=== PATIENT | male | born 1955 | race Caucasian/White ===

== ENCOUNTER 2020-01-14 16:53 | Emergency (ER) | payer SELFPAY ==
[~2020-01-14] VITALS: Ht 177.8 cm; Wt 106.6 kg
[~2020-01-14 16:53] MED LIST: ASP81TEC PO; LORA0.5T PO; PNT400TCR PO; PNT40TEC PO; PRAS10TA6 PO; SIMV80TA3 PO; ZLP10T PO
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
[2020-01-14] MEDS ORDERED: ASPIRIN 81 MG CHEW (CHILDREN'S ASA) PO ONE (17:30)
[2020-01-14 17:32] LABS: BASOPHILS % (AUTO) 0 % (0-10); EOSINOPHILS % (AUTO) 1 % (0-10); HEMATOCRIT 49 % (40-54); HEMOGLOBIN 17.5 G/DL (13.3-17.7); LYMPHOCYTES % (AUTO) 13 % (12-44); MEAN CORPUSCULAR HEMOGLOBIN 32 PG (25-34); MEAN CORPUSCULAR HGB CONC 36 G/DL (32-36); MEAN CORPUSCULAR VOLUME 89 FL (80-99); MEAN PLATELET VOLUME 9.8 FL (7.4-10.4); MONOCYTES # (AUTO) 0.4 X 10^3 (0.0-1.0); MONOCYTES % (AUTO) 5 % (0-12); NEUTROPHILS # (AUTO) 6.4 X 10^3 (1.8-7.8); NEUTROPHILS % (AUTO) 81 % (42-75); PLATELET COUNT 171 10^3/uL (130-400); RED CELL DISTRIBUTION WIDTH 13.2 % (10.0-14.5); WHITE BLOOD COUNT 7.9 10^3/uL (4.3-11.0)
[2020-01-14 17:35] VITALS: BP_SYST 136; BP_SYST 140; BP_SYST 143; BP_DIAS 79; BP_DIAS 85; BP_DIAS 87
[2020-01-14 17:41] LABS: PROTHROMBIN TIME PATIENT 13.5 SEC (12.2-14.7)
[2020-01-14 17:49] LABS: ALANINE AMINOTRANSFERASE 31 U/L (0-55); ALBUMIN 4.4 GM/DL (3.2-4.5); ALKALINE PHOSPHATASE 55 U/L (40-136); BILIRUBIN,TOTAL 0.9 MG/DL (0.1-1.0); BUN/CREATININE RATIO 14; CALCIUM 10.1 MG/DL (8.5-10.1); CARBON DIOXIDE 19 MMOL/L (21-32); CHLORIDE 102 MMOL/L (98-107); CREATININE SERUM 1.18 MG/DL (0.60-1.30); GFR ESTIMATED > 60; GLUCOSE 189 MG/DL (70-105); MAGNESIUM 1.4 MG/DL (1.6-2.4); POTASSIUM 4.2 MMOL/L (3.6-5.0); SODIUM 135 MMOL/L (135-145); TOTAL PROTEIN 7.5 GM/DL (6.4-8.2)
--- NOTE | 2020-01-14 17:57 | Diagnostic Imaging Report ---
INDICATION: Chest pain. EXAMINATION: Single view of the chest was obtained. FINDINGS: No focal pulmonary consolidation. The heart size and vascularity are upper limits of normal. No effusion or pneumothorax. IMPRESSION: Borderline cardiomegaly and vascular congestion but no focal consolidation, pleural fluid or convincing evidence for pulmonary edema. Dictated by: Dictated on workstation # [id number]
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
--- OUTSIDE RECORDS SUMMARY | 2020-01-14 19:39 | XMS REPORT ---
Author Author [employer]. Organization [employer]. Address [address] [address] Care Team Providers Care Lithographed Plate Inspector Name Role Phone MAREK GONZALESJASBIR Unavailable Unavailable OROZCO, JAC Unavailable Unavailable KIANNA BRYSON Unavailable Unavailable LINDA LADALE Unavailable Unavailable [facility] Unavailable OROZCO, JAC Unavailable OROZCO, JAC Unavailable OROZCO, JAC Unavailable OROZCO, JAC Unavailable Latha JAC Unavailable LUCIANO, FARTUN Unavailable HUERTER, FARTUN Unavailable HUERTER, FARTUN Unavailable HUERTER, FARTUN Unavailable HUERTER, FARTUN Unavailable HUERTER, FARTNU Unavailable HUERTER, FARTUN Unavailable HUERTER, FARTUN Unavailable HUERTER, FARTUN Unavailable Migration, Doctor Unavailable Unavailable Migration, Doctor Unavailable Unavailable Migration, Doctor Unavailable Unavailable Migration, Doctor Unavailable Unavailable Migration, Doctor Unavailable Unavailable Migration, Doctor Unavailable Unavailable Migration, Doctor Unavailable Unavailable Migration, Doctor Unavailable Unavailable Migration, Doctor Unavailable Unavailable Migration, Doctor Unavailable Unavailable Migration, Doctor Unavailable Unavailable Migration, Doctor Unavailable Unavailable Migration, Doctor Unavailable Unavailable Migration, Doctor Unavailable Unavailable Migration, Doctor Unavailable Unavailable Migration, Doctor Unavailable Unavailable Migration, Doctor Unavailable Unavailable Migration, Doctor Unavailable Unavailable DONTA MATSON Unavailable Migration, Doctor Unavailable Unavailable Migration, Doctor Unavailable Unavailable Migration, Doctor Unavailable Unavailable Migration, Doctor Unavailable Unavailable Migration, Doctor Unavailable Unavailable Migration, Doctor Unavailable Unavailable DONTA MATSON Unavailable [facility] PCP Allergies The data below is from unstructured sources Substance Reaction Event Type N.K.D.A. Info Not Available Non Drug Allergy No known allergies. Medications Current Medications Medication Ingredient Drug Dose Dates Status Sig Sig Care Class(es) (Normalized) (Original) Provid er amLODIPine amLODIPine Dihydropyri 2.5 mg Active no Amlodipin e no 2.5 mg oral Translation dine information Besylate 2.5 name tablet (1 s: [ Calcium MG Orally (no source.) Amlodipine Channel Once a day 1 phone) Besylate Chay tablet 24h 2.5 MG] Active Completed/Discontinued Medications Medication Ingredient Drug Dose Dates Status Sig Sig Care Class(es) (Normalized) (Original) Provid er no pantoprazol Proton Pump 03-19-20 Complete no Pantopra zole no information e Inhibitor 16 d information Sodium n jose (1 source.) Discontinued (no 40 ORAL phone) Daily 30 March 19, 2016 no Pentoxifyll Blood 03-19-20 Complete no Pentoxifylli no information ine Viscosity 16 d information ne n jose (1 source.) Fire Extinguisher Inspector Discontinued (no 400 ORAL phone) Twice A Day March 19, 2016 no zolpidem gamma-Amino 03-11-20 Complete no Zolpidem n o information butyric 12 d information Tartrate na me (1 source.) Acid-ergic Discontinued (no Agonist 1 ORAL phone) Bedtime March 11, 2012 Problems Problem Normalized Date of Normalized Normalized Provider Fac ility Classification Problem(s) Problem Problem Problem Sta tus Onset/Resoluti Duration on 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 Active Doctor [facility] atherosclerosi s of [facility] and other artery without of [facility] heart disease angina [place] ([address]054) (19 sources.) pectoris Translations: [ Arterioscleros is of coronary artery] 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 [address] [facility] disorders (20 Translations: of [facility] sources.) [ Peyronie's [place] (10558) disease, Peyronie's disease] Disorders of l findings Episodic Active JAC Communit y teeth and jaw Translations: [facility] (20 sources.) [ - Dental [address] of [facility] examination [place] ([address]78) Z01.20, - Dental caries K02.9, - Dental caries K02.9] Other Obesity, Chronic Active FARTUN WOLF [facility] nutritional; unspecified [address] [facility] endocrine; and Translations: of [facility] metabolic [ - Obesity [place] ([address]65) disorders (20 E66.9, - sources.) Obesity (BMI 30.0-34.9) E66.9, - Obesity E66.9, - Obesity (BMI 30.0-34.9) E66.9] Diabetes Type 2 Chronic Active Doctor [facility] mellitus diabetes Migration [facility] without mellitus of [facility] complication without [place] ([address]132) (20 sources.) complications Translations: [ - Type 2 diabetes mellitus without complication, without long-term current use of insulin E11.9, Type 2 diabetes mellitus without complication, without long-term current use of insulin, Type 2 diabetes mellitus without complication, without long-term current use of insulin] Procedures Procedure Normalized Procedure Procedure Result Performer Facility Date 01-05-2014 Collection capillary no information no name (no juan carlos ne) [facility] blood specimen [facility] ([id number]) 02-08-2018 Collection venous no information no name (no phone) [facility] blood venipuncture [facility] ([id number]) 12-30-2013 Collection venous no information no name (no phone) [facility] blood venipuncture [facility] (22348) 02-08-2018 Comprehensive no information no name (no phone) Co [facility] metabolic panel [facility] (36345) 08-06-2014 Comprehensive no information no name (no phone) Co [facility] metabolic panel [facility] (71563) 12-30-2013 Comprehensive no information no name (no phone) Co [facility] metabolic panel [facility] ([id number]) 12-11-2014 Echo tthrc r-t 2d no information no name (no phone) [facility] w/wom-mode compl [facility] spec&colr d [place] ([id number]) 01-14-2020 Electrocardiographic no information no name (no juan carlos ne) [place] [facility] ([id number]) 02-11-2018 Hemoglobin no information no name (no phone) [facility] glycosylated a1c [facility] ([id number]) 01-05-2014 Hemoglobin no information no name (no phone) [facility] glycosylated a1c [facility] ([id number]) 02-08-2018 Lipid panel no information no name (no phone) [facility] (29703) 08-06-2014 Lipid panel no information no name (no phone) [facility] ([id number]) 12-30-2013 Lipid panel no information no name (no phone) [facility] (30466) 12-11-2014 Myocardial spect no information no name (no phone) [facility] ([id number]) 01-14-2020 Plain chest X-ray no information no name (no phone) [place] [facility] (13018) 2013 Psychotherapy no information no name (no phone) Co [facility] w/patient 45 minutes [facility] ([id number]) Immunizations The data below is from unstructured sourcesNo immunization records. No Known Immunizations No Known Immunizations No Known Immunizations No Known Immunizations No Known Immunizations No Known Immunizations No Known Immunizations No Known Immunizations No Known Immunizations No Known Immunizations No Known Immunizations No Known Immunizations No Known Immunizations No Known Immunizations No Known Immunizations No Known Immunizations No Known Immunizations No Known Immunizations No Known Immunizations No Known Immunizations No Known Immunizations No Known Immunizations No Known Immunizations No Known Immunizations No Known Immunizations No Known Immunizations No Known Immunizations No Known Immunizations No Known Immunizations No Known Immunizations No Known Immunizations No Known Immunizations No Known Immunizations No Known Immunizations No Known Immunizations No Known Immunizations No Known Immunizations No Known Immunizations No Known Immunizations No Known Immunizations No Known Immunizations No Known Immunizations No Known Immunizations No Known Immunizations No Known Immunizations No Known Immunizations No Known Immunizations No Known Immunizations No Known Immunizations No Known Immunizations No Known Immunizations No Known Immunizations No Known Immunizations No Known Immunizations No Known Immunizations No Known Immunizations No Known Immunizations No Known Immunizations No Known Immunizations No Known Immunizations No Known Immunizations No Known Immunizations No Known Immunizations No Known Immunizations No Known Immunizations No Known Immunizations No Known Immunizations No Known Immunizations No Known Immunizations No Known Immunizations No Known Immunizations No Known Immunizations No Known Immunizations No Known Immunizations No Known Immunizations No Known ImmunizationsNo Immunization Information AvailableNo Immunization Information Available Results Test Name Value Interpretation Reference Range Date Time Fa cility (Normalized) (Normalized) (Medline Reference) a1c (in house) on null HbA1c 7.2 % (no code) 0 - 5.7 % [facility] (52631) HbA1c 6.2 % (no code) 0 - 5.7 % [facility] (33532) A1C (IN HOUSE) 0843 (no code) [facility] (65137) A1C (IN HOUSE) 12/19/2019 (no code) [facility] (71333) No panel information on 2018-11-22 Albumin 4.4 g/dL (N) 3.4 - 5.4 g/dL [facility] [Mass/Vol] [facility] (91472) Albumin/Globulin 1.6 {ratio} (N) 1 - 2.5 {ratio} [facility] [Mass ratio] [facility] (20101) ALP [Catalytic 50 U/L (N) 44 - 147 U/L [facility] Health activity/Vol] [facility] (17112) ALT [Catalytic 30 U/L (N) 4 - 40 U/L [facility] ealt activity/Vol] [facility] (01994) AST [Catalytic 28 U/L (N) 10 - 34 U/L [facility] Health activity/Vol] [facility] (91557) Bilirubin 0.9 mg/dL (N) 0.1 - 1.2 mg/dL [facility] [Mass/Vol] [facility] (03259) Calcium 9.0 mg/dL (N) 8.5 - 10.2 mg/dL [facility] [Mass/Vol] [facility] (63036) Chloride 106 mmol/L (N) 95 - 106 mmol/L [facility] [Moles/Vol] [facility] (92912) Cholesterol 213 mg/dL (H) 180 - 200 mg/dL [facility] [Mass/Vol] [facility] (23301) Cholesterol in 35 mg/dL (L) [facility] HDL [Mass/Vol] [facility] (53082) Cholesterol in 145 mg/dL (H) 0 - 100 mg/dL [facility] LDL [Mass/Vol] [facility] (53451) Cholesterol non 178 mg/dL (H) [facility] HDL [Mass/Vol] [facility] (79257) Cholesterol.tota 6.1 {ratio} (H) [facility] l/Cholesterol in [facility] HDL [Mass ratio] [facility] (44251) CO2 [Moles/Vol] 23 mmol/L (N) 23 - 29 mmol/L [facility] (92327) Creatinine 0.88 mg/dL (N) [facility] h [Mass/Vol] [facility] (88477) GFR/1.73 sq M 107 (N) 90 - 120 [facility] predicted among mL/min/{1.73_m2} mL/min/{1.73_m2} Center o f [facility] blacks MDRD [facility] (S/P/Bld) [Vol (45246) rate/Area] GFR/1.73 sq 92 (N) 90 - 120 [facility] M.predicted MDRD mL/min/{1.73_m2} mL/min/{1.73_m2} [facility] (S/P/Bld) [Vol [facility] rate/Area] (50047) Globulin (S) 2.7 g/dL (N) 2 - 3.5 g/dL [facility] ealth [Mass/Vol] [facility] (97806) Glucose 150 mg/dL (H) 60 - 125 mg/dL [facility] [Mass/Vol] [facility] (66102) Potassium 4.2 mmol/L (N) 3.7 - 5.2 mmol/L [facility] [Moles/Vol] [facility] (84886) Protein 7.1 g/dL (N) 6.4 - 8.3 g/dL [facility] [Mass/Vol] [facility] (58681) Sodium 139 mmol/L (N) 135 - 145 mmol/L [facility] [Moles/Vol] [facility] (38322) Triglyceride 191 mg/dL (H) 0 - 150 mg/dL [facility] [Mass/Vol] [facility] (14948) Urea nitrogen 15 mg/dL (N) 7 - 20 mg/dL [facility] [Mass/Vol] [facility] (63038) Urea NOT APPLICABLE (no code) [facility] nitrogen/Creatin [facility] [Mass ratio] [facility] (85868) Vital Signs Vital Sign Value Interpretation Reference Date Time Care Prov ider Facility (Normalized) (Normalized) Range BMI (Body Mass 34.31 kg/m2 (no code) 15 - 25 kg/m2 02-07-2018 Oscar BOSWELL [facility] Index) 16:40-[address] [place] [address] (16865) Body 97.8 [degF] (no code) 97.8 - 99.0 02-07-2018 [facility] Temperature [degF] 16:40-[address] [place] [address] ([id number]) Body 97.6 [degF] (no code) 97.8 - 99.0 12-11-2014 Doctor [facility] Temperature [degF] 10:20-0500 [facility] (39264) Body weight 112.24 kg (no code) kg 12-11-2014 Doctor [facility] 10:20-0500 [facility] (45700) Height 180.34 cm (no code) cm 02-07-2018 [facility] 16:40-[address] [place] [address] (72754) Height 180.34 cm (no code) cm 12-11-2014 Doctor Jose Francisco nitwale 10:20-0500 [facility] (35212) Weight 111.59 kg (no code) kg 02-07-2018 [facility] 16:40-[address] [place] [address] ([id number]) Interventions No Information Plan of Treatment Normalized Care Care Detail Care Activity Date Care Provider F acility Activity Patient Education Angina (DC) no information [facility] [place] [address] [place] [address] ([id number]) Patient referral no information no information [facility] [place] [address] [address] [facility] (46432) Goals Patient Goal Desired Goal no information no information Social History Normalized Code Original Code Date Value Tobacco smoking status Tobacco smoking status no information Smokes tobacco daily NHIS NHIS (finding) no information no information 03-19-2016 Denies Use no information no information 03-19-2016 No no information no information 01-14-2020 Denies no information no information 01-14-2020 Current Everyda y Smoker no information no information 01-14-2020 Pipe no information no information 01-14-2020 Y - BROKEN BACK TWICE, LT LATERAL ANKLE LIGAMENT Sex Assigned At Sex Assigned At no information M zoe Functional Status The data below is from unstructured sources Query Response Date Bijan rded Patient Orientation Person Place Time Situation March 20, 2016 2:22pm Comprehension Ability Understands Co ncepts March 20, 2016 8:10am No Functional Status information available Mental Status The data below is from unstructured sourcesNo Mental Status Information Available Encounters Encounter Normalized Encounter Encounter Diagnosis Care Provi miguelito Organization Date Type 01-16-2019 ([facility]) Chronic Health Type 2 diabetes FARTUN WOLF [facility] - Maintenance mellitus without phone) (no phone ) 01-16-2019 complications - 01-16-2019 07-24-2017 [facility] l findings GAGE NEARING (no [employer] [facility] phone) DENTAL (no phon e) 07-24-2017 - 07-24-2017 03-06-2018 [facility] no information FARTUN WOLF (no [facility] - phone) (no phone) 03-06-2018 - 03-06-2018 02-11-2018 [facility] Other abnormal glucose FARTUN WOLF (no [employer] [facility] - phone) (no phone) 02-11-2018 - 02-11-2018 02-11-2018 [facility] Other abnormal glucose FARTUN WOLF ([facility] - phone) (no phone) 02-11-2018 - 02-11-2018 02-08-2018 [facility] ut angina pectoris FARTUN PEREZ ([facility] - phone) (no phone) 02-08-2018 - 02-08-2018 02-07-2018 [facility] ut angina pectoris FARTUN PEREZ (no [facility] - phone) (no phone) 02-07-2018 - 02-07-2018 01-08-2018 [facility] ut angina pectoris FARTUN PEREZ (no [facility] - phone) (no phone) 01-08-2018 - 01-08-2018 12-31-2017 [facility] no information FARTUN WOLF (no [facility] - phone) (no phone) 12-31-2017 - 12-31-2017 10-09-2017 [facility] no information JAC Yash DERS (no [facility] - phone) (no phone) 10-09-2017 - 10-09-2017 05-21-2017 [facility] no information JAC zsalvadorSAN DERS (no [facility] - phone) (no phone) 05-21-2017 - 05-21-2017 05-10-2017 [facility] no information JAC zsalvadorSAN DERS (no [facility] - phone) (no phone) 05-10-2017 - 05-10-2017 01-23-2017 [facility] no information JAC zsalvadorSAN DERS (no [facility] - phone) (no phone) 01-23-2017 - 01-23-2017 01-15-2017 [facility] ut angina pectoris JAC Mitchell (no [facility] - phone) (no phone) 01-15-2017 - 01-15-2017 01-09-2017 [facility] no information JAC saeidSAN DERS (no [facility] - phone) (no phone) 01-09-2017 - 01-09-2017 01-03-2017 [facility] no information JAC zsalvadorSAN DERS (no [facility] - phone) (no phone) 01-03-2017 - 01-03-2017 01-02-2017 [facility] no information JAC zsalvadorSAN DERS (no [facility] - phone) (no phone) 01-02-2017 - 01-02-2017 12-25-2016 [facility] no information JAC MARQUEZ (no [facility] - phone) (no phone) 12-25-2016 - 12-25-2016 12-15-2016 [facility] no information BRYN GONZALES ( no [facility] - phone) (no phone) 12-15-2016 - 12-15-2016 09-11-2016 [facility] no information BRYN GONZALES ( no [facility] - phone) (no phone) 09-11-2016 - 09-11-2016 07-31-2016 [facility] Unspecified cataract JJ Azul (no [facility] - phone) (no phone) 07-31-2016 - 07-31-2016 07-26-2016 [facility] no information JAC MARQUEZ (no [facility] - phone) (no phone) 07-26-2016 - 07-26-2016 02-25-2016 [facility] Essential (primary) BRYN KEITH (no [facility] - hypertension phone) (no phone) 02-25-2016 - 02-25-2016 11-29-2015 [facility] ut angina pectoris BRYN BOLANOS (no [facility] - phone) (no phone) 11-29-2015 - 11-29-2015 10-18-2015 [facility] no information BRYN GONZALES ( no [facility] - phone) (no phone) 10-18-2015 - 10-18-2015 09-30-2015 [facility] Routine general LADALE Mykel Alvarenga (no [facility] - medical examination at phone) (no juan carlos ne) 09-30-2015 a health care facility - 09-30-2015 09-03-2015 [facility] ut angina pectoris JAC Mitchell (no [facility] - phone) (no phone) 09-03-2015 - 09-03-2015 08-20-2015 [facility] ut angina pectoris BRYN BOLANOS (no [facility] - phone) (no phone) 08-20-2015 - 08-20-2015 08-13-2015 [facility] ut angina pectoris BRYN BOLANOS (no [facility] - phone) (no phone) 08-13-2015 - 08-13-2015 08-13-2015 [facility] no information BRYSON HUTCHISON (no phone) [facility] - (no phone) 08-13-2015 - 08-13-2015 02-02-2015 [facility] no information Doctor Migrati on (no [facility] - phone) (no phone) 02-02-2015 - 02-02-2015 02-01-2015 [facility] no information Doctor Migrati on [facility] (no phone) 02-01-2015 - 02-01-2015 12-11-2014 [facility] no information Doctor Migrati on (no [facility] - phone) (no phone) 12-11-2014 - 12-11-2014 11-24-2014 [facility] no information Doctor Migrati on (no [facility] - phone) (no phone) 11-24-2014 - 11-24-2014 11-16-2014 [facility] no information Doctor Migrati on ([facility] (no phone) 11-16-2014 - 11-16-2014 11-13-2014 [facility] no information Doctor Migrati on ([facility] (no phone) 11-13-2014 - 11-13-2014 11-11-2014 [facility] no information Doctor Migrati on (no [facility] - phone) (no phone) 11-11-2014 - 11-11-2014 10-29-2014 [facility] no information Doctor Migrati on ([facility] (no phone) 10-29-2014 - 10-29-2014 10-27-2014 [facility] no information Doctor Migrati on (no [facility] - phone) (no phone) 10-27-2014 - 10-27-2014 10-13-2014 [facility] no information Doctor Migrati on (no [facility] - phone) (no phone) 10-13-2014 - 10-13-2014 08-31-2014 [facility] no information Doctor Migrati on (no [facility] - phone) (no phone) 08-31-2014 - 08-31-2014 08-13-2014 [facility] no information DONTA MATSON (no [facility] - phone) Doctor (no phone) 08-13-2014 Migration (no phone) - DONTA MATSON (no 08-13-2014 phone) Doctor Migration (no phone) DONTA CHRISTIANSONKHOUT (no phone) Doctor Migration (no phone) 08-10-2014 [facility] no information Doctor Migrati on (no [facility] - phone) (no phone) 08-10-2014 - 08-10-2014 08-06-2014 [facility] no information Doctor Migrati on (no [facility] - phone) (no phone) 08-06-2014 - 08-06-2014 08-04-2014 [facility] no information Doctor Migrati on (no [facility] - phone) (no phone) 08-04-2014 - 08-04-2014 08-03-2014 [facility] no information Doctor Migrati on (no [facility] - phone) (no phone) 08-03-2014 - 08-03-2014 06-26-2014 [facility] no information Doctor Migrati on (no [facility] - phone) (no phone) 06-26-2014 - 06-26-2014 06-05-2014 [facility] no information Doctor Migrati on (no [facility] - phone) (no phone) 06-05-2014 - 06-05-2014 05-29-2014 [facility] no information Doctor Migrati on (no [facility] - phone) (no phone) 05-29-2014 - 05-29-2014 05-19-2014 [facility] no information Doctor Migrati on (no [facility] - phone) (no phone) 05-19-2014 - 05-19-2014 05-18-2014 [facility] no information Doctor Migrati on (no [facility] - phone) (no phone) 05-18-2014 - 05-18-2014 04-27-2014 [facility] no information Doctor Migrati on (no [facility] - phone) (no phone) 04-27-2014 - 04-27-2014 02-06-2014 [facility] no information Doctor Migrati on (no [facility] - phone) (no phone) 02-06-2014 - 02-06-2014 01-08-2014 [facility] no information Doctor Migrati on (no [facility] - phone) (no phone) 01-08-2014 - 01-08-2014 01-05-2014 [facility] no information Doctor Migrati on (no [facility] - phone) (no phone) 01-05-2014 - 01-05-2014 12-30-2013 [facility] no information Doctor Migrati on (no [facility] - phone) (no phone) 12-30-2013 - 12-30-2013 11-07-2013 [facility] no information Doctor Migrati on (no [facility] - phone) (no phone) 11-07-2013 - 11-07-2013 2013 [facility] no information Doctor Migrati on (no [facility] - phone) DONTA MATSON (no phone) 2013 (no phone) DONTA MATSON (no phone) 2013 Doctor Migration (no phone) DONTA MATSON (no phone) Doctor Migration (no phone) 10-06-2013 [facility] no information Doctor Migrati on (no [facility] - phone) (no phone) 10-06-2013 - 10-06-2013 10-02-2013 [facility] no information Doctor Migrati on (no [facility] - phone) (no phone) 10-02-2013 - 10-02-2013 10-01-2013 [facility] no information Doctor Migrati on (no [facility] - phone) (no phone) 10-01-2013 - 10-01-2013 09-23-2013 [facility] no information Doctor Migrati on (no [facility] - phone) DONTA MATSON (no phone) 09-23-2013 (no phone) DONTA - DANO (no phone) 09-23-2013 Doctor Migration (no phone) DONTA MATSON (no phone) Doctor Migration (no phone) 09-02-2013 [facility] no information DONTA BOERAMON (no [facility] - phone) Doctor (no phone) 09-02-2013 [facility] (no phone) - Doctor Migration (no 09-02-2013 phone) DONTA MATSON (no phone) DONTA MATSON (no phone) Doctor Migration (no phone) 08-21-2013 [facility] no information ODNTA BOESUKHWINDEROUT (no [facility] - phone) Doctor (no phone) 08-21-2013 [facility] (no phone) - DONTA MATSON (no 08-21-2013 phone) Doctor Migration (no phone) Doctor Migration (no phone) DONTA BOEKHOUT (no phone) 08-12-2013 [facility] no information DONTA BOESUKHWINDEROUT (no [facility] - phone) Doctor (no phone) 08-12-2013 [facility] (no phone) - Doctor Migration (no 08-12-2013 phone) DONTA BOESUKHWINDEROUT (no phone) Doctor Migration (no phone) DONTA SAWYEROUT (no phone) 08-05-2013 [facility] no information Doctor Migrati on (no [facility] - phone) (no phone) 08-05-2013 - 08-05-2013 07-21-2013 [facility] no information Doctor Migrati on (no [facility] - phone) (no phone) 07-21-2013 - 07-21-2013 07-09-2013 [facility] no information Doctor Migrati on (no [facility] - phone) [facility] (no phone) 07-09-2013 (no phone) Doctor - Migration (no phone) 07-09-2013 DONTA [facility]ERUNM [facility] (no phone) Doctor Migration (no phone) [facility] 07-08-2013 [facility] no information Doctor Migrati on (no [facility] - phone) (no phone) 07-08-2013 - 07-08-2013 06-24-2013 [facility] no information Doctor Migrati on (no [facility] - phone) (no phone) 06-24-2013 - 06-24-2013 05-23-2013 [facility] no information Doctor Migrati on (no [facility] - phone) (no phone) 05-23-2013 - 05-23-2013 05-21-2013 [facility] no information Doctor Migrati on (no [facility] - phone) (no phone) 05-21-2013 - 05-21-2013 05-19-2013 [facility] no information Doctor Migrati on (no [facility] - phone) (no phone) 05-19-2013 - 05-19-2013 04-21-2013 [facility] no information Doctor Migrati on (no [facility] - phone) (no phone) 04-21-2013 - 04-21-2013 03-19-2013 [facility] no information Doctor Migrati on (no [facility] - phone) (no phone) 03-19-2013 - 03-19-2013 01-20-2013 [facility] no information [facility] 01-20-2013 - 01-20-2013 01-03-2013 [facility] no information Doctor Migrati on (no [facility] - phone) (no phone) 01-03-2013 - 01-03-2013 01-02-2013 [facility] no information Doctor Migrati on (no [facility] - phone) (no phone) 01-02-2013 - 01-02-2013 12-20-2012 [facility] no information MARIETTA JOEY ( [facility] (no phone) 12-20-2012 - 12-20-2012 12-19-2012 [facility] no information Doctor Migrati on ([facility] (no phone) 12-19-2012 - 12-19-2012 11-28-2012 [facility] no information Doctor Migrati on ([facility] (no phone) 11-28-2012 - 11-28-2012 11-20-2012 [facility] no information Doctor Migrati on (no [facility] - phone) (no phone) 11-20-2012 - 11-20-2012 11-15-2012 [facility] no information Doctor Migrati on (no [facility] - phone) (no phone) 11-15-2012 - 11-15-2012 11-14-2012 [facility] no information Doctor Migrati on ([facility] (no phone) 11-14-2012 - 11-14-2012 11-07-2012 [facility] no information Doctor Migrati on (no [facility] - phone) (no phone) 11-07-2012 - 11-07-2012 11-06-2012 [facility] no information Doctor Migrati on ([facility] (no phone) 11-06-2012 - 11-06-2012 10-31-2012 [facility] no information Doctor Migrati on (no

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
--- OUTSIDE RECORDS SUMMARY | 2020-01-14 19:40 | XMS REPORT ---
Author Author Jose Francisco Boykin Doctor Organization [facility] Address Unknown Phone Unavailable Care Team Providers Care Baker Pastry Name Role Phone Migration, Doctor Unavailable Unavailable PROBLEMS Type Condition ICD9-CM Code [id number] Code Onset Dates Condition S tatus SNOMED Code Problem Peyronie's disease 607.85 Active 1 340395 Problem CAD (coronary artery disease) I25.10 Active 02693721 Problem Arteriosclerosis of coronary artery I25.10 Active [id number] Problem Type 2 diabetes mellitus wit hout complication, without long-term current use of insulin E11.9 Active 664632411 Problem Hyperlipemia E78.5 Active 0944556 4 Problem Back pain M54.9 Active 764067983 Problem Essential hypertension I10 Active 86046206 Problem Cataracts, both eyes H26.9 Active 02397228 ALLERGIES No Information ENCOUNTERS Encounter Location Date Diagnosis [facility] [address] [facility] [id number] [address] [place] [phone] Dec, Type 2 diabetes mellitus wit hout complication, without long-term current use of insulin E11.9 and Back pain M54.9 [facility] [address] [facility] [id number] [address] [place] [address] Nov, Arteriosclerosis of coronary artery I25.10 [facility] [address] [id number] [address] [place] [address] Oct, Arteriosclerosis of coronary artery I25.10 [facility] [address] [id number] [address] [place] [address] Oct, [facility] [address] [id number] [address] [place] [phone] May, [facility] [address] [facility] [id number] [address] [place] [phone] May, [facility] [address] [facility] [id number] [address] [place] [phone] February, [facility] [address] [id number] [address] [place] [phone] Jan, Elevated glucose level R73.0 9 [facility] [address] [id number] [address] [place] [phone] Jan, Elevated glucose level R73.0 9 [facility] [address] [id number] [address] [place] [address] Jan, CAD (coronary artery disease ) I25.10 [facility] [address] [id number] [address] [place] [phone] Jan, CAD (coronary artery disease ) I25.10 ; Essential hypertension I10 ; Hyperlipemia E78.5 and Back pain M54.9 [facility] [address] [id number] [address] [place] [address] Dec, CAD (coronary artery disease ) I25.10 [facility] [address] [id number] [address] [place] [address] Dec, [facility] [address] [id number] [address] [place] [address] Sep, [facility] [address] [id number] [address] [place] [id number] Jul, Dental examination Z01.20 an d Dental caries K02.9 [facility] [address] [id number] [address] [place] [phone] Apr, [facility] [address] [id number] [address] [place] [phone] Apr, [facility] [address] [id number] [address] [place] [phone] Jan, [facility] [address] [id number] [address] [place] [address] Dec, CAD (coronary artery disease ) I25.10 ; Essential hypertension I10 ; Hyperlipemia E78.5 ; Back pain M54.9 and Coronary artery disease involving citizen [place] coronary artery, angina presence unspecified, unspecified whether citizen [place] or transplanted heart I25.10 [facility] [address] [id number] [address] [place] [phone] Dec, [facility] [address] [id number] [address] [place] [phone] Dec, [facility] [address] [id number] [address] [place] [phone] Dec, [facility] [address] [id number] [address] [place] [address] Dec, [facility] [address] [id number] [address] [place] [phone] Dec, [facility] [address] [id number] [address] [place] [phone] Nov, [facility] [address] [id number] [address] [place] [address] Aug, [facility] [address] [id number] [address] [place] [phone] Jul, Cataracts, both eyes H26.9 ; Essential hypertension I10 ; Back pain M54.9 ; Coronary artery disease involving citizen [place] coronary artery, angina presence unspecified, unspecified whether citizen [place] or transplanted heart I25.10 and Pure hypercholesterolemia E78.00 [facility] [address] [id number] [address] [place] [phone] Jul, [facility] [address] [id number] [address] [place] [phone] February, Hypertension I10 ; Hyperlipe skip E78.5 ; Coronary artery disease involving citizen [place] coronary artery of citizen [place] heart, angina presence unspecified I25.10 and Obesity (BMI 30.0-34.9) E66.9 [facility] [address] [id number] [address] [place] [address] 08 Nov, 2015 CAD (coronary artery disease ) I25.10 [facility] [address] [facility] [id number] [address] [place] [phone] Sep, [facility] [address] [facility] [id number] [place] [address] Sep, Routine general medical exam ination at [facility] V70.0 ; Other nonspecific findings on examination of blood, elevated C-reactive protein (CRP) 790.95 ; Lumbago 724.2 ; Peyronie's disease 607.85 ; Coronary atherosclerosis of unspecified type of vessel, citizen [place] or graft 414.00 and Other and unspecified hyperlipidemia 272.4 [place] [address] [facility] [id number] [place] [address] Aug, CAD (coronary artery disease ) I25.10 ; Hypertension I10 ; Hyperlipemia E78.5 and Back pain M54.9 [place] [address] [address] Jul, CAD (coronary artery disease ) I25.10 [place] [address] [address] Jul, [facility] [address] [place] [id number] [place] [address] Jul, CAD (coronary artery disease ) I25.10 ; Hypertension I10 ; Hyperlipemia E78.5 and Obesity E66.9 [facility] [address] [place] [id number] [address] [place] [phone] Jan, [facility] [address] [facility] [id number] [address] [place] [phone] Jan, [facility] [address] [place] [id number] [place] [address] Nov, [facility] [address] [place] [id number] [address] [place] [phone] Nov, [facility] [address] [address] Nov, [facility] [address] [id number] [address] [place] [address], [place] [address] Nov, [facility] [address] [id number] [address] [place] [address], [place] [address] Oct, [facility] [address] [id number] [address] [place] [address], [place] [address] Oct, [facility] [address] [id number] [address] [place] [address], [place] [address] Oct, [facility] [address] [id number] [address] [place] [address], [place] [address] Oct, [facility] [address] [id number] [address] [place] [address], [place] [address] Oct, [facility] [address] [id number] [address] [place] [address], [place] [address] Oct, [facility] [address] [id number] [address] [place] [address], [place] [address] Oct, [facility] [address] [id number] [address] [place] [address], [place] [address] Oct, [facility] [address] [id number] [address] [place] [address], [place] [address] Oct, [facility] [address] [id number] [address] [place] [address], [place] [address] Oct, [facility] [address] [id number] [address] [place] [address], [place] [address] Oct, [facility] [address] [id number] [address] [place] [address], [place] [address] Oct, [facility] [address] [id number] [address] [place] [address], [place] [address] Sep, [facility] [address] [id number] [address] [place] [address], [place] [address] Sep, [facility] [address] [id number] [address] [place] [address], [place] [address] 10 Aug, 2014 [facility] [address] [id number] [address] [place] [address], [place] [address] Aug, [facility] [address] [id number] [address] [place] [address], [place] [address] 23 Jul, 2014 [facility] [address] [id number] [address] [place] [address], [place] [address] 23 Jul, 2014 [facility] [address] [id number] [address] [place] [address], [place] [address] 20 Jul, 2014 [facility] [address] [id number] [address] [place] [address], [place] [address] 20 Jul, 2014 [facility] [address] [id number] [address] [place] [address], [place] [address] 16 Jul, 2014 [facility] [address] [id number] [address] [place] [address], [place] [address] 16 Jul, 2014 [facility] [address] [id number] [address] [place] [address], [place] [address] 14 Jul, 2014 [facility] [address] [id number] [address] [place] [address], [place] [address] 14 Jul, 2014 [facility] [address] [id number] [address] [place] [address], [place] [address] 13 Jul, 2014 [facility] [address] [id number] [address] [place] [address], [place] [address] 13 Jul, 2014 [facility] [address] [id number] [address] [place] [address], [place] [address] 05 Jun, 2014 [facility] [address] [id number] [address] [place] [address], [place] [address] 05 Jun, 2014 [facility] [address] [id number] [address] [place] [address], [place] [address] 15 May, 2014 [facility] [address] [id number] [address] [place] [address], [place] [address] 15 May, 2014 [facility] [address] [id number] [facility] [place] [address] May, [facility] [address] [id number] [address] [place] [address], [place] [address] May, [facility] [address] [id number] [address] [place] [address], [place] [address] Apr, [facility] [address] [id number] [address] [place] [address], [place] [address] Apr, [facility] [address] [id number] [address] [place] [address], [place] [address] Apr, [facility] [address] [id number] [address] [place] [address], [place] [address] Apr, [facility] [address] [id number] [address] [place] [address], [place] [address] Apr, [facility] [address] [id number] [address] [place] [address], [place] [address] Apr, [facility] [address] [id number] [address] [place] [address], [place] [address] Apr, [facility] [address] [id number] [address] [place] [address], [place] [address] Apr, [facility] [address] [id number] [address] [place] [address], [place] [address] Jan, [facility] [address] [id number] [address] [place] [address], [place] [address] Jan, [facility] [address] [id number] [address] [place] [address], [place] [address] Dec, [facility] [address] [id number] [address] [place] [address], [place] [address] Dec, [facility] [address] [id number] [address] [place] [address], [place] [address] 17 Dec, 2013 [facility] [address] [id number] [address] [place] [address], [place] [address] 17 Dec, 2013 [facility] [address] [id number] [address] [place] [address], [place] [address] 17 Dec, 2013 [facility] [address] [id number] [address] [place] [address], [place] [address] 17 Dec, 2013 [facility] [address] [id number] [address] [place] [address], [place] [address] 11 Dec, 2013 [facility] [address] [id number] [address] [place] [address], [place] [address] Dec, [facility] [address] [id number] [address] [place] [address], [place] [address] Oct, [facility] [address] [id number] [address] [place] [address], [place] [address] Oct, [facility] [address] [id number] [address] [place] [address], [place] [address] 30 Sep, 2013 [facility] [address] [id number] [address] [place] [address], [place] [address] 30 Sep, 2013 [facility] [address] [id number] [address] [place] [address], [place] [address] Sep, [facility] [address] [id number] [address] [place] [address], [place] [address] Sep, [facility] [address] [id number] [address] [place] [address], [place] [address] Sep, [facility] [address] [id number] [address] [place] [address], [place] [address] Sep, [facility] [address] [id number] [address] [place] [address], [place] [address] Sep, [facility] [address] [id number] [address] [place] [address], [place] [address] Sep, [facility] [address] [id number] [address] [place] [address], [place] [address] Sep, [facility] [address] [id number] [address] [place] [address], [place] [address] Aug, [facility] [address] [id number] [address] [place] [address], [place] [address] Aug, [facility] [address] [id number] [address] [place] [address], [place] [address] Jul, [facility] [address] [id number] [address] [place] [address], [place] [address] Jul, [facility] [address] [id number] [address] [place] [address], [place] [address] Jul, [facility] [address] [id number] [address] [place] [address], [place] [address] Jul, [facility] [address] [id number] [address] [place] [address], [place] [address] 15 Jul, 2013 [facility] [address] [id number] [address] [place] [address], [place] [address] 15 Jul, 2013 [facility] [address] [id number] [address] [place] [address], [place] [address] 30 Jun, 2013 [facility] [address] [id number] [address] [place] [address], [place] [address] 18 Jun, 2013 [facility] [address] [id number] [address] [place] [address], [place] [address] 18 Jun, 2013 [facility] [address] [id number] [address] [place] [address], [place] [address] 17 Jun, 2013 [facility] [address] [id number] [address] [place] [address], [place] [address] 03 Jun, 2013 [facility] [address] [id number] [address] [place] [address], [place] [address] May, [facility] [address] [id number] [address] [place] [address], [place] [address] Apr, [facility] [address] [id number] [address] [place] [address], [place] [address] Apr, [facility] [address] [id number] [address] [place] [address], [place] [address] Apr, [facility] [address] [id number] [address] [place] [address], [place] [address] February, [facility] [address] [id number] [address] [place] [address], [place] [address] Jan, [facility] [address] [id number] [address] [place] [address], [place] [address] Dec, [facility] [address] [id number] [address] [place] [address], [place] [address] Dec, [facility] [address] [id number] [address] [place] [address], [place] [address] Dec, [facility] [address] [id number] [address] [place] [address], [place] [address] Nov, [facility] [address] [id number] [address] [place] [address], [place] [address] Nov, [facility] [address] [id number] [address] [place] [address], [place] [address] Oct, [facility] [address] [id number] [address] [place] [address], [place] [address] Oct, [facility] [address] [id number] [address] [place] [address], [place] [address] Oct, [facility] [address] [id number] [address] [place] [address], [place] [address] Oct, [facility] [address] [id number] [address] [place] [address], [place] [address] Oct, [facility] [address] [id number] [address] [place] [address], [place] [address] Oct, [facility] [address] [id number] [address] [place] [address], [place] [address] 16 Oct, 2012 [facility] [address] [id number] [address] [place] [address] Oct, [facility] [address] [id number] [address] [place] [address], [place] [address] Oct, [facility] [address] [id number] [address] [place] [address], [place] [address] Oct, [facility] [address] [id number] [address] [place] [address], [place] [address] Oct, [facility] [address] [id number] [address] [place] [address], [place] [address] Oct, [facility] [address] [id number] [address] [place] [address], [place] [address] Sep, [facility] [address] [id number] [address] [place] [address], [place] [address] Sep, [facility] [address] [id number] [address] [place] [address], [place] [address] Sep, [facility] [address] [id number] [address] [place] [address], [place] [address] Sep, [facility] [address] [id number] [address] [place] [address], [place] [address] Sep, [facility] [address] [id number] [address] [place] [address], [place] [address] Sep, [facility] [address] [id number] [address] [place] [address], [place] [phone] Sep, [facility] [address] [id number] [address] [place] [address], [place] [address] Sep, [facility] [address] [id number] [address] [place] [address], [place] [phone] Jul, [facility] [address] [id number] [address] [place] [address], [place] [address] Jun, [facility] [address] [id number] [address] [place] [address], [place] [address] Jun, [facility] [address] [id number] [address] [place] [phone] Jun, [facility] [address] [id number] [address] [place] [phone] May, [facility] [address] [id number] [address] [place] [id number] May, [facility] [address] [id number] [address] [place] [phone] May, [facility] [address] [id number] [address] [place] [phone] Apr, [facility] [address] [id number] [address] [place] [phone] Apr, [facility] [address] [id number] [address] [place] [phone] Mar, [facility] [address] [id number] [address] [place] [phone] Mar, [facility] [address] [id number] [address] [place] [phone] Mar, [facility] [address] [id number] [address] [place] [phone] Mar, [facility] [address] [id number] [address] [place] [phone] Nov, [facility] [address] [id number] [address] [place] [phone] Nov, IMMUNIZATIONS No Known Immunizations SOCIAL HISTORY Never Assessed REASON FOR VISIT PLAN OF CARE VITAL SIGNS MEDICATIONS Unknown Medications RESULTS No Results PROCEDURES No Known procedures INSTRUCTIONS MEDICATIONS ADMINISTERED No Known Medications MEDICAL (GENERAL) HISTORY Type Description Date Medical History HTN Medical History CAD Medical History Coronary atherosclerosis of unspecified type of vessel, citizen [place] or graft Medical History heart attack Surgical [...]
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
--- OUTSIDE RECORDS SUMMARY | 2020-01-14 19:40 | XMS REPORT ---
Author Author Jose Francisco Boykin Doctor Organization [facility] Address Unknown Phone Unavailable Care Team Providers Care Knobber Name Role Phone Migration, Doctor Unavailable Unavailable PROBLEMS Type Condition ICD9-CM Code [id number] Code Onset Dates Condition S tatus SNOMED Code Problem Peyronie's disease 607.85 Active 1 392019 Problem CAD (coronary artery disease) I25.10 Active 51941753 Problem Arteriosclerosis of coronary artery I25.10 Active 097163833005482 Problem Type 2 diabetes mellitus wit hout complication, without long-term current use of insulin E11.9 Active 611014001 Problem Hyperlipemia E78.5 Active 5933492 4 Problem Back pain M54.9 Active 316499696 Problem Essential hypertension I10 Active 67263919 Problem Cataracts, both eyes H26.9 Active [id number] ALLERGIES No Information ENCOUNTERS Encounter Location Date Diagnosis [place] [address] [address] Dec, Type 2 diabetes mellitus without complic ation, without long-term current use of insulin E11.9 and Back pain M54.9 [place] [address] [address] Nov, Arteriosclerosis of coronary artery I25. 10 [place] [address] [address] Oct, Arteriosclerosis of coronary artery I25. 10 [place] [address] [address] Oct, [place] [address] [address] May, [place] [address] [address] May, [facility] [address] [address] February, [facility] [id number] [place] [address] Jan, Elevated glucose level R73.09 [facility] [address] [address] Jan, Elevated glucose level R73.09 [facility] [address] [address] Jan, CAD (coronary artery disease) I25.10 [facility] [address] [address] Jan, CAD (coronary artery disease) I25.10 ; E ssential hypertension I10 ; Hyperlipemia E78.5 and Back pain M54.9 [facility] [address] [address] Dec, CAD (coronary artery disease) I25.10 [place] [address] [address] Dec, [facility] [address] [address] Sep, [facility] [id number] [place] [id number] Jul, Dental examination Z01.20 and Dental car ies K02.9 [facility] [id number] [place] [address] Apr, [facility] [address] [address] Apr, [facility] [address] [address] Jan, [facility] [address] [address] Dec, CAD (coronary artery disease) I25.10 ; E ssential hypertension I10 ; Hyperlipemia E78.5 ; Back pain M54.9 and Coronary artery disease involving [place] coronary artery, angina presence unspecified, unspecified whether [place] or transplanted heart I25.10 [facility] [address] [address] Dec, [facility] [address] [address] Dec, [facility] [address] [address] Dec, [facility] [address] [address] Dec, [facility] [address] [address] Dec, [facility] [address] [address] Nov, [facility] [address] [address] Aug, [place] [address] [address] Jul, Cataracts, both eyes H26.9 ; Essential h ypertension I10 ; Back pain M54.9 ; Coronary artery disease involving [place] coronary artery, angina presence unspecified, unspecified whether [place] or transplanted heart I25.10 and Pure hypercholesterolemia E78.00 [place] [address] [address] Jul, [facility] [address] [address] February, Hypertension I10 ; Hyperlipemia E78.5 ; Coronary artery disease involving [place] coronary artery of [place] heart, angina presence unspecified I25.10 and Obesity (BMI 30.0-34.9) E66.9 [place] [address] [address] Nov, CAD (coronary artery disease) I25.10 [facility] [address] [address] Sep, [facility] [address] [address] Sep, Routine general medical examination at [facility] V70.0 ; Other nonspecific findings on examination of blood, elevated C-reactive protein (CRP) 790.95 ; Lumbago 724.2 ; Peyronie's disease 607.85 ; Coronary atherosclerosis of unspecified type of vessel, [place] or graft 414.00 and Other and unspecified hyperlipidemia 272.4 [place] [address] [address] Aug, CAD (coronary artery disease) I25.10 ; H ypertension I10 ; Hyperlipemia E78.5 and Back pain M54.9 [place] [address] [address] Jul, CAD (coronary artery disease) I25.10 [place] [address] [address] Jul, [facility] [address] [address] Jul, CAD (coronary artery disease) I25.10 ; H ypertension I10 ; Hyperlipemia E78.5 and Obesity E66.9 [facility] [address] [address] Jan, [facility] [address] [address] Jan, [facility] [address] [address] Nov, [facility] [address] [address] Nov, [facility] [address] [address] Nov, [facility] [address] [address] Nov, [facility] [address] [address] Oct, [facility] [place] [facility] [address] [id number] [place] [address] Oct, [facility] [place] [facility] [address] [id number] [place] [address] Oct, [facility] [place] [facility] [address] [id number] [place] [address] Oct, [facility] [place] [facility] [address] [id number] [place] [address] Oct, [facility] [place] [facility] [address] [id number] [place] [address] Oct, [facility] [place] [facility] [address] [id number] [place] [address] Oct, [facility] [place] [facility] [address] [id number] [place] [address] Oct, [facility] [place] [facility] [address] [id number] [place] [address] Oct, [facility] [place] [facility] [address] [id number] [place] [address] Oct, [facility] [place] [facility] [address] [id number] [place] [address] Oct, [facility] [place] [facility] [address] [id number] [place] [address] Oct, [facility] [place] [facility] [address] [id number] [place] [address] Sep, [facility] [place] [facility] [address] [id number] [place] [address] Sep, [facility] [place] [facility] [address] [id number] [place] [address] Aug, [facility] [place] [facility] [address] [id number] [place] [address] Aug, [facility] [place] [facility] [address] [id number] [place] [address] Jul, [facility] [place] [facility] [address] [id number] [place] [address] Jul, [facility] [place] [facility] [address] [facility] [id number] [place] [address] Jul, [facility] [place] [facility] [address] [facility] [id number] [place] [address] Jul, [facility] [place] [facility] [address] [facility] [id number] [place] [address] 16 Jul, 2014 [facility] [place] [facility] [address] [facility] [id number] [place] [address] 16 Jul, 2014 [facility] [place] [facility] [address] [facility] [id number] [place] [address] Jul, [facility] [place] [facility] [address] [facility] [id number] [place] [address] 14 Jul, 2014 [facility] [place] [facility] [address] [id number] [place] [address] Jul, [facility] [place] [facility] [address] [id number] [place] [address] Jul, [facility] [place] [facility] [address] [facility] [id number] [place] [address] Jun, [facility] [place] [facility] [address] [id number] [place] [address] Jun, [facility] [place] [facility] [address] [id number] [place] [address] May, [facility] [place] [facility] [address] [id number] [place] [address] May, [facility] [place] [facility] [address] [facility] [id number] [place] [address] May, [facility] [place] [facility] [address] [facility] [id number] [place] [address] May, [facility] [place] [facility] [address] [facility] [id number] [place] [address] Apr, [facility] [place] [facility] [address] [id number] [place] [address] Apr, [facility] [place] [facility] [address] [facility] [id number] [place] [address] Apr, 2013 [facility] [place] [facility] [address] [id number] [facility] [place] [address] Apr, [facility] [place] [facility] [address] [facility] [id number] [place] [address] Apr, [facility] [place] [facility] [address] [id number] [place] [address] Apr, [facility] [place] [facility] [address] [facility] [id number] [place] [address] Apr, [facility] [place] [facility] [address] [facility] [id number] [place] [address] Apr, [facility] [place] [facility] [address] [id number] [place] [address] Jan, [facility] [place] [facility] [address] [id number] [place] [address] Jan, [facility] [place] [facility] [address] [id number] [place] [address] Dec, [facility] [place] [facility] [address] [id number] [place] [address] Dec, [facility] [place] [facility] [address] [id number] [place] [address] Dec, [facility] [place] [facility] [address] [id number] [place] [address] Dec, [facility] [place] [facility] [address] [id number] [place] [address] Dec, [facility] [place] [facility] [address] [facility] [id number] [place] [address] Dec, [facility] [place] [facility] [address] [id number] [place] [address] Dec, [facility] [place] [facility] [address] [id number] [place] [address] Dec, [facility] [place] [facility] [address] [id number] [place] [address] Oct, [facility] [place] [facility] [address] [id number] [place] [address] Oct, [facility] [place] [facility] [address] [id number] [place] [address] Sep, [facility] [place] [facility] [address] [id number] [place] [address] 30 Sep, 2013 [facility] [place] [facility] [address] [id number] [place] [address] Sep, [facility] [place] [facility] [address] [id number] [place] [address] Sep, [facility] [place] [facility] [address] [id number] [place] [address] Sep, [facility] [place] [facility] [address] [id number] [place] [address] Sep, [facility] [place] [facility] [address] [id number] [place] [address] Sep, [facility] [place] [facility] [address] [id number] [place] [address] Sep, [facility] [place] [facility] [address] [id number] [place] [address] Sep, [facility] [place] [facility] [address] [id number] [place] [address] Aug, [facility] [place] [facility] [address] [id number] [place] [address] Aug, [facility] [place] [facility] [address] [id number] [place] [address] 31 Jul, 2013 [facility] [place] [facility] [address] [id number] [place] [address] 31 Jul, 2013 [facility] [place] [facility] [id number] [place] [address] 22 Jul, 2013 [facility] [place] [facility] [address] [id number] [place] [address] 22 Jul, 2013 [facility] [place] [facility] [address] [id number] [place] [address] 15 Jul, 2013 [facility] [place] [facility] [address] [facility] [id number] [place] [address] 15 Jul, 2013 [facility] [place] [facility] [address] [id number] [place] [address] 30 Jun, 2013 [facility] [place] [facility] [address] [id number] [place] [address] 18 Jun, 2013 [facility] [place] [facility] [address] [id number] [place] [address] 18 Jun, 2013 [facility] [place] [facility] [address] [facility] [id number] [place] [address] 17 Jun, 2013 [facility] [place] [facility] [address] [id number] [place] [address] Jun, [facility] [place] [facility] [address] [id number] [place] [address] May, [facility] [place] [facility] [address] [id number] [place] [address] Apr, [facility] [place] [facility] [address] [id number] [place] [address] Apr, [facility] [place] [facility] [address] [id number] [place] [address] Apr, [facility] [place] [facility] [address] [id number] [place] [address] February, [facility] [place] [facility] [address] [id number] [place] [address] Jan, [facility] [place] [facility] [address] [id number] [place] [address] Dec, [facility] [place] [facility] [address] [id number] [place] [address] Dec, [facility] [place] [facility] [address] [id number] [place] [address] Dec, [facility] [place] [facility] [address] [id number] [place] [address] Nov, [facility] [place] [facility] [address] [id number] [place] [address] 07 Nov, 2012 [facility] [place] [facility] [address] [id number] [place] [address] Oct, [facility] [place] [facility] [address] [id number] [place] [address] Oct, [facility] [place] [facility] [address] [id number] [place] [address] Oct, [facility] [place] [facility] [address] [id number] [place] [address] Oct, [facility] [place] [facility] [address] [id number] [place] [address] Oct, [facility] [place] [facility] [address] [id number] [place] [address] Oct, [facility] [place] [facility] [address] [id number] [place] [address] Oct, [facility] [place] [facility] [address] [id number] [place] [address] Oct, [facility] [place] [facility] [address] [id number] [place] [address] Oct, [facility] [place] [facility] [address] [id number] [place] [address] Oct, [facility] [place] [facility] [address] [id number] [place] [address] Oct, [facility] [place] [facility] [address] [id number] [place] [address] Oct, [facility] [place] [facility] [address] [id number] [place] [address] Sep, [facility] [place] [facility] [address] [id number] [place] [address] Sep, [facility] [place] [facility] [address] [id number] [place] [address] Sep, [facility] [place] [facility] [address] [id number] [place] [address] Sep, [facility] [place] [facility] [address] [id number] [place] [address] Sep, [facility] [place] [facility] [address] [id number] [place] [address] Sep, [facility] [place] [facility] [address] [id number] [place] [address] Sep, [facility] [place] [facility] [address] [id number] [place] [address] Sep, [facility] [place] [facility] [address] [id number] [place] [address] Jul, [facility] [place] [facility] [address] [id number] [place] [address] Jun, [facility] [place] [facility] [address] [id number] [place] [address] Jun, [facility] [place] [facility] [address] [id number] [place] [address] Jun, [facility] [place] [facility] [address] [id number] [place] [address] May, [facility] [place] [facility] [address] [id number] [place] [address] May, [facility] [place] [facility] [address] [id number] [place] [address] May, [facility] [place] [facility] [address] [id number] [place] [address] Apr, [facility] [place] [facility] [address] [id number] [place] [address] Apr, [facility] [place] [facility] [address] [id number] [place] [address] Mar, [facility] [place] [facility] [address] [id number] [place] [address] Mar, [facility] [place] [facility] [address] [id number] [place] [address] Mar, [facility] [place] [facility] [address] [id number] [place] [address] Mar, [facility] [address] [facility] [id number] [place] [address] Nov, [facility] [address] [facility] [id number] [place] [address] Nov, IMMUNIZATIONS No Known Immunizations SOCIAL HISTORY Never Assessed REASON FOR VISIT PLAN OF CARE VITAL SIGNS MEDICATIONS Unknown Medications RESULTS No Results PROCEDURES No Known procedures INSTRUCTIONS MEDICATIONS ADMINISTERED No Known Medications MEDICAL (GENERAL) HISTORY Type Description Date Medical History HTN Medical History CAD Medical History Coronary atherosclerosis of unspecified type of vessel, [place] or graft Medical History heart attack Surgical [...]
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
--- OUTSIDE RECORDS SUMMARY | 2020-01-14 19:42 | XMS REPORT ---
Author Author Jose Francisco Boykin Doctor Organization 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 Name Role Phone Migration, Doctor Unavailable Unavailable PROBLEMS Type Condition ICD9-CM Code [id number] Code Onset Dates Condition S tatus SNOMED Code Problem Peyronie's disease 607.85 Active 1 520382 Problem CAD (coronary artery disease) I25.10 Active 85176773 Problem Arteriosclerosis of coronary artery I25.10 Active 996825420218979 Problem Type 2 diabetes mellitus wit hout complication, without long-term current use of insulin E11.9 Active 041415737 Problem Hyperlipemia E78.5 Active 6661854 4 Problem Back pain M54.9 Active 112746198 Problem Essential hypertension I10 Active 27995775 Problem Cataracts, both eyes H26.9 Active 97594189 ALLERGIES No Information ENCOUNTERS Encounter Location Date Diagnosis [facility] [address] [facility] [id number] [address] [place] [address] Dec, Type 2 diabetes mellitus wit hout complication, without long-term current use of insulin E11.9 and Back pain M54.9 [facility] [address] [facility] [id number] [address] [place] [address] Nov, Arteriosclerosis of coronary artery I25.10 [facility] [address] [id number] [address] [place] [address] Oct, Arteriosclerosis of coronary artery I25.10 [facility] [address] [id number] [address] [place] [address] Oct, [facility] [address] [id number] [address] [place] [address] May, [facility] [address] [facility] [id number] [address] [place] [address] May, [facility] [address] [facility] [id number] [address] [place] [address] February, [facility] [address] [id number] [address] [place] [address] Jan, Elevated glucose level R73.0 9 [facility] [address] [id number] [address] [place] [address] Jan, Elevated glucose level R73.0 9 [facility] [address] [id number] [address] [place] [address] Jan, CAD (coronary artery disease ) I25.10 [facility] [address] [id number] [address] [place] [address] Jan, CAD (coronary artery disease ) I25.10 ; Essential hypertension I10 ; Hyperlipemia E78.5 and Back pain M54.9 [facility] [address] [id number] [address] [place] [address] Dec, CAD (coronary artery disease ) I25.10 [facility] [address] [id number] [address] [place] [address] Dec, [facility] [address] [id number] [address] [place] [address] Sep, [facility] [address] [id number] [address] [place] [id number] Jul, Dental examination Z01.20 an d Dental caries K02.9 [facility] [address] [id number] [address] [place] [address] Apr, [facility] [address] [id number] [address] [place] [address] Apr, [facility] [address] [id number] [address] [place] [address] Jan, [facility] [address] [id number] [address] [place] [address] Dec, CAD (coronary artery disease ) I25.10 ; Essential hypertension I10 ; Hyperlipemia E78.5 ; Back pain M54.9 and Coronary artery disease involving [place] coronary artery, angina presence unspecified, unspecified whether [place] or transplanted heart I25.10 [facility] [address] [id number] [address] [place] [address] Dec, [facility] [address] [id number] [address] [place] [address] Dec, [facility] [address] [id number] [address] [place] [address] Dec, [facility] [address] [id number] [address] [place] [address] Dec, [facility] [address] [id number] [address] [place] [address] Dec, [facility] [address] [id number] [address] [place] [address] Nov, [facility] [address] [id number] [address] [place] [address] Aug, [facility] [address] [id number] [address] [place] [address] Jul, Cataracts, both eyes H26.9 ; Essential hypertension I10 ; Back pain M54.9 ; Coronary artery disease involving [place] coronary artery, angina presence unspecified, unspecified whether [place] or transplanted heart I25.10 and Pure hypercholesterolemia E78.00 [facility] [address] [id number] [address] [place] [address] Jul, [facility] [address] [id number] [address] [place] [address] February, Hypertension I10 ; Hyperlipe skip E78.5 ; Coronary artery disease involving [place] coronary artery of [place] heart, angina presence unspecified I25.10 and Obesity (BMI 30.0-34.9) E66.9 [facility] [address] [id number] [address] [place] [address] 08 Nov, 2015 CAD (coronary artery disease ) I25.10 [facility] [address] [facility] [id number] [address] [place] [address] Sep, [facility] [address] [facility] [id number] [place] [address] Sep, Routine general medical exam ination at [facility] V70.0 ; Other nonspecific findings on examination of blood, elevated C-reactive protein (CRP) 790.95 ; Lumbago 724.2 ; Peyronie's disease 607.85 ; Coronary atherosclerosis of unspecified type of vessel, [place] or graft 414.00 and Other and unspecified hyperlipidemia 272.4 [place] [address] [facility] [id number] [place] [address] Aug, CAD (coronary artery disease ) I25.10 ; Hypertension I10 ; Hyperlipemia E78.5 and Back pain M54.9 [place] [address] [address] Jul, CAD (coronary artery disease ) I25.10 [place] [address] [address] Jul, [facility] [address] [place] [id number] [place] [address] Jul, CAD (coronary artery disease ) I25.10 ; Hypertension I10 ; Hyperlipemia E78.5 and Obesity E66.9 [facility] [address] [place] [id number] [address] [place] [address] Jan, [facility] [address] [facility] [id number] [address] [place] [address] Jan, [facility] [address] [place] [id number] [place] [address] Nov, [facility] [address] [place] [id number] [address] [place] [address] Nov, [facility] [address] [address] Nov, [facility] [address] [id number] [address] [place] [address], [place] [address] Nov, [facility] [address] [id number] [address] [place] [address], [place] [address] Oct, [facility] [address] [id number] [address] [place] [address], [place] [address] Oct, [facility] [address] [id number] [address] [place] [address], [place] [address] Oct, [facility] [address] [id number] [address] [place] [address], [place] [address] Oct, [facility] [address] [id number] [address] [place] [address], [place] [address] Oct, [facility] [address] [id number] [address] [place] [address], [place] [address] Oct, [facility] [address] [id number] [address] [place] [address], [place] [address] Oct, [facility] [address] [id number] [address] [place] [address], [place] [address] Oct, [facility] [address] [id number] [address] [place] [address], [place] [address] Oct, [facility] [address] [id number] [address] [place] [address], [place] [address] Oct, [facility] [address] [id number] [address] [place] [address], [place] [address] Oct, [facility] [address] [id number] [address] [place] [address], [place] [address] Oct, [facility] [address] [id number] [address] [place] [address], [place] [address] Sep, [facility] [address] [id number] [address] [place] [address], [place] [address] Sep, [facility] [address] [id number] [address] [place] [address], [place] [address] 10 Aug, 2014 [facility] [address] [id number] [address] [place] [address], [place] [address] Aug, [facility] [address] [id number] [address] [place] [address], [place] [address] 23 Jul, 2014 [facility] [address] [id number] [address] [place] [address], [place] [address] 23 Jul, 2014 [facility] [address] [id number] [address] [place] [address], [place] [address] 20 Jul, 2014 [facility] [address] [id number] [address] [place] [address], [place] [address] 20 Jul, 2014 [facility] [address] [id number] [address] [place] [address], [place] [address] 16 Jul, 2014 [facility] [address] [id number] [address] [place] [address], [place] [address] 16 Jul, 2014 [facility] [address] [id number] [address] [place] [address], [place] [address] 14 Jul, 2014 [facility] [address] [id number] [address] [place] [address], [place] [address] 14 Jul, 2014 [facility] [address] [id number] [address] [place] [address], [place] [address] 13 Jul, 2014 [facility] [address] [id number] [address] [place] [address], [place] [address] 13 Jul, 2014 [facility] [address] [id number] [address] [place] [address], [place] [address] 05 Jun, 2014 [facility] [address] [id number] [address] [place] [address], [place] [address] 05 Jun, 2014 [facility] [address] [id number] [address] [place] [address], [place] [address] 15 May, 2014 [facility] [address] [id number] [address] [place] [address], [place] [address] 15 May, 2014 [facility] [address] [id number] [facility] [place] [address] May, [facility] [address] [id number] [address] [place] [address], [place] [address] May, [facility] [address] [id number] [address] [place] [address], [place] [address] Apr, [facility] [address] [id number] [address] [place] [address], [place] [address] Apr, [facility] [address] [id number] [address] [place] [address], [place] [address] Apr, [facility] [address] [id number] [address] [place] [address], [place] [address] Apr, [facility] [address] [id number] [address] [place] [address], [place] [address] Apr, [facility] [address] [id number] [address] [place] [address], [place] [address] Apr, [facility] [address] [id number] [address] [place] [address], [place] [address] Apr, [facility] [address] [id number] [address] [place] [address], [place] [address] Apr, [facility] [address] [id number] [address] [place] [address], [place] [address] Jan, [facility] [address] [id number] [address] [place] [address], [place] [address] Jan, [facility] [address] [id number] [address] [place] [address], [place] [address] Dec, [facility] [address] [id number] [address] [place] [address], [place] [address] Dec, [facility] [address] [id number] [address] [place] [address], [place] [address] 17 Dec, 2013 [facility] [address] [id number] [address] [place] [address], [place] [address] 17 Dec, 2013 [facility] [address] [id number] [address] [place] [address], [place] [address] 17 Dec, 2013 [facility] [address] [id number] [address] [place] [address], [place] [address] 17 Dec, 2013 [facility] [address] [id number] [address] [place] [address], [place] [address] 11 Dec, 2013 [facility] [address] [id number] [address] [place] [address], [place] [address] Dec, [facility] [address] [id number] [address] [place] [address], [place] [address] Oct, [facility] [address] [id number] [address] [place] [address], [place] [address] Oct, [facility] [address] [id number] [address] [place] [address], [place] [address] 30 Sep, 2013 [facility] [address] [id number] [address] [place] [address], [place] [address] 30 Sep, 2013 [facility] [address] [id number] [address] [place] [address], [place] [address] Sep, [facility] [address] [id number] [address] [place] [address], [place] [address] Sep, [facility] [address] [id number] [address] [place] [address], [place] [address] Sep, [facility] [address] [id number] [address] [place] [address], [place] [address] Sep, [facility] [address] [id number] [address] [place] [address], [place] [address] Sep, [facility] [address] [id number] [address] [place] [address], [place] [address] Sep, [facility] [address] [id number] [address] [place] [address], [place] [address] Sep, [facility] [address] [id number] [address] [place] [address], [place] [address] Aug, [facility] [address] [id number] [address] [place] [address], [place] [address] Aug, [facility] [address] [id number] [address] [place] [address], [place] [address] Jul, [facility] [address] [id number] [address] [place] [address], [place] [address] Jul, [facility] [address] [id number] [address] [place] [address], [place] [address] Jul, [facility] [address] [id number] [address] [place] [address], [place] [address] Jul, [facility] [address] [id number] [address] [place] [address], [place] [address] 15 Jul, 2013 [facility] [address] [id number] [address] [place] [address], [place] [address] 15 Jul, 2013 [facility] [address] [id number] [address] [place] [address], [place] [address] 30 Jun, 2013 [facility] [address] [id number] [address] [place] [address], [place] [address] 18 Jun, 2013 [facility] [address] [id number] [address] [place] [address], [place] [address] 18 Jun, 2013 [facility] [address] [id number] [address] [place] [address], [place] [address] 17 Jun, 2013 [facility] [address] [id number] [address] [place] [address], [place] [address] 03 Jun, 2013 [facility] [address] [id number] [address] [place] [address], [place] [address] May, [facility] [address] [id number] [address] [place] [address], [place] [address] Apr, [facility] [address] [id number] [address] [place] [address], [place] [address] Apr, [facility] [address] [id number] [address] [place] [address], [place] [address] Apr, [facility] [address] [id number] [address] [place] [address], [place] [address] February, [facility] [address] [id number] [address] [place] [address], [place] [address] Jan, [facility] [address] [id number] [address] [place] [address], [place] [address] Dec, [facility] [address] [id number] [address] [place] [address], [place] [address] Dec, [facility] [address] [id number] [address] [place] [address], [place] [address] Dec, [facility] [address] [id number] [address] [place] [address], [place] [address] Nov, [facility] [address] [id number] [address] [place] [address], [place] [address] Nov, [facility] [address] [id number] [address] [place] [address], [place] [address] Oct, [facility] [address] [id number] [address] [place] [address], [place] [address] Oct, [facility] [address] [id number] [address] [place] [address], [place] [address] Oct, [facility] [address] [id number] [address] [place] [address], [place] [address] Oct, [facility] [address] [id number] [address] [place] [address], [place] [address] Oct, [facility] [address] [id number] [address] [place] [address], [place] [address] Oct, [facility] [address] [id number] [address] [place] [address], [place] [address] 16 Oct, 2012 [facility] [address] [id number] [address] [place] [address] Oct, [facility] [address] [id number] [address] [place] [address], [place] [address] Oct, [facility] [address] [id number] [address] [place] [address], [place] [address] Oct, [facility] [address] [id number] [address] [place] [address], [place] [address] Oct, [facility] [address] [id number] [address] [place] [address], [place] [address] Oct, [facility] [address] [id number] [address] [place] [address], [place] [address] Sep, [facility] [address] [id number] [address] [place] [address], [place] [address] Sep, [facility] [address] [id number] [address] [place] [address], [place] [address] Sep, [facility] [address] [id number] [address] [place] [address], [place] [address] Sep, [facility] [address] [id number] [address] [place] [address], [place] [address] Sep, [facility] [address] [id number] [address] [place] [address], [place] [address] Sep, [facility] [address] [id number] [address] [place] [address], [place] [address] Sep, [facility] [address] [id number] [address] [place] [address], [place] [address] Sep, [facility] [address] [id number] [address] [place] [address], [place] [address] Jul, [facility] [address] [id number] [address] [place] [address], [place] [address] Jun, [facility] [address] [id number] [address] [place] [address], [place] [address] Jun, [facility] [address] [id number] [address] [place] [address] Jun, [facility] [address] [id number] [address] [place] [id number] May, [facility] [address] [id number] [address] [place] [id number] May, [facility] [address] [id number] [address] [place] [id number] May, [facility] [address] [id number] [address] [place] [id number] Apr, [facility] [address] [id number] [address] [place] [id number] Apr, [facility] [address] [id number] [address] [place] [id number] Mar, [facility] [address] [id number] [address] [place] [id number] Mar, [facility] [address] [id number] [address] [place] [id number] Mar, [facility] [address] [id number] [address] [place] [id number] Mar, [facility] [address] [id number] [address] [place] [id number] Nov, [facility] [address] [id number] [address] [place] [id number] Nov, IMMUNIZATIONS No Known Immunizations SOCIAL HISTORY Never Assessed REASON FOR VISIT PLAN OF CARE VITAL SIGNS MEDICATIONS Unknown Medications RESULTS No Results PROCEDURES No Known procedures INSTRUCTIONS MEDICATIONS ADMINISTERED No Known Medications MEDICAL (GENERAL) HISTORY Type Description Date Medical History HTN Medical History CAD Medical History Coronary atherosclerosis of unspecified type of vessel, [place] or graft Medical History heart attack Surgical [...]
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
--- OUTSIDE RECORDS SUMMARY | 2020-01-14 19:43 | XMS REPORT ---
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 Name Role Phone Migration, Doctor Unavailable Unavailable PROBLEMS Type Condition ICD9-CM Code OTS21-VN Code Onset Dates Condition S tatus SNOMED Code Problem Peyronie's disease 607.85 Active 1 773377 Problem CAD (coronary artery disease) I25.10 Active 14480841 Problem Arteriosclerosis of coronary artery I25.10 Active 337831423427485 Problem Type 2 diabetes mellitus wit hout complication, without long-term current use of insulin E11.9 Active 060937474 Problem Hyperlipemia E78.5 Active 6891563 4 Problem Back pain M54.9 Active 212355525 Problem Essential hypertension I10 Active 91983732 Problem Cataracts, both eyes H26.9 Active [id number] ALLERGIES No Information ENCOUNTERS Encounter Location Date Diagnosis [facility] [address] [facility] [id number] [address] [place] [address] Dec, Type 2 diabetes mellitus wit hout complication, without long-term current use of insulin E11.9 and Back pain M54.9 [facility] [address] [facility] [id number] [address] [place] [address] Nov, Arteriosclerosis of coronary artery I25.10 [facility] [address] [id number] [address] [place] [address] Oct, Arteriosclerosis of coronary artery I25.10 [facility] [address] [id number] [address] [place] [address] Oct, [facility] [address] [id number] [address] [place] [address] May, [facility] [address] [facility] [id number] [address] [place] [address] May, [facility] [address] [facility] [id number] [address] [place] [address] February, [facility] [address] [id number] [address] [place] [address] Jan, Elevated glucose level R73.0 9 [facility] [address] [id number] [address] [place] [address] Jan, Elevated glucose level R73.0 9 [facility] [address] [id number] [address] [place] [address] Jan, CAD (coronary artery disease ) I25.10 [facility] [address] [id number] [address] [place] [address] Jan, CAD (coronary artery disease ) I25.10 ; Essential hypertension I10 ; Hyperlipemia E78.5 and Back pain M54.9 [facility] [address] [id number] [address] [place] [address] Dec, CAD (coronary artery disease ) I25.10 [facility] [address] [id number] [address] [place] [address] Dec, [facility] [address] [id number] [address] [place] [address] Sep, [facility] [address] [id number] [address] [place] [id number] Jul, Dental examination Z01.20 an d Dental caries K02.9 [facility] [address] [id number] [address] [place] [address] Apr, [facility] [address] [id number] [address] [place] [address] Apr, [facility] [address] [id number] [address] [place] [address] Jan, [facility] [address] [id number] [address] [place] [address] Dec, CAD (coronary artery disease ) I25.10 ; Essential hypertension I10 ; Hyperlipemia E78.5 ; Back pain M54.9 and 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, angina presence unspecified, unspecified whether cowlitz or transplanted heart I25.10 [facility] [address] [id number] [address] [place] [address] Dec, [facility] [address] [id number] [address] [place] [address] Dec, [facility] [address] [id number] [address] [place] [address] Dec, [facility] [address] [id number] [address] [place] [address] Dec, [facility] [address] [id number] [address] [place] [address] Dec, [facility] [address] [id number] [address] [place] [address] Nov, [facility] [address] [id number] [address] [place] [address] Aug, [facility] [address] [id number] [address] [place] [address] Jul, Cataracts, both eyes H26.9 ; Essential hypertension I10 ; Back pain M54.9 ; 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, angina presence unspecified, unspecified whether cowlitz or transplanted heart I25.10 and Pure hypercholesterolemia E78.00 [facility] [address] [id number] [address] [place] [address] Jul, [facility] [address] [id number] [address] [place] [address] February, Hypertension I10 ; Hyperlipe skip E78.5 ; 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, angina presence unspecified I25.10 and Obesity (BMI 30.0-34.9) E66.9 [facility] [address] [id number] [address] [place] [address] 08 Nov, 2015 CAD (coronary artery disease ) I25.10 [facility] [address] [id number] [address] [place] [address] Sep, [facility] [address] [facility] [id number] [place] [address] Sep, Routine general medical exam ination at [facility] facility V70.0 ; Other nonspecific findings on examination of blood, elevated C-reactive protein (CRP) 790.95 ; Lumbago 724.2 ; Peyronie's disease 607.85 ; Coronary atherosclerosis of unspecified type of vessel, cowlitz or graft 414.00 and Other and unspecified hyperlipidemia 272.4 [place] [address] [id number] [place] [address] Aug, CAD (coronary artery disease ) I25.10 ; Hypertension I10 ; Hyperlipemia E78.5 and Back pain M54.9 [place] [address] [address] Jul, CAD (coronary artery disease ) I25.10 [place] [address] [address] Jul, [facility] [address] [place] [id number] [place] [address] Jul, CAD (coronary artery disease ) I25.10 ; Hypertension I10 ; Hyperlipemia E78.5 and Obesity E66.9 [facility] [address] [place] [id number] [address] [place] [address] Jan, [facility] [address] [facility] [id number] [address] [place] [address] Jan, [facility] [address] [place] [id number] [place] [address] Nov, [facility] [address] [place] [id number] [address] [place] [address] Nov, [facility] [address] [address] Nov, [facility] [address] [id number] [address] [place] [address], [place] [address] Nov, [facility] [address] [id number] [address] [place] [address], [place] [address] Oct, [facility] [address] [id number] [address] [place] [address], [place] [address] Oct, [facility] [address] [id number] [address] [place] [address], [place] [address] Oct, [facility] [address] [id number] [address] [place] [address], [place] [address] Oct, [facility] [address] [id number] [address] [place] [address], [place] [address] Oct, [facility] [address] [id number] [address] [place] [address], [place] [address] Oct, [facility] [address] [id number] [address] [place] [address], [place] [address] Oct, [facility] [address] [id number] [address] [place] [address], [place] [address] Oct, [facility] [address] [id number] [address] [place] [address], [place] [address] Oct, [facility] [address] [id number] [address] [place] [address], [place] [address] Oct, [facility] [address] [id number] [address] [place] [address], [place] [address] Oct, [facility] [address] [id number] [address] [place] [address], [place] [address] Oct, [facility] [address] [id number] [address] [place] [address], [place] [address] Sep, [facility] [address] [id number] [address] [place] [address], [place] [address] Sep, [facility] [address] [id number] [address] [place] [address], [place] [address] 10 Aug, 2014 [facility] [address] [id number] [address] [place] [address], [place] [address] Aug, [facility] [address] [id number] [address] [place] [address], [place] [address] 23 Jul, 2014 [facility] [address] [id number] [address] [place] [address], [place] [address] 23 Jul, 2014 [facility] [address] [id number] [address] [place] [address], [place] [address] 20 Jul, 2014 [facility] [address] [id number] [address] [place] [address], [place] [address] 20 Jul, 2014 [facility] [address] [id number] [address] [place] [address], [place] [address] 16 Jul, 2014 [facility] [address] [id number] [address] [place] [address], [place] [address] 16 Jul, 2014 [facility] [address] [id number] [address] [place] [address], [place] [address] 14 Jul, 2014 [facility] [address] [id number] [address] [place] [address], [place] [address] 14 Jul, 2014 [facility] [address] [id number] [address] [place] [address], [place] [address] 13 Jul, 2014 [facility] [address] [id number] [address] [place] [address], [place] [address] 13 Jul, 2014 [facility] [address] [id number] [address] [place] [address], [place] [address] 05 Jun, 2014 [facility] [address] [id number] [address] [place] [address], [place] [address] 05 Jun, 2014 [facility] [address] [id number] [address] [place] [address], [place] [address] 15 May, 2014 [facility] [address] [id number] [address] [place] [address], [place] [address] 15 May, 2014 [facility] [address] [id number] [facility] [address] May, [facility] [address] [id number] [address] [place] [address], [place] [address] May, [facility] [address] [id number] [address] [place] [address], [place] [address] Apr, [facility] [address] [id number] [address] [place] [address], [place] [address] Apr, [facility] [address] [id number] [address] [place] [address], [place] [address] Apr, [facility] [address] [id number] [address] [place] [address], [place] [address] Apr, [facility] [address] [id number] [address] [place] [address], [place] [address] Apr, [facility] [address] [id number] [address] [place] [address], [place] [address] Apr, [facility] [address] [id number] [address] [place] [address], [place] [address] Apr, [facility] [address] [id number] [address] [place] [address], [place] [address] Apr, [facility] [address] [id number] [address] [place] [address], [place] [address] Jan, [facility] [address] [id number] [address] [place] [address], [place] [address] Jan, [facility] [address] [id number] [address] [place] [address], [place] [address] Dec, [facility] [address] [id number] [address] [place] [address], [place] [address] Dec, [facility] [address] [id number] [address] [place] [address], [place] [address] 17 Dec, 2013 [facility] [address] [id number] [address] [place] [address], [place] [address] 17 Dec, 2013 [facility] [address] [id number] [address] [place] [address], [place] [address] 17 Dec, 2013 [facility] [address] [id number] [address] [place] [address], [place] [address] 17 Dec, 2013 [facility] [address] [id number] [address] [place] [address], [place] [address] 11 Dec, 2013 [facility] [address] [id number] [address] [place] [address], [place] [address] Dec, [facility] [address] [id number] [address] [place] [address], [place] [address] Oct, [facility] [address] [id number] [address] [place] [address], [place] [address] Oct, [facility] [address] [id number] [address] [place] [address], [place] [address] 30 Sep, 2013 [facility] [address] [id number] [address] [place] [address], [place] [address] 30 Sep, 2013 [facility] [address] [id number] [address] [place] [address], [place] [address] Sep, [facility] [address] [id number] [address] [place] [address], [place] [address] Sep, [facility] [address] [id number] [address] [place] [address], [place] [address] Sep, [facility] [address] [id number] [address] [place] [address], [place] [address] Sep, [facility] [address] [id number] [address] [place] [address], [place] [address] Sep, [facility] [address] [id number] [address] [place] [address], [place] [address] Sep, [facility] [address] [id number] [address] [place] [address], [place] [address] Sep, [facility] [address] [id number] [address] [place] [address], [place] [address] Aug, [facility] [address] [id number] [address] [place] [address], [place] [address] Aug, [facility] [address] [id number] [address] [place] [address], [place] [address] Jul, [facility] [address] [id number] [address] [place] [address], [place] [address] Jul, [facility] [address] [id number] [address] [place] [address], [place] [address] Jul, [facility] [address] [id number] [address] [place] [address], [place] [address] Jul, [facility] [address] [id number] [address] [place] [address], [place] [address] 15 Jul, 2013 [facility] [address] [id number] [address] [place] [address], [place] [address] 15 Jul, 2013 [facility] [address] [id number] [address] [place] [address], [place] [address] 30 Jun, 2013 [facility] [address] [id number] [address] [place] [address], [place] [address] 18 Jun, 2013 [facility] [address] [id number] [address] [place] [address], [place] [address] 18 Jun, 2013 [facility] [address] [id number] [address] [place] [address], [place] [address] 17 Jun, 2013 [facility] [address] [id number] [address] [place] [address], [place] [address] 03 Jun, 2013 [facility] [address] [id number] [address] [place] [address], [place] [address] May, [facility] [address] [id number] [address] [place] [address], [place] [address] Apr, [facility] [address] [id number] [address] [place] [address], [place] [address] Apr, [facility] [address] [id number] [address] [place] [address], [place] [address] Apr, [facility] [address] [id number] [address] [place] [address], [place] [address] February, [facility] [address] [id number] [address] [place] [address], [place] [address] Jan, [facility] [address] [id number] [address] [place] [address], [place] [address] Dec, [facility] [address] [id number] [address] [place] [address], [place] [address] Dec, [facility] [address] [id number] [address] [place] [address], [place] [address] Dec, [facility] [address] [id number] [address] [place] [address], [place] [address] Nov, [facility] [address] [id number] [address] [place] [address], [place] [address] Nov, [facility] [address] [id number] [address] [place] [address], [place] [address] Oct, [facility] [address] [id number] [address] [place] [address], [place] [address] Oct, [facility] [address] [id number] [address] [place] [address], [place] [address] Oct, [facility] [address] [id number] [address] [place] [address], [place] [address] Oct, [facility] [address] [id number] [address] [place] [address], [place] [address] Oct, [facility] [address] [id number] [address] [place] [address], [place] [address] Oct, [facility] [address] [id number] [address] [place] [address], [place] [address] 16 Oct, 2012 [facility] [address] [id number] [address] [place] [address] Oct, [facility] [address] [id number] [address] [place] [address], [place] [address] Oct, [facility] [address] [id number] [address] [place] [address], [place] [address] Oct, [facility] [address] [id number] [address] [place] [address], [place] [address] Oct, [facility] [address] [id number] [address] [place] [address], [place] [address] Oct, [facility] [address] [id number] [address] [place] [address], [place] [address] Sep, [facility] [address] [id number] [address] [place] [address], [place] [address] Sep, [facility] [address] [id number] [address] [place] [address], [place] [address] Sep, [facility] [address] [id number] [address] [place] [address], [place] [address] Sep, [facility] [address] [id number] [address] [place] [address], [place] [address] Sep, [facility] [address] [id number] [address] [place] [address], [place] [address] Sep, [facility] [address] [id number] [address] [place] [address], [place] [address] Sep, [facility] [address] [id number] [address] [place] [address], [place] [address] Sep, [facility] [address] [id number] [address] [place] [address], [place] [address] Jul, [facility] [address] [id number] [address] [place] [address], [place] [address] Jun, [facility] [address] [id number] [address] [place] [address], [place] [address] Jun, [facility] [address] [id number] [address] [place] [address] Jun, [facility] [address] [id number] [address] [place] [address] May, [facility] [address] [id number] [address] [place] [id number] May, [facility] [address] [id number] [address] [place] [phone] May, [facility] [address] [id number] [address] [place] [phone] Apr, [facility] [address] [id number] [address] [place] [phone] Apr, [facility] [address] [id number] [address] [place] [phone] Mar, [facility] [address] [id number] [address] [place] [id number] Mar, [facility] [address] [id number] [address] [place] [phone] Mar, [facility] [address] [id number] [address] [place] [phone] Mar, [facility] [address] [id number] [address] [place] [phone] Nov, [facility] [address] [id number] [address] [place] [phone] Nov, IMMUNIZATIONS No Known Immunizations SOCIAL HISTORY Never Assessed REASON FOR VISIT [facility] [place] PLAN OF CARE VITAL SIGNS MEDICATIONS Unknown Medications RESULTS No Results PROCEDURES No Known procedures INSTRUCTIONS MEDICATIONS ADMINISTERED No Known Medications MEDICAL (GENERAL) HISTORY Type Description Date Medical History HTN Medical History CAD Medical History Coronary atherosclerosis of unspecified type of vessel, cowlitz or graft Medical History heart attack Surgical [...]
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
--- OUTSIDE RECORDS SUMMARY | 2020-01-14 19:44 | XMS REPORT ---
Author Author Jose Francisco WOLF Organization [facility] Address [address] [place] [address] Care Team Providers Care Marketing Recruiter Name Role Phone FARTUN WOLF Unavailable PROBLEMS Type Condition ICD9-CM Code MDU03-ES Code Onset Dates Condition S tatus SNOMED Code Problem Essential hypertension I10 Active 32822940 Problem Cataracts, both eyes H26.9 Active 02392096 Problem CAD (coronary artery disease) I25.10 Active 68596077 Problem Peyronie's disease 607.85 Active 1 957149 Problem Back pain M54.9 Active 694631930 Problem Hyperlipemia E78.5 Active 2146896 4 ALLERGIES No Information ENCOUNTERS Encounter Location Date Diagnosis [facility] [address] [facility] [id number] [address] [place] [address] May, [facility] [address] [facility] [id number] [address] [place] [address] May, [facility] [address] [facility] [id number] [address] [place] [address] February, [facility] [address] [facility] [id number] [address] [place] [address] Jan, Elevated glucose level R73.0 9 [facility] [address] [facility] [id number] [address] [place] [address] Jan, Elevated glucose level R73.0 9 [facility] [address] [facility] [id number] [address] [place] [address] Jan, CAD (coronary artery disease ) I25.10 [facility] [address] [facility] [id number] [address] [place] [address] Jan, CAD (coronary artery disease ) I25.10 ; Essential hypertension I10 ; Hyperlipemia E78.5 and Back pain M54.9 [facility] [address] [id number] [address] [place] [address] Dec, CAD (coronary artery disease ) I25.10 [facility] [address] [id number] [address] [place] [address] Dec, [facility] [address] [id number] [address] [place] [address] Sep, [facility] [address] [id number] [address] [place] [id number] Jul, Dental examination Z01.20 an d Dental caries K02.9 [facility] [address] [id number] [address] [place] [address] Apr, [facility] [address] [id number] [address] [place] [address] Apr, [facility] [address] [id number] [address] [place] [address] Jan, [facility] [address] [id number] [address] [place] [address] Dec, CAD (coronary artery disease ) I25.10 ; Essential hypertension I10 ; Hyperlipemia E78.5 ; Back pain M54.9 and Coronary artery disease involving chick[place]om[place] ind[place] tribe coronary artery, angina presence unspecified, unspecified whether chick[place]om[place] ind[place] tribe or transplanted heart I25.10 [facility] [address] [id number] [address] [place] [address] Dec, [facility] [address] [id number] [address] [place] [address] Dec, [facility] [address] [id number] [address] [place] [address] Dec, [facility] [address] [id number] [address] [place] [address] Dec, [facility] [address] [id number] [address] [place] [address] Dec, [place] [address] [address] Nov, [place] [address] [address] Aug, [place] [address] [address] Jul, Cataracts, both eyes H26.9 ; Essential hypertension I10 ; Back pain M54.9 ; Coronary artery disease involving [place]om[place] ind[place] tribe coronary artery, angina presence unspecified, unspecified whether [place] tribe or transplanted heart I25.10 and Pure hypercholesterolemia E78.[address] [address] Jul, [place] [address] [address] February, Hypertension I10 ; Hyperlipe skip E78.5 ; Coronary artery disease involving [place]om[place] ind[place] tribe coronary artery of chickahom[place] indian tribe heart, angina presence unspecified I25.10 and Obesity (BMI 30.0-34.9) E66.[address] [address] Nov, CAD (coronary artery disease ) I25.10 [place] [address] [address] Sep, [address] [address] Sep, Routine general medical exam ination at health care facility V70.0 ; Other nonspecific findings on examination of blood, elevated C-reactive protein (CRP) 790.95 ; Lumbago 724.2 ; Peyronie's disease 607.85 ; Coronary atherosclerosis of unspecified type of vessel, chick[place] ind[place] tribe or graft 414.00 and Other and unspecified hyperlipidemia 272.[address] [address] Aug, CAD (coronary artery disease ) I25.10 ; Hypertension I10 ; Hyperlipemia E78.5 and Back pain M54.9 [facility] [address] [id number] [address] [place] [address] Jul, CAD (coronary artery disease ) I25.10 [facility] [address] [id number] [address] [place] [address] Jul, [facility] [address] [id number] [address] [place] [address] Jul, CAD (coronary artery disease ) I25.10 ; Hypertension I10 ; Hyperlipemia E78.5 and Obesity E66.9 [facility] [address] [id number] [address] [place] [address] Jan, [facility] [address] [id number] [address] [place] [address] Jan, [facility] [address] [id number] [address] [place] [address] Nov, [facility] [address] [id number] [address] [place] [address] Nov, [facility] [address] [id number] [address] [place] [address] Nov, [facility] [address] [id number] [address] [place] [address] Nov, [facility] [address] [id number] [address] [place] [address] Oct, [facility] [address] [id number] [address] [place] [address] Oct, [facility] [address] [id number] [address] [place] [address] Oct, [facility] [address] [id number] [address] [place] [address] Oct, [facility] [address] [id number] [address] [place] [address] Oct, [facility] [address] [id number] [address] [place] [address], [place] [address] Oct, [facility] [address] [id number] [address] [place] [address], [place] [address] Oct, [facility] [address] [id number] [address] [place] [address], [place] [address] Oct, [facility] [address] [id number] [address] [place] [address], [place] [address] Oct, [facility] [address] [id number] [address] [place] [address], [place] [address] Oct, [facility] [address] [id number] [address] [place] [address], [place] [address] Oct, [facility] [address] [id number] [address] [place] [address], [place] [address] Oct, [facility] [address] [id number] [address] [place] [address], [place] [address] Sep, [facility] [address] [id number] [address] [place] [address], [place] [address] Sep, [facility] [address] [id number] [address] [place] [address], [place] [address] Aug, [facility] [address] [id number] [address] [place] [address], [place] [address] Aug, [facility] [address] [id number] [address] [place] [address] Jul, [facility] [address] [id number] [address] [place] [address], [place] [address] Jul, [facility] [address] [id number] [address] [place] [address], [place] [address] Jul, [facility] [address] [id number] [address] [place] [address], [place] [address] Jul, [facility] [address] [id number] [address] [place] [address], [place] [address] 16 Jul, 2014 [facility] [address] [id number] [address] [place] [address], [place] [address] 16 Jul, 2014 [facility] [address] [id number] [address] [place] [address], [place] [address] 14 Jul, 2014 [facility] [address] [id number] [address] [place] [address], [place] [address] 14 Jul, 2014 [facility] [address] [id number] [address] [place] [address], [place] [address] Jul, [facility] [address] [id number] [address] [place] [address], [place] [address] Jul, [facility] [address] [id number] [address] [place] [address], [place] [address] Jun, [facility] [address] [id number] [address] [place] [address], [place] [address] Jun, [facility] [address] [id number] [address] [place] [address], [place] [address] May, [facility] [address] [id number] [address] [place] [address], [place] [address] May, [facility] [address] [id number] [address] [place] [address], [place] [address] May, [facility] [address] [id number] [address] [place] [address], [place] [address] May, [facility] [address] [id number] [address] [place] [address], [place] [address] Apr, [facility] [address] [id number] [address] [place] [address], [place] [address] Apr, [facility] [address] [id number] [address] [place] [address], [place] [address] Apr, [facility] [address] [id number] [address] [place] [address], [place] [address] Apr, [facility] [address] [id number] [facility] [place] [address] Apr, [facility] [address] [id number] [address] [place] [address], [place] [address] Apr, [facility] [address] [id number] [address] [place] [address], [place] [address] Apr, [facility] [address] [id number] [address] [place] [address], [place] [address] Apr, [facility] [address] [id number] [address] [place] [address], [place] [address] Jan, [facility] [address] [id number] [address] [place] [address], [place] [address] Jan, [facility] [address] [id number] [address] [place] [address], [place] [address] Dec, [facility] [address] [id number] [address] [place] [address], [place] [address] Dec, [facility] [address] [id number] [address] [place] [address], [place] [address] Dec, [facility] [address] [id number] [address] [place] [address], [place] [address] Dec, [facility] [address] [id number] [address] [place] [address], [place] [address] 17 Dec, 2013 [facility] [address] [id number] [address] [place] [address], [place] [address] Dec, [facility] [address] [id number] [address] [place] [address], [place] [address] Dec, [facility] [address] [id number] [address] [place] [address], [place] [address] Dec, [facility] [address] [id number] [address] [place] [address], [place] [address] Oct, [facility] [address] [id number] [address] [place] [address], [place] [address] Oct, [facility] [address] [id number] [address] [place] [address], [place] [address] Sep, [facility] [address] [id number] [address] [place] [address], [place] [address] Sep, [facility] [address] [id number] [address] [place] [address], [place] [address] Sep, [facility] [address] [id number] [address] [place] [address], [place] [address] Sep, [facility] [address] [id number] [address] [place] [address], [place] [address] Sep, [facility] [address] [id number] [address] [place] [address], [place] [address] Sep, [facility] [address] [id number] [address] [place] [address], [place] [address] Sep, [facility] [address] [id number] [address] [place] [address], [place] [address] Sep, [facility] [address] [id number] [address] [place] [address], [place] [address] Sep, [facility] [address] [id number] [address] [place] [address], [place] [address] Aug, [facility] [address] [id number] [address] [place] [address], [place] [address] Aug, [facility] [address] [id number] [address] [place] [address], [place] [address] Jul, [facility] [address] [id number] [address] [place] [address], [place] [address] Jul, [facility] [address] [id number] [address] [place] [address], [place] [address] Jul, [facility] [address] [id number] [address] [place] [address], [place] [address] Jul, [facility] [address] [id number] [address] [place] [address], [place] [address] 15 Jul, 2013 [facility] [address] [id number] [address] [place] [address], [place] [address] 15 Jul, 2013 [facility] [address] [id number] [address] [place] [address], [place] [address] 30 Jun, 2013 [facility] [address] [id number] [address] [place] [address], [place] [address] 18 Jun, 2013 [facility] [address] [id number] [address] [place] [address], [place] [address] 18 Jun, 2013 [facility] [address] [id number] [address] [place] [address], [place] [address] 17 Jun, 2013 [facility] [address] [id number] [address] [place] [address], [place] [address] 03 Jun, 2013 [facility] [address] [id number] [address] [place] [address], [place] [address] May, [facility] [address] [id number] [address] [place] [address], [place] [address] Apr, [facility] [address] [id number] [address] [place] [address], [place] [address] Apr, [facility] [address] [id number] [address] [place] [address], [place] [address] Apr, [facility] [address] [id number] [address] [place] [address], [place] [address] February, [facility] [address] [id number] [address] [place] [address], [place] [address] Jan, [facility] [address] [id number] [address] [place] [address], [place] [address] Dec, [facility] [address] [id number] [address] [place] [address], [place] [address] 14 Dec, 2012 [facility] [address] [id number] [address] [place] [address], [place] [address] Dec, [facility] [address] [id number] [address] [place] [address], [place] [address] Nov, [facility] [address] [id number] [address] [place] [address], [place] [address] Nov, [facility] [address] [id number] [address] [place] [address], [place] [address] Oct, [facility] [address] [id number] [address] [place] [address], [place] [address] Oct, [facility] [address] [id number] [address] [place] [address], [place] [address] Oct, [facility] [address] [id number] [address] [place] [address], [place] [address] Oct, [facility] [address] [id number] [address] [place] [address], [place] [address] Oct, [facility] [address] [id number] [address] [place] [address], [place] [address] Oct, [facility] [address] [id number] [address] [place] [address], [place] [address] Oct, [facility] [address] [id number] [address] [place] [address], [place] [address] Oct, [facility] [address] [id number] [address] [place] [address], [place] [address] Oct, [facility] [address] [id number] [address] [place] [address], [place] [address] Oct, [facility] [address] [id number] [address] [place] [address], [place] [address] Oct, [facility] [address] [id number] [address] [place] [address], [place] [address] Oct, [facility] [address] [id number] [address] [place] [address], [place] [address] Sep, [facility] [address] [id number] [address] [place] [address], [place] [address] Sep, [facility] [address] [id number] [address] [place] [address], [place] [address] Sep, [facility] [address] [id number] [address] [place] [address], [place] [address] Sep, [facility] [address] [id number] [address] [place] [address], [place] [address] Sep, [facility] [address] [id number] [address] [place] [address], [place] [address] Sep, [facility] [address] [id number] [address] [place] [address], [place] [address] Sep, [facility] [address] [id number] [address] [place] [address], [place] [address] Sep, [facility] [address] [id number] [address] [place] [address], [place] [address] Jul, [facility] [address] [id number] [address] [place] [address], [place] [address] Jun, [facility] [address] [id number] [address] [place] [address], [place] [address] Jun, [facility] [address] [id number] [address] [place] [address], [place] [address] Jun, [facility] [address] [id number] [address] [place] [address], [place] [address] May, [facility] [address] [id number] [address] [place] [address], [place] [address] May, [facility] [address] [id number] [address] [place] [address], [place] [address] May, [facility] [address] [id number] [address] [place] [address], [place] [address] Apr, [facility] [address] [id number] [address] [place] [address], [place] [address] Apr, [facility] [address] [facility] [id number] [address] [place] [address] Mar, [facility] [address] [facility] [id number] [address] [place] [id number] Mar, [facility] [address] [facility] [id number] [address] [place] [phone] Mar, [facility] [address] [facility] [id number] [address] [place] [id number] Mar, [facility] [address] [facility] [id number] [address] [place] [id number] Nov, [facility] [address] [facility] [id number] [address] [place] [id number] Nov, IMMUNIZATIONS No Known Immunizations SOCIAL HISTORY Never Assessed REASON FOR VISIT effient PLAN OF CARE VITAL SIGNS MEDICATIONS Unknown Medications RESULTS No Results PROCEDURES No Known procedures INSTRUCTIONS MEDICATIONS ADMINISTERED No Known Medications MEDICAL (GENERAL) HISTORY Type Description Date Medical History HTN Medical History CAD Medical History Coronary atherosclerosis of unspecified type of vessel, [place] or graft Medical History heart attack Surgical [...]
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
--- OUTSIDE RECORDS SUMMARY | 2020-01-14 19:45 | XMS REPORT ---
Author Author Jose Francisco GONZALES Organization [employer] Address Unknown Phone Unavailable Care Team Providers Care Bulldozer/Loader/Compactor/Scraper Name Role Phone CHRISTIAN BRYN CP Unavailable Allergies No Known Allergies Problems Problem Type Condition Code Onset Dates Condition Statu s Problem Major depressive disorder, recurrent episode, moderate 296.32 Active Assessment CAD (coronary artery disease) I25.10 Active Problem Anxiety state, unspecified 300.00 A ctive Problem Other nonspecific findings o n examination of blood, elevated C-reactive protein (CRP) 790.95 Active Problem Encounter for long-term (current) use of other medicat ions V58.69 Active Problem Insomnia, unspecified 780.52 Active Problem Coronary atherosclerosis of unspecified type of vessel, [place] or graft 414.00 Active Problem CAD (coronary artery disease) I25.10 Active Problem Hypertension I10 Active Problem Elevated blood pressure reading without diagnosi s of hypertension 796.2 Active Problem Other specified examination V72.85 Active Problem Back pain M54.9 Active Problem Other abnormal glucose 790.29 Activ e Problem Chest pain, unspecified 786.50 Acti ve Problem Routine general medical examination at [facility] V70.0 Active Problem Hyperlipemia E78.5 Active Problem Peyronie's disease 607.85 Active Problem Disturbance of salivary secretion 527.7 Active Problem Open wound of knee, leg (exc ept thigh), and ankle, without mention of complication 891.0 Active Problem Other malaise and fatigue 780.79 Ac tive Problem Essential hypertension, benign 401.1 Active Problem Unspecified essential hypertension 401.9 Active Problem Other and unspecified hyperlipidemia 272.4 Active Problem Lumbago 724.2 Active Problem Sciatica 724.3 Active Medications Medication Code System Code Instructions Start Date End Date Status Dosage Effient [facility] [address]-35 10 MG by Oral route once daily Oct 18 201 5 1 tablet Results No Known Results Summary Purpose [employer] Submission
--- OUTSIDE RECORDS SUMMARY | 2020-01-14 19:45 | XMS REPORT ---
Author Author Jose Francisco GONZALES Organization [employer] Address Unknown Phone Unavailable Care Team Providers Care Bowling Floor Desk Clerk Name Role Phone BRYN GONZALES CP Unavailable Allergies No Known Allergies Problems Problem Type Condition Code Onset Dates Condition Statu s Problem Encounter for long-term (current) use of other medicat ions V58.69 Active Problem Insomnia, unspecified 780.52 Active Problem Coronary atherosclerosis of unspecified type of vessel, [place] or graft 414.00 Active Problem CAD (coronary artery disease) I25.10 Active Problem Elevated blood pressure reading without diagnosi s of hypertension 796.2 Active Problem Hypertension I10 Active Problem Other specified examination V72.85 Active Problem Other abnormal glucose 790.29 Activ e Problem Back pain M54.9 Active Problem Chest pain, unspecified 786.50 Acti ve Problem Routine general medical examination at [facility] V70.0 Active Problem Hyperlipemia E78.5 Active [...] 272.4 Active Problem Lumbago 724.2 Active Problem Major depressive disorder, recurrent episode, moderate 296.32 Active Problem Other nonspecific findings o n examination of blood, elevated C-reactive protein (CRP) 790.95 Active Problem Sciatica 724.3 Active Problem Anxiety state, unspecified 300.00 A ctive Medications Medication Code System Code Instructions Start Date End Date Status Dosage Effient [facility] [address]-78 10 MG by Oral route once daily Oct 18 201 5 1 tablet Results No Known Results Summary Purpose [employer] Submission
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
--- OUTSIDE RECORDS SUMMARY | 2020-01-14 19:45 | XMS REPORT ---
Author Author Jose Francisco WOLF Organization [facility] Address [address] [place] [address] Care Team Providers Care Metal Checker Name Role Phone FARTUN WOLF Unavailable PROBLEMS Type Condition ICD9-CM Code VUT63-VS Code Onset Dates Condition S tatus SNOMED Code Problem Essential hypertension I10 Active 19364992 Problem Cataracts, both eyes H26.9 Active 38507526 Problem CAD (coronary artery disease) I25.10 Active 98984431 Problem Peyronie's disease 607.85 Active 1 667889 Problem Back pain M54.9 Active 979637816 Problem Hyperlipemia E78.5 Active 8297651 4 ALLERGIES No Information ENCOUNTERS Encounter Location Date Diagnosis [place] [address] [address] [facility] [id number] [address] [place] [address] February, [place] [address] [facility] [id number] [address] [place] [address] Jan, Elevated glucose level R73.0 9 [place] [address] [facility] [id number] [address] [place] [address] Jan, Elevated glucose level R73.0 9 [place] [address] [address] [facility] [id number] [address] [place] [address] Jan, CAD (coronary artery disease ) I25.10 [place] [address] [facility] [id number] [address] [place] [address] Jan, CAD (coronary artery disease ) I25.10 ; Essential hypertension I10 ; Hyperlipemia E78.5 and Back pain M54.9 [place] [facility] [id number] [address] [place] [address] Dec, CAD (coronary artery disease ) I25.10 [place] [address] [address] [facility] [id number] [address] [place] [address] Dec, [facility] [address] [id number] [address] [place] [address] Sep, [facility] [address] [id number] [address] [place] [id number] Jul, Dental examination Z01.20 an d Dental caries K02.9 [facility] [address] [id number] [address] [place] [address] Apr, [facility] [address] [id number] [address] [place] [address] Apr, [facility] [address] [id number] [address] [place] [address] Jan, [facility] [address] [id number] [address] [place] [address] Dec, CAD (coronary artery disease ) I25.10 ; Essential hypertension I10 ; Hyperlipemia E78.5 ; Back pain M54.9 and Coronary artery disease involving [place] coronary artery, angina presence unspecified, unspecified whether [place] or transplanted heart I25.10 [facility] [address] [id number] [address] [place] [address] Dec, [facility] [address] [id number] [address] [place] [address] Dec, [facility] [address] [id number] [address] [place] [address] Dec, [facility] [address] [id number] [address] [place] [address] Dec, [facility] [address] [id number] [address] [place] [address] Dec, [facility] [address] [id number] [address] [place] [address] Nov, [facility] [address] [id number] [address] [place] [address] Aug, [place] [address] [address] Jul, Cataracts, both eyes H26.9 ; Essential hypertension I10 ; Back pain M54.9 ; Coronary artery disease involving [place] coronary artery, angina presence unspecified, unspecified whether [place] or transplanted heart I25.10 and Pure hypercholesterolemia E78.[address] [address] Jul, [address] [address] February, Hypertension I10 ; Hyperlipe skip E78.5 ; Coronary artery disease involving [place] coronary artery of [place] heart, angina presence unspecified I25.10 and Obesity (BMI 30.0-34.9) E66.[address] [address] Nov, CAD (coronary artery disease ) I25.[address] [address] Sep, [address] [address] Sep, Routine general medical exam ination at health care facility V70.0 ; Other nonspecific findings on examination of blood, elevated C-reactive protein (CRP) 790.95 ; Lumbago 724.2 ; Peyronie's disease 607.85 ; Coronary atherosclerosis of unspecified type of vessel, [place] or graft 414.00 and Other and unspecified hyperlipidemia 272.[address] [address] Aug, CAD (coronary artery disease ) I25.10 ; Hypertension I10 ; Hyperlipemia E78.5 and Back pain M54.[address] [address] Jul, CAD (coronary artery disease ) I25.10 [facility] [address] [id number] [address] [place] [address] Jul, [facility] [address] [id number] [address] [place] [address] Jul, CAD (coronary artery disease ) I25.10 ; Hypertension I10 ; Hyperlipemia E78.5 and Obesity E66.9 [facility] [address] [id number] [address] [place] [address] Jan, [facility] [address] [id number] [address] [place] [address] Jan, [facility] [address] [id number] [address] [place] [address] Nov, [facility] [address] [id number] [address] [place] [address] Nov, [facility] [address] [id number] [address] [place] [address] Nov, [facility] [address] [id number] [address] [place] [address] Nov, [facility] [address] [id number] [address] [place] [address] Oct, [facility] [address] [id number] [address] [place] [address] Oct, [facility] [address] [id number] [address] [place] [address] Oct, [facility] [address] [id number] [address] [place] [address] Oct, [facility] [address] [id number] [address] [place] [address] Oct, [facility] [address] [id number] [address] [place] [address] Oct, [facility] [address] [id number] [address] [place] [address] Oct, [facility] [address] [id number] [address] [place] [address], [place] [address] Oct, [facility] [address] [id number] [address] [place] [address], [place] [address] Oct, [facility] [address] [id number] [address] [place] [address], [place] [address] Oct, [facility] [address] [id number] [address] [place] [address], [place] [address] Oct, [facility] [address] [id number] [address] [place] [address], [place] [address] Oct, [facility] [address] [id number] [address] [place] [address], [place] [address] Sep, [facility] [address] [id number] [address] [place] [address], [place] [address] Sep, [facility] [address] [id number] [address] [place] [address], [place] [address] Aug, [facility] [address] [id number] [address] [place] [address], [place] [address] Aug, [facility] [address] [id number] [address] [place] [address], [place] [address] Jul, [facility] [address] [id number] [address] [place] [address] Jul, [facility] [address] [id number] [address] [place] [address] Jul, [facility] [address] [id number] [address] [place] [address], [place] [address] Jul, [facility] [address] [id number] [address] [place] [address], [place] [address] Jul, [facility] [address] [id number] [address] [place] [address] Jul, [facility] [address] [id number] [address] [place] [address], [place] [address] 14 Jul, 2014 [facility] [address] [id number] [address] [place] [address], [place] [address] 14 Jul, 2014 [facility] [address] [id number] [address] [place] [address], [place] [address] Jul, [facility] [address] [id number] [address] [place] [address], [place] [address] Jul, [facility] [address] [id number] [address] [place] [address], [place] [address] 05 Jun, 2014 [facility] [address] [id number] [address] [place] [address], [place] [address] Jun, [facility] [address] [id number] [address] [place] [address], [place] [address] May, [facility] [address] [id number] [address] [place] [address], [place] [address] May, [facility] [address] [id number] [address] [place] [address], [place] [address] May, [facility] [address] [id number] [address] [place] [address], [place] [address] May, [facility] [address] [id number] [address] [place] [address], [place] [address] Apr, [facility] [address] [id number] [address] [place] [address], [place] [address] Apr, [facility] [address] [id number] [address] [place] [address], [place] [address] Apr, [facility] [address] [id number] [address] [place] [address], [place] [address] Apr, [facility] [address] [id number] [address] [place] [address], [place] [address] Apr, [facility] [address] [id number] [address] [place] [address], [place] [address] Apr, [facility] [address] [id number] [address] [place] [address], [place] [address] Apr, [facility] [address] [id number] [address] [place] [address], [place] [address] Apr, [facility] [address] [id number] [address] [place] [address], [place] [address] 18 Jan, 2014 [facility] [address] [id number] [address] [place] [address], [place] [address] Jan, [facility] [address] [id number] [address] [place] [address], [place] [address] Dec, [facility] [address] [id number] [address] [place] [address], [place] [address] Dec, [facility] [address] [id number] [address] [place] [address], [place] [address] 17 Dec, 2013 [facility] [address] [id number] [address] [place] [address], [place] [address] Dec, [facility] [address] [id number] [address] [place] [address], [place] [address] Dec, [facility] [address] [id number] [address] [place] [address], [place] [address] 17 Dec, 2013 [facility] [address] [id number] [address] [place] [address], [place] [address] Dec, [facility] [address] [id number] [address] [place] [address], [place] [address] Dec, [facility] [address] [id number] [address] [place] [address], [place] [address] Oct, [facility] [address] [id number] [address] [place] [address], [place] [address] Oct, [facility] [address] [id number] [address] [place] [address], [place] [address] 30 Sep, 2013 [facility] [address] [id number] [address] [place] [address], [place] [address] 30 Sep, 2013 [facility] [address] [id number] [address] [place] [address], [place] [address] Sep, [facility] [address] [id number] [address] [place] [address], [place] [address] Sep, [facility] [address] [id number] [address] [place] [address], [place] [address] Sep, [facility] [address] [id number] [address] [place] [address] Sep, [facility] [address] [id number] [address] [place] [address], [place] [address] Sep, [facility] [address] [id number] [address] [place] [address], [place] [address] Sep, [facility] [address] [id number] [address] [place] [address], [place] [address] Sep, [facility] [address] [id number] [address] [place] [address], [place] [address] Aug, [facility] [address] [id number] [address] [place] [address], [place] [address] Aug, [facility] [address] [id number] [address] [place] [address], [place] [address] 31 Jul, 2013 [facility] [address] [id number] [address] [place] [address] 31 Jul, 2013 [facility] [address] [id number] [address] [place] [address] 22 Jul, 2013 [facility] [address] [id number] [address] [place] [address], [place] [address] 22 Jul, 2013 [facility] [address] [id number] [address] [place] [address] 15 Jul, 2013 [facility] [address] [id number] [address] [place] [address], [place] [address] 15 Jul, 2013 [facility] [address] [id number] [address] [place] [address], [place] [address] 30 Jun, 2013 [facility] [address] [id number] [address] [place] [address], [place] [address] 18 Jun, 2013 [facility] [address] [id number] [address] [place] [address], [place] [address] 18 Jun, 2013 [facility] [address] [id number] [address] [place] [address], [place] [address] 17 Jun, 2013 [facility] [address] [id number] [address] [place] [address], [place] [address] 03 Jun, 2013 [facility] [address] [id number] [address] [place] [address], [place] [address] May, [facility] [address] [id number] [address] [place] [address], [place] [address] Apr, [facility] [address] [id number] [address] [place] [address], [place] [address] Apr, [facility] [address] [id number] [address] [place] [address], [place] [address] Apr, [facility] [address] [id number] [address] [place] [address], [place] [address] February, [facility] [address] [id number] [address] [place] [address], [place] [address] Jan, [facility] [address] [id number] [address] [place] [address], [place] [address] 15 Dec, 2012 [facility] [address] [id number] [address] [place] [address], [place] [address] 14 Dec, 2012 [facility] [address] [id number] [address] [place] [address], [place] [address] Dec, [facility] [address] [id number] [address] [place] [address], [place] [address] 28 Nov, 2012 [facility] [address] [id number] [address] [place] [address], [place] [address] Nov, [facility] [address] [id number] [address] [place] [address], [place] [address] Oct, [facility] [address] [id number] [address] [place] [address], [place] [address] Oct, [facility] [address] [id number] [address] [place] [address], [place] [address] Oct, [facility] [address] [id number] [address] [place] [address], [place] [address] Oct, [facility] [address] [id number] [address] [place] [address], [place] [address] Oct, [facility] [address] [id number] [address] [place] [address], [place] [address] Oct, [facility] [address] [id number] [address] [place] [address], [place] [address] Oct, [facility] [address] [id number] [address] [place] [address], [place] [address] Oct, [facility] [address] [id number] [address] [place] [address], [place] [address] Oct, [facility] [address] [id number] [address] [place] [address], [place] [address] Oct, [facility] [address] [id number] [address] [place] [address], [place] [address] Oct, [facility] [address] [id number] [address] [place] [address], [place] [address] Oct, [facility] [address] [id number] [address] [place] [address], [place] [address] Sep, [facility] [address] [id number] [address] [place] [address], [place] [address] Sep, [facility] [address] [id number] [address] [place] [address], [place] [address] Sep, [facility] [address] [id number] [address] [place] [address], [place] [address] Sep, [facility] [address] [id number] [address] [place] [address], [place] [address] Sep, [facility] [address] [id number] [address] [place] [address], [place] [address] Sep, [facility] [address] [id number] [address] [place] [address], [place] [address] Sep, [facility] [address] [id number] [address] [place] [address], [place] [address] Sep, [facility] [address] [id number] [address] [place] [address], [place] [address] Jul, [facility] [address] [id number] [address] [place] [address], [place] [address] Jun, [facility] [address] [id number] [address] [place] [address], [place] [address] Jun, [facility] [address] [id number] [address] [place] [address], [place] [address] Jun, [facility] [address] [id number] [address] [place] [address], [place] [address] May, [facility] [address] [id number] [address] [place] [address], [place] [address] May, [facility] [address] [id number] [address] [place] [address], [place] [address] May, [facility] [address] [id number] [address] [place] [address], [place] [address] Apr, [facility] [address] [id number] [address] [place] [address], [place] [address] Apr, [facility] [address] [id number] [address] [place] [address], [place] [address] Mar, [facility] [address] [id number] [address] [place] [address], [place] [address] Mar, [facility] [address] [facility] [id number] [address] [place] [address] Mar, [facility] [address] [facility] [id number] [address] [place] [address] Mar, [facility] [address] [facility] [id number] [address] [place] [address] Nov, [facility] [address] [facility] [id number] [address] [place] [address] Nov, IMMUNIZATIONS No Known Immunizations SOCIAL HISTORY Never Assessed REASON FOR VISIT PALS PLAN OF CARE VITAL SIGNS MEDICATIONS Medication Instructions Dosage Frequency Start Date End Date Duration S tatus Effient 10 mg Orally Once a day 1 tablet 24h Oct, Active RESULTS No Results PROCEDURES No Known procedures INSTRUCTIONS MEDICATIONS ADMINISTERED No Known Medications MEDICAL (GENERAL) HISTORY Type Description Date Medical History HTN Medical History CAD Medical History Coronary atherosclerosis of unspecified type of vessel, [place] or graft Medical History heart attack Surgical [...]
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
--- OUTSIDE RECORDS SUMMARY | 2020-01-14 19:45 | XMS REPORT ---
Author Author Jose Francisco OROZCO [facility] eClinical[employer] Address Unknown Phone Unavailable Care Team Providers Care Sports Medicine Trainer Name Role Phone JAC OROZCO Unavailable Allergies No Known Allergies Problems Problem Type Condition Code Onset Dates Condition Statu s Problem Cataracts, both eyes H26.9 Active Problem Coronary artery disease invo lving [place] coronary artery, angina presence unspecified, unspecified whether [place] or transplanted heart I25.10 Active Problem Essential hypertension I10 Activ e Problem Hyperlipemia E78.5 Active Problem Peyronie's disease 607.85 Active Problem Back pain M54.9 Active Problem CAD (coronary artery disease) I25.10 Active Medications Medication Code System Code Instructions Start Date End Date Status Dosage Gentamicin Sulfate [facility] [address]-95 0.3 % Ophthalmic qid Jul 26 16 1 application to affected eye PrednisoLONE Acetate [facility] [address]-48 1 % Ophthalmic Four times a day Jul 26, 2016 drops into affected eye Results No Known Results Summary Purpose eClinicalWorks Submission
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
--- OUTSIDE RECORDS SUMMARY | 2020-01-14 19:45 | XMS REPORT ---
Author Author Jose Francisco GONZALES Organization [employer] Address Unknown Phone Unavailable Care Team Providers Care Nurse Case Management Name Role Phone BRYN GONZALES CP Unavailable Allergies No Known Allergies Problems Problem Type Condition Code Onset Dates Condition Statu s Problem Cataracts, both eyes H26.9 Active Problem Coronary artery disease invo lving [place] coronary artery, angina presence unspecified, unspecified whether [place] or transplanted heart I25.10 Active Problem Essential hypertension I10 Activ e Problem Hyperlipemia E78.5 Active Problem Peyronie's disease 607.85 Active Problem Back pain M54.9 Active Problem CAD (coronary artery disease) I25.10 Active Medications No Known Medications Results No Known Results Summary Purpose [employer] Submission
--- OUTSIDE RECORDS SUMMARY | 2020-01-14 19:45 | XMS REPORT ---
Author Author Jose Francisco GONZALES Organization [employer] Address Unknown Phone Unavailable Care Team Providers Care Product Distribution Specialist Name Role Phone BRYN GONZALES CP Unavailable Allergies No Known Allergies Problems Problem Type Condition Code Onset Dates Condition Statu s Problem Anxiety state, unspecified 300.00 A ctive Problem Coronary atherosclerosis of unspecified type of vessel, [place] or graft 414.00 Active Problem Encounter for long-term (current) use of other medicat ions V58.69 Active Problem Hypertension I10 Active Problem Other specified examination V72.85 Active Problem Hyperlipemia E78.5 Active Problem Other abnormal glucose 790.29 Activ e Problem Other nonspecific findings o n examination of blood, elevated C-reactive protein (CRP) 790.95 Active Problem CAD (coronary artery disease) I25.10 Active Problem Routine general medical examination at [facility] V70.0 Active Problem Insomnia, unspecified 780.52 Active Problem Peyronie's disease 607.85 Active Problem Chest pain, unspecified 786.50 Acti ve Problem Essential hypertension, benign 401.1 Active Problem Disturbance of salivary secretion 527.7 Active Problem Elevated blood pressure reading without diagnosi s of hypertension 796.2 Active Problem Other malaise and fatigue 780.79 Ac tive Problem Sciatica 724.3 Active Problem Unspecified essential hypertension 401.9 Active Problem Open wound of knee, leg (exc ept thigh), and ankle, without mention of complication 891.0 Active Problem Other and unspecified hyperlipidemia 272.4 Active Assessment CAD (coronary artery disease) I25.10 Active Problem Lumbago 724.2 Active Problem Major depressive disorder, recurrent episode, moderate 296.32 Active Medications No Known Medications Procedures Procedure Coding System Code Date COMPLETE CBC W/AUTO DIFF WBC CPT-4 56510 Aug 20, 2015 C-REACTIVE PROTEIN CPT-4 28943 Aug 20, 2015 ASSAY THYROID STIM HORMONE CPT-4 42894 Jul 242014 VENIPUNCT, ROUTINE* CPT-4 00250 Aug 20, 2015 LIPID PANEL CPT-4 14751 Aug 20, 2015 ASSAY OF PSA, TOTAL CPT-4 20091 Aug 20, 2015 C-REACTIVE PROTEIN, HS CPT-4 38300 Aug 20, 015 COMPREHEN METABOLIC PANEL CPT-4 19859 Jul Results Name Result Date Reference Range Unit Abnormali ty Flag ROUTINE VENIPUNCTURE Summary Purpose [employer] Submission
--- OUTSIDE RECORDS SUMMARY | 2020-01-14 19:45 | XMS REPORT ---
Author Author Jose Francisco OROZCO Organization [facility] Address [address] [place] [address] Care Team Providers Care Fast Food Services Manager Name Role Phone JAC OROZCO Unavailable PROBLEMS Type Condition ICD9-CM Code [id number] Code Onset Dates Condition S tatus SNOMED Code Problem Peyronie's disease 607.85 Active 1 719496 Problem Essential hypertension I10 Active 89931185 Problem Coronary artery disease invo lving [place] coronary artery, angina presence unspecified, unspecified whether [place] or transplanted heart I25.10 Active 130951442239604 Problem Hyperlipemia E78.5 Active 1448425 4 Problem CAD (coronary artery disease) I25.10 Active 58654210 Problem Cataracts, both eyes H26.9 Active 85259685 Problem Back pain M54.9 Active 785595691 ALLERGIES No Information SOCIAL HISTORY Never Assessed PLAN OF CARE VITAL SIGNS MEDICATIONS No Known Medications RESULTS No Results PROCEDURES No Known procedures IMMUNIZATIONS No Known Immunizations MEDICAL (GENERAL) HISTORY Type Description Date Medical History HTN Medical History CAD Medical History Coronary atherosclerosis of unspecified type of vessel, [place] or graft Medical History heart attack Surgical [...]
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
--- OUTSIDE RECORDS SUMMARY | 2020-01-14 19:46 | XMS REPORT ---
Author Author Jose Francisco HUTCHISON Organization [employer] Address Unknown Phone Unavailable Care Team Providers Care Plate Stacker Name Role Phone BRYSON HUTCHISON CP Unavailable Allergies No Known Allergies Problems Problem Type Condition Code Onset Dates Condition Statu s Problem Anxiety state, unspecified 300.00 A ctive Problem Coronary atherosclerosis of unspecified type of vessel, [place] or graft 414.00 Active Problem Encounter for [...] Active Problem Routine general medical examination at [facility] V70.0 Active Problem Insomnia, unspecified 780.52 Active [...] moderate 296.32 Active Medications No Known Medications Results No Known Results Summary Purpose [employer] Submission
--- OUTSIDE RECORDS SUMMARY | 2020-01-14 19:46 | XMS REPORT ---
Author Author Jose Francisco OROZCO [facility] [employer] Address Unknown Phone Unavailable Care Team Providers Care Drafter [employer]otive Design Layout Name Role Phone JAC OROZCO CP Unavailable Allergies, Adverse Reactions, Alerts Substance Reaction Event Type N.K.D.A. Info Not Available Non Drug Allergy Problems Problem Type Condition Code Onset Dates Condition Statu s Assessment Back pain M54.9 Active Assessment Hyperlipemia E78.5 Active Assessment Hypertension I10 Active Problem Major depressive disorder, recurrent episode, [...] Coronary atherosclerosis of unspecified type of vessel, [place] or graft 414.00 Active Problem CAD (coronary artery disease) I25.10 Active Problem Hypertension I10 Active Problem Elevated blood pressure reading without diagnosi s of hypertension 796.2 Active Problem Other specified examination V72.85 Active Problem Back pain M54.9 Active Problem Other abnormal glucose 790.29 Activ e Problem Chest pain, unspecified 786.50 Acti ve Problem Routine general medical examination at [facility] V70.0 Active Problem Hyperlipemia E78.5 Active Problem [...] Start Date End Date Status Dosage Effient [facility] [address]-12 10 MG Nov 13, 2014 take 1 tablet (10 mg) by oral route once daily Hydrocodone-Acetaminophen [facility] [address]-14 5-325 MG 3 ti mes a day prn Aug 04, 2014 take 1 tablet by ora l route every 4-6 hours as needed for pain PRN Nitrostat [facility] [address]-41 0.4 MG Jun 26, 2014 1 tablet by Sublingual route 3 times per day PRN chest pain; may repeat q 5 min x 2 Procedures Procedure Coding System Code Date Office Visit, Est Pt., Level 4 CPT-4 33841 N 2014 Vital Signs Date/Time: Sep 03, 2015 Temperature 98.6 F Weight 245 lbs Height 71 in BMI 34.17 Index Blood Pressure Diastolic 88 mmHg Blood Pressure Systolic 168 mmHg Cardiac Monitoring Heart Rate 70 bpm Results No Known Results Summary Purpose [employer] Submission
--- OUTSIDE RECORDS SUMMARY | 2020-01-14 19:46 | XMS REPORT ---
Author Author Jose Francisco Azul Organization [facility] Address [address] [place] [address] Care Team Providers Care Yardmaster Name Role Phone JAC Azul Unavailable PROBLEMS Type Condition ICD9-CM Code PGU51-VY Code Onset Dates Condition S tatus SNOMED Code Problem Peyronie's disease 607.85 Active 1 282790 Problem Essential hypertension I10 Active 91098946 Problem Coronary artery disease invo lving caddo coronary artery, angina presence unspecified, unspecified whether caddo or transplanted heart I25.10 Active 954588466047852 Problem Hyperlipemia E78.5 Active 5928470 4 Problem CAD (coronary artery disease) I25.10 Active 65788958 Problem Cataracts, both eyes H26.9 Active 24545780 Problem Back pain M54.9 Active [id number] ALLERGIES No Information ENCOUNTERS Encounter Location Date Diagnosis [facility] [id number] [place] [address] Jan, [facility] [address] [place] [id number] [address] [place] [address] Dec, CAD (coronary artery disease ) I25.10 [facility] [address] [facility] [id number] [address] [place] [address] Dec, [facility] [address] [facility] [id number] [address] [place] [address] Sep, [facility] [address] [id number] [address] [place] [id number] Jul, Dental examination Z01.20 an d Dental caries K02.9 [facility] [address] [place] [id number] [address] [place] [address] Apr, [facility] [address] [place] [place] [id number] [address] [place] [address] Apr, [facility] [address] [id number] [address] [place] [address] Jan, [facility] [address] [id number] [address] [place] [address] Dec, CAD (coronary artery disease ) I25.10 ; Essential hypertension I10 ; Hyperlipemia E78.5 ; Back pain M54.9 and Coronary artery disease involving caddo coronary artery, angina presence unspecified, unspecified whether caddo or transplanted heart I25.10 [facility] [address] [id number] [address] [place] [address] Dec, [facility] [address] [id number] [address] [place] [address] Dec, [facility] [address] [id number] [address] [place] [phone] Dec, [facility] [address] [id number] [address] [place] [address] Dec, [facility] [address] [id number] [address] [place] [phone] Dec, [facility] [address] [id number] [address] [place] [address] Nov, [facility] [address] [facility] [id number] [address] [place] [phone] Aug, [facility] [address] [id number] [address] [place] [address] Jul, Cataracts, both eyes H26.9 ; Essential hypertension I10 ; Back pain M54.9 ; Coronary artery disease involving caddo coronary artery, angina presence unspecified, unspecified whether caddo or transplanted heart I25.10 and Pure hypercholesterolemia E78.00 [facility] [address] [id number] [address] [place] [address] Jul, [facility] [address] [address] February, Hypertension I10 ; Hyperlipe skip E78.5 ; Coronary artery disease involving caddo coronary artery of caddo heart, angina presence unspecified I25.10 and Obesity (BMI 30.0-34.9) E66.9 [place] [id number] [place] [phone] Nov, CAD (coronary artery disease ) I25.[address] [id number] Sep, [address] [address] Sep, Lumbago 724.2 ; Other nonspe cific findings on examination of blood, elevated C-reactive protein (CRP) 790.95 ; Routine general medical examination at health care facility V70.0 ; Peyronie's disease 607.85 ; Coronary atherosclerosis of unspecified type of vessel, caddo or graft 414.00 and Other and unspecified hyperlipidemia 272.[address] [address] Aug, CAD (coronary artery disease ) I25.10 ; Hypertension I10 ; Hyperlipemia E78.5 and Back pain M54.[address] [address] Jul, CAD (coronary artery disease ) I25.[address] [address] Jul, [address] [address] Jul, CAD (coronary artery disease ) I25.10 ; Hypertension I10 ; Hyperlipemia E78.5 and Obesity E66.[address] [address] Jan, [address] [address] Jan, [facility] [address] [id number] [address] [place] [address], [place] [address] Nov, [facility] [address] [id number] [address] [place] [address], [place] [address] Nov, [facility] [address] [id number] [address] [place] [address], [place] [address] Nov, [facility] [address] [id number] [address] [place] [address], [place] [address] Nov, [facility] [address] [id number] [address] [place] [address], [place] [address] Oct, [facility] [address] [id number] [address] [place] [address], [place] [address] Oct, [facility] [address] [id number] [address] [place] [address], [place] [address] Oct, [facility] [address] [id number] [address] [place] [address], [place] [address] Oct, [facility] [address] [id number] [address] [place] [address], [place] [address] Oct, [facility] [address] [id number] [address] [place] [address], [place] [address] Oct, [facility] [address] [id number] [address] [place] [address], [place] [address] Oct, [facility] [address] [id number] [address] [place] [address] Oct, [facility] [address] [id number] [address] [place] [address] Oct, [facility] [address] [id number] [address] [place] [phone] Oct, [facility] [address] [id number] [address] [place] [id number] Oct, [facility] [address] [id number] [address] [place] [address], [place] [address] Oct, [facility] [address] [id number] [address] [place] [address], [place] [address] Sep, [facility] [address] [id number] [address] [place] [address], [place] [address] Sep, [facility] [address] [id number] [address] [place] [address], [place] [address] Aug, [facility] [address] [id number] [address] [place] [address], [place] [address] Aug, [facility] [address] [id number] [address] [place] [address], [place] [address] Jul, [facility] [address] [id number] [address] [place] [address], [place] [address] 23 Jul, 2014 [facility] [address] [id number] [address] [place] [address], [place] [address] 20 Jul, 2014 [facility] [address] [id number] [address] [place] [address], [place] [address] 20 Jul, 2014 [facility] [address] [id number] [address] [place] [address], [place] [address] 16 Jul, 2014 [facility] [address] [id number] [address] [place] [address], [place] [address] 16 Jul, 2014 [facility] [address] [id number] [address] [place] [address], [place] [address] 14 Jul, 2014 [facility] [address] [id number] [address] [place] [address], [place] [address] 14 Jul, 2014 [facility] [address] [id number] [address] [place] [address], [place] [address] 13 Jul, 2014 [facility] [address] [id number] [address] [place] [address], [place] [address] 13 Jul, 2014 [facility] [address] [id number] [address] [place] [address], [place] [address] Jun, [facility] [address] [id number] [facility] [place] [address] Jun, [facility] [address] [id number] [address] [place] [address], [place] [address] May, [facility] [address] [id number] [address] [place] [address], [place] [address] May, [facility] [address] [id number] [address] [place] [address], [place] [address] May, [facility] [address] [id number] [address] [place] [address], [place] [address] May, [facility] [address] [id number] [address] [place] [address], [place] [address] Apr, [facility] [address] [id number] [address] [place] [address], [place] [address] Apr, [facility] [address] [id number] [address] [place] [address], [place] [address] Apr, [facility] [address] [id number] [address] [place] [address], [place] [address] Apr, [facility] [address] [id number] [address] [place] [address], [place] [address] Apr, [facility] [address] [id number] [address] [place] [address], [place] [address] Apr, [facility] [address] [id number] [address] [place] [address], [place] [address] Apr, [facility] [address] [id number] [address] [place] [address], [place] [address] Apr, [facility] [address] [id number] [address] [place] [address], [place] [address] Jan, [facility] [address] [id number] [address] [place] [address], [place] [address] Jan, [facility] [address] [id number] [address] [place] [address], [place] [address] 20 Dec, 2013 [facility] [address] [id number] [address] [place] [address], [place] [address] 20 Dec, 2013 [facility] [address] [id number] [address] [place] [address], [place] [address] 17 Dec, 2013 [facility] [address] [id number] [address] [place] [address], [place] [address] 17 Dec, 2013 [facility] [address] [id number] [address] [place] [address], [place] [address] 17 Dec, 2013 [facility] [address] [id number] [address] [place] [address], [place] [address] 17 Dec, 2013 [facility] [address] [id number] [address] [place] [address], [place] [address] 11 Dec, 2013 [facility] [address] [id number] [address] [place] [address], [place] [address] 11 Dec, 2013 [facility] [address] [id number] [address] [place] [address], [place] [address] Oct, [facility] [address] [id number] [address] [place] [address], [place] [address] Oct, [facility] [address] [id number] [address] [place] [address], [place] [address] 30 Sep, 2013 [facility] [address] [id number] [address] [place] [address], [place] [address] 30 Sep, 2013 [facility] [address] [id number] [address] [place] [address], [place] [address] 16 Sep, 2013 [facility] [address] [id number] [address] [place] [address], [place] [address] 16 Sep, 2013 [facility] [address] [id number] [address] [place] [address], [place] [address] 12 Sep, 2013 [facility] [address] [id number] [address] [place] [address], [place] [address] Sep, [facility] [address] [id number] [address] [place] [address], [place] [address] Sep, [facility] [address] [id number] [address] [place] [address], [place] [address] Sep, [facility] [address] [id number] [address] [place] [address], [place] [address] Sep, [facility] [address] [id number] [address] [place] [address], [place] [address] Aug, [facility] [address] [id number] [address] [place] [address], [place] [address] Aug, [facility] [address] [id number] [address] [place] [address], [place] [address] Jul, [facility] [address] [id number] [address] [place] [address], [place] [address] Jul, [facility] [address] [id number] [address] [place] [address], [place] [address] Jul, [facility] [address] [id number] [address] [place] [address], [place] [address] Jul, [facility] [address] [id number] [address] [place] [address], [place] [address] 15 Jul, 2013 [facility] [address] [id number] [address] [place] [address], [place] [address] 15 Jul, 2013 [facility] [address] [id number] [address] [place] [address] 30 Jun, 2013 [facility] [address] [id number] [address] [place] [address], [place] [address] 18 Jun, 2013 [facility] [address] [id number] [address] [place] [address], [place] [address] 18 Jun, 2013 [facility] [address] [id number] [address] [place] [address], [place] [address] 17 Sep2012 [facility] [address] [id number] [address] [place] [address], [place] [address] Jun, [facility] [address] [id number] [address] [place] [address], [place] [address] May, [facility] [address] [id number] [address] [place] [address], [place] [address] Apr, [facility] [address] [id number] [address] [place] [address], [place] [address] Apr, [facility] [address] [id number] [address] [place] [address], [place] [address] Apr, [facility] [address] [id number] [address] [place] [address], [place] [address] February, [facility] [address] [id number] [address] [place] [address], [place] [address] Jan, [facility] [address] [id number] [address] [place] [address], [place] [address] Dec, [facility] [address] [id number] [address] [place] [address], [place] [address] Dec, [facility] [address] [id number] [address] [place] [address], [place] [address] Dec, [facility] [address] [id number] [address] [place] [address], [place] [address] Nov, [facility] [address] [id number] [address] [place] [address], [place] [address] Nov, [facility] [address] [id number] [address] [place] [address], [place] [address] Oct, [facility] [address] [id number] [address] [place] [address], [place] [address] Oct, [facility] [address] [id number] [address] [place] [address], [place] [address] Oct, [facility] [address] [id number] [address] [place] [address], [place] [address] Oct, [facility] [address] [id number] [address] [place] [address], [place] [address] 17 Oct, 2012 [facility] [address] [id number] [address] [place] [address], [place] [address] Oct, [facility] [address] [id number] [address] [place] [address], [place] [address] 16 Oct, 2012 [facility] [address] [id number] [address] [place] [address], [place] [address] Oct, [facility] [address] [id number] [address] [place] [address], [place] [address] Oct, [facility] [address] [id number] [address] [place] [address], [place] [address] Oct, [facility] [address] [id number] [address] [place] [address], [place] [address] Oct, [facility] [address] [id number] [address] [place] [address], [place] [address] Oct, [facility] [address] [id number] [address] [place] [address], [place] [address] Sep, [facility] [address] [id number] [address] [place] [address], [place] [address] Sep, [facility] [address] [id number] [address] [place] [address], [place] [address] Sep, [facility] [address] [id number] [address] [place] [address], [place] [address] Sep, [facility] [address] [id number] [address] [place] [address], [place] [address] Sep, [facility] [address] [id number] [address] [place] [address], [place] [address] Sep, [facility] [address] [id number] [address] [place] [address], [place] [id number] Sep, [facility] [address] [id number] [address] [place] [address], [place] [phone] Sep, [facility] [address] [id number] [address] [place] [address], [place] [phone] Jul, [facility] [address] [id number] [address] [place] [id number] Jun, [facility] [address] [id number] [address] [place] [phone] Jun, [facility] [address] [id number] [address] [place] [phone] Jun, [facility] [address] [id number] [address] [place] [address], [place] [phone] May, [facility] [address] [id number] [address] [place] [phone] May, [facility] [address] [id number] [address] [place] [id number] May, [facility] [address] [id number] [address] [place] [id number] Apr, [facility] [address] [id number] [address] [place] [phone] Apr, [facility] [address] [id number] [address] [place] [phone] Mar, [facility] [place] [address] [id number] [address] [place] [id number] Mar, [facility] [address] [id number] [address] [place] [phone] Mar, [facility] [address] [id number] [address] [place] [phone] Mar, [facility] [place] [address] [id number] [address] [place] [phone] Nov, [facility] [place] [address] [id number] [address] [place] [phone] Nov, IMMUNIZATIONS No Known Immunizations SOCIAL HISTORY Never Assessed REASON FOR VISIT PALS IN-Effient PLAN OF CARE VITAL SIGNS MEDICATIONS Unknown Medications RESULTS No Results PROCEDURES No Known procedures INSTRUCTIONS MEDICATIONS ADMINISTERED No Known Medications MEDICAL (GENERAL) HISTORY Type Description Date Medical History HTN Medical History CAD Medical History Coronary atherosclerosis of unspecified type of vessel, [place] or graft Medical History heart attack Surgical [...]
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
--- OUTSIDE RECORDS SUMMARY | 2020-01-14 19:46 | XMS REPORT ---
Author Author Jose Francisco GONZALES Organization [facility] Address [address] [place] [address] Care Team Providers Care Instructor Bridge Name Role Phone BRYN GONZALES Unavailable PROBLEMS Type Condition ICD9-CM Code [id number] Code Onset Dates Condition S tatus SNOMED Code Problem Peyronie's disease 607.85 Active 1 353266 Problem Essential hypertension I10 Active 29485008 Problem Coronary artery disease invo lving [place] coronary artery, angina presence unspecified, unspecified whether [place] or transplanted heart I25.10 Active 906149900316746 Problem Hyperlipemia E78.5 Active 3706407 4 Problem CAD (coronary artery disease) I25.10 Active 69477937 Problem Cataracts, both eyes H26.9 Active 25458112 Problem Back pain M54.9 Active [id number] ALLERGIES No Information SOCIAL HISTORY Never Assessed PLAN OF CARE VITAL SIGNS MEDICATIONS Medication Instructions Dosage Frequency Start Date End Date Duration S tatus Effient 10 MG Orally once daily as directed 24h Nov, 90 days Active RESULTS No Results PROCEDURES No Known procedures IMMUNIZATIONS No Known Immunizations MEDICAL (GENERAL) HISTORY Type Description Date Medical History HTN Medical History CAD Medical History Coronary atherosclerosis of unspecified type of vessel, [place] or graft Surgical History Prior surgery left [...]
--- OUTSIDE RECORDS SUMMARY | 2020-01-14 19:46 | XMS REPORT ---
Author Jose Francisco Carmen [facility] eClinicalWorks Address Unknown Phone Unavailable Care Team Providers Care Dethistler Operator Name Role Phone JAC OROZCO CP Unavailable Allergies, Adverse Reactions, Alerts Substance Reaction Event Type N.K.D.A. Info Not Available Non Drug Allergy Problems Problem Type Condition Code Onset Dates Condition Statu s Assessment Back pain M54.9 Active Assessment Cataracts, both eyes H26.9 Active Assessment Essential hypertension I10 Activ e Assessment Pure hypercholesterolemia E78.00 Ac tive Assessment Coronary artery disease invo lving [place] coronary artery, angina presence unspecified, unspecified whether [place] or transplanted heart I25.10 Active Problem Cataracts, both eyes H26.9 Active Problem Coronary artery disease invo lving [place] coronary artery, angina presence unspecified, unspecified whether [place] or transplanted heart I25.10 Active Problem Essential hypertension I10 Activ e Problem Hyperlipemia E78.5 Active Problem Peyronie's disease 607.85 Active Problem Back pain M54.9 Active Problem CAD (coronary artery disease) I25.10 Active Medications Medication Code System Code Instructions Start Date End Date Status Dosage Aspirin Adult Low Dose [facility] [address]-15 81 MG Orally Once a day 1 tablet Effient [facility] [address]-91 10 MG Nov 13, 2014 take 1 tablet (10 mg) by oral route once daily Hydrocodone-Acetaminophen [facility] [address]-47 5-325 MG Orall y 3 times a day prn Aug 04, 2014 take 1 tablet by ora l route every 4-6 hours as needed for pain PRN Nitrostat [facility] [address]-68 0.4 MG Sublingual Jun 26, 2014 1 tablet by Sublingual route 3 times per day PRN chest pain; may repeat q 5 min x 2 Procedures Procedure Coding System Code Date COMPREHEN METABOLIC PANEL CPT-4 93700 Jul LIPID PANEL CPT-4 78954 Jul 31, 2016 COMPLETE CBC W/AUTO DIFF WBC CPT-4 02119 Jul 31, 2016 C-REACTIVE PROTEIN, HS CPT-4 39159 Jul 31, 2 016 Office Visit, Est Pt., Level 4 CPT-[address] 2015 VENIPUNCT, ROUTINE* CPT-4 02817 Jul 31, 2016 ELECTROCARDIOGRAM, TRACING CPT-4 25281 Jul 222015 Vital Signs Date/Time: Jul 31, 2016 Cardiac Monitoring Heart Rate 66 bpm Weight 242.5 lbs Height 71 in BMI 33.82 Index Blood Pressure Diastolic 86 mmHg Blood Pressure Systolic 148 mmHg Results Name Result Date Reference Range Unit Abnormali ty Flag ROUTINE VENIPUNCTURE Summary Purpose eClinicalWorks Submission
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
--- OUTSIDE RECORDS SUMMARY | 2020-01-14 19:46 | XMS REPORT ---
Author Jose Francisco Bean Organization [employer] Address Unknown Phone Unavailable Care Team Providers Care Art Manager Name Role Phone PRISCILA MCKEON CP Unavailable Allergies, Adverse Reactions, Alerts Substance Reaction Event Type N.K.D.A. Info Not Available Non Drug Allergy Problems Problem Type Condition Code Onset Dates Condition Statu s Assessment Other and unspecified hyperlipidemia 272.4 Active Assessment Coronary atherosclerosis of unspecified type of vessel, [place] or graft 414.00 Active Assessment Peyronie's disease 607.85 Active Assessment Lumbago 724.2 Active Assessment Other nonspecific findings o n examination of blood, elevated C- reactive protein (CRP) 790.95 Active Problem Major depressive disorder, recurrent episode, moderate 296.32 Active Assessment Routine general medical examination at [facility] V70.0 Active Problem Anxiety state, unspecified 300.00 A ctive Problem Other nonspecific findings o n examination of blood, elevated C-reactive protein (CRP) 790.95 Active Problem Encounter for long-term (current) use of other medicat ions V58.69 Active Problem Insomnia, unspecified 780.52 Active Problem Coronary atherosclerosis of unspecified type of vessel, [place] or graft 414.00 Active Problem CAD (coronary artery disease) I25.10 Active Problem Hypertension I10 Active Problem Elevated blood pressure reading without diagnosi s of hypertension 796.2 Active Problem Other specified examination V72.85 Active Problem Back pain M54.9 Active Problem Other abnormal glucose 790.29 Activ e Problem Chest pain, unspecified 786.50 Acti ve Problem Routine general medical examination at [facility] V70.0 Active Problem Hyperlipemia E78.5 Active Problem [...] Start Date End Date Status Dosage Effient [facility] [address]-74 10 MG Nov 13, 2014 take 1 tablet (10 mg) by oral route once daily Aspirin Adult Low Dose [facility] [address]-36 81 MG Orally Once a day 1 tablet Procedures Procedure Coding System Code Date TB INTRADERMAL TEST CPT-4 65002 Sep 30, 2015 Office Visit, Est Pt., Level 3 CPT-4 38242 D 2014 Vital Signs Date/Time: Sep 30, 2015 Temperature 97.8 F Weight 247 lbs Height 71 in BMI 34.45 Index Blood Pressure Diastolic 82 mmHg Blood Pressure Systolic 140 mmHg Cardiac Monitoring Heart Rate 68 bpm Results No Known Results Summary Purpose [employer] Submission
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
--- OUTSIDE RECORDS SUMMARY | 2020-01-14 19:47 | XMS REPORT ---
Author Author Jose Francisco GONZALES Organization [employer] Address Unknown Phone Unavailable Care Team Providers Care Lead Cashier Name Role Phone BRYN GONZALES CP Unavailable Allergies, Adverse Reactions, Alerts Substance Reaction Event Type N.K.D.A. Info Not Available Non Drug Allergy Problems Problem Type Condition Code Onset Dates Condition Statu s Assessment Obesity E66.9 Active Assessment Hyperlipemia E78.5 Active Problem Other and unspecified hyperlipidemia 272.4 Active Assessment Hypertension I10 Active Problem Major depressive disorder, recurrent episode, moderate 296.32 Active Assessment CAD (coronary artery disease) I25.10 Active Problem Anxiety state, unspecified 300.00 A ctive Problem Coronary atherosclerosis of unspecified type of vessel, [place] or graft 414.00 Active Problem Encounter for long-term (current) use of other medicat ions V58.69 Active Problem Hypertension I10 Active Problem Hyperlipemia E78.5 Active Problem Other specified examination V72.85 Active Problem Other abnormal glucose 790.29 Activ e Problem CAD (coronary artery disease) I25.10 Active Problem Other nonspecific findings o n examination of blood, elevated C-reactive protein (CRP) 790.95 Active Problem Routine general medical examination at [...] without mention of complication 891.0 Active Problem Lumbago 724.2 Active Medications Medication Code System Code Instructions Start Date End Date Status Dosage Nitrostat [facility] [address]-08 0.4 MG Jun 26, 2014 1 tablet by Sublingual route 3 times per day PRN chest pain; may repeat q 5 min x 2 Hydrocodone-Acetaminophen [facility] [address]-88 5-325 mg Aug 04, 2014 take 1 tablet by oral route every 4-6 hours as needed for pain PRN Effient [facility] [address]-90 10 MG Nov 13, 2014 take 1 tablet (10 mg) by oral route once daily Lisinopril-Hydrochlorothiazide [facility] [address]-09 20-12.5 mg Oct take 1 tablet by Oral route 1 time per day Procedures Procedure Coding System Code Date Office Visit, Est Pt., Level 4 CPT-4 47771 O 2014 Vital Signs Date/Time: Aug 13, 2015 Temperature 97.7 F Weight 243.8 lbs Height 71 in BMI 34.00 Index Blood Pressure Diastolic 82 mmHg Blood Pressure Systolic 146 mmHg Cardiac Monitoring Heart Rate 72 bpm Results No Known Results Summary Purpose [employer] Submission
--- OUTSIDE RECORDS SUMMARY | 2020-01-14 19:47 | XMS REPORT | Continuity of Care Document ---
Author Organization Unknown Address Unknown Phone Unavailable Allergies Active Description Code Type Severity Reaction Onset Reported/Identified Relationship to Patient Clinical Status Yes No Known Drug Allergies [id number] Drug Allergy Unknown N/A 06/27/2010 Medications There is no data. Problems Date Dx Coded Attending Type Code Diagnosis Diagnosed By 11/26/2009 V70.0 ROUT INE GENERAL MEDICAL EXAMINATION AT A HEALTH CARE FACILITY 11/26/2009 HUTCHISON BRYSON RANDLE K V70.0 ROUTINE GENERAL MEDICAL EXAMINATION AT A HEALTH CARE FACILITY 11/26/2009 HUTCHISON BRYSON RANDLE K V70.0 ROUTINE GENERAL MEDICAL EXAMINATION AT A HEALTH CARE FACILITY 11/26/2009 HUTCHISON BRYSON RANDLE K V70.0 ROUTINE GENERAL MEDICAL EXAMINATION AT A HEALTH CARE FACILITY 11/26/2009 BRYSON HUTCHISON DO K V70.0 ROUTINE GENERAL MEDICAL EXAMINATION AT A HEALTH CARE FACILITY 11/26/2009 V70.0 ROUT INE GENERAL MEDICAL EXAMINATION AT A HEALTH CARE FACILITY 11/26/2009 V70.0 ROUT INE GENERAL MEDICAL EXAMINATION AT A HEALTH CARE FACILITY 11/26/2009 V70.0 ROUT INE GENERAL MEDICAL EXAMINATION AT A HEALTH CARE FACILITY 11/26/2009 KRYSTINA HUTCHISON DOA K V70.0 ROUTINE GENERAL MEDICAL EXAMINATION AT A HEALTH CARE FACILITY 11/26/2009 V70.0 ROUT INE GENERAL MEDICAL EXAMINATION AT A HEALTH CARE FACILITY 11/26/2009 V70.0 ROUT INE GENERAL MEDICAL EXAMINATION AT A HEALTH CARE FACILITY 11/26/2009 DANO BARLOW, DONTA Rider V70.0 ROUTINE GENERAL MEDICAL EXAMINATION AT A [facility] 11/26/2009 DANO PHD, DONTA Rider V70.0 ROUTINE GENERAL MEDICAL EXAMINATION AT A [facility] C[facility] 11/26/2009 DANO BARLOW, DONTA Rider V70.0 ROUTINE GENERAL MEDICAL EXAMINATION AT A [facility] 11/26/2009 DANO BARLOW, DONTA Rider V70.0 ROUTINE GENERAL MEDICAL EXAMINATION AT A [facility] 11/26/2009 DANO BARLOW, DONTA Rider V70.0 ROUTINE GENERAL MEDICAL EXAMINATION AT A [facility] 11/26/2009 BRYSON HUTCHISON DO V70.0 ROUTINE GENERAL MEDICAL EXAMINATION AT A HEALTH CARE FACILITY 11/26/2009 BRYSON HUTCHISON DO V70.0 ROUTINE GENERAL MEDICAL EXAMINATION AT A HEALTH CARE FACILITY 11/26/2009 BRYSON HUTCHISON DO K V70.0 ROUTINE GENERAL MEDICAL EXAMINATION AT A HEALTH CARE FACILITY 11/26/2009 BRYSON HUTCHISON DO V70.0 ROUTINE GENERAL MEDICAL EXAMINATION AT A HEALTH CARE FACILITY 11/26/2009 BRYSON HUTCHISON DO V70.0 ROUTINE GENERAL MEDICAL EXAMINATION AT A HEALTH CARE FACILITY 11/26/2009 BRYSON HUTCHISON DO K V70.0 ROUTINE GENERAL MEDICAL EXAMINATION AT A HEALTH CARE FACILITY 11/26/2009 KIANNA RANDLE, BRYSON K V70.0 ROUTINE GENERAL MEDICAL EXAMINATION AT A HEALTH CARE FACILITY 11/26/2009 BRYSON HUTCHISON DO K V70.0 ROUTINE GENERAL MEDICAL EXAMINATION AT A HEALTH CARE FACILITY 11/26/2009 BRYSON HUTCHISON DO V70.0 ROUTINE GENERAL MEDICAL EXAMINATION AT A HEALTH CARE FACILITY 11/26/2009 BRYN GONZALES MD V70.0 ROUTINE GENERAL MEDICAL EXAMINATION AT A HEALTH CARE FACILITY 11/26/2009 BRYN GONZALES MD V70.0 ROUTINE GENERAL MEDICAL EXAMINATION AT A HEALTH CARE FACILITY 06/27/2010 Ot 305.1 06/27/2010 Ot 410.11 06/27/2010 Ot 786.59 07/29/2011 Ot 300.00 ANX IETY STATE NOS 07/29/[address] PAIN NOS 07/29/[address] PAIN NEC 11/28/2011 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 11/28/2011 BRYSON HUTCHISON DO 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 11/28/2011 BRYSON HUTCHISON DO 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 11/28/2011 BRYSON HUTCHISON DO 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 11/28/2011 BRYSON HUTCHISON DO 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 11/28/2011 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 11/28/2011 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 11/28/2011 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 11/28/2011 BRYSON HUTCHISON DO 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 11/28/2011 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 11/28/2011 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 11/28/2011 DANO PHD, DONTA A 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 11/28/2011 DANO PHD, DONTA A 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 11/28/2011 DANO PHD, DONTA Rider 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 11/28/2011 DANO PHD, DONTA A 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 11/28/2011 DANO PHD, DONTA A 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 11/28/2011 HUTCHISON DO, BRYSON K 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 11/28/2011 HUTCHISON DO, BRYSON K 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 11/28/2011 HUTCHISON DO, BRYSON K 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 11/28/2011 HUTCHISON DO, BRYSON K 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 11/28/2011 HUTCHISON DO, BRYSON K 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 11/28/2011 HUTCHISON DO, BRYSON K 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 11/28/2011 HUTCHISON DO, BRYSON K 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 11/28/2011 HUTCHISON DO, BRYSON K 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 11/28/2011 HUTCHISON DO, BRYSON K 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 11/28/2011 CHRISTIAN GRAJEDA, BRYN 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 11/28/2011 CHRISTIAN GRAJEDA, BRYN 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 03/13/2012 Ot 272.4 HYPE RLIPIDEMIA NEC/NOS 03/13/2012 Ot 300.00 ANX IETY STATE NOS 03/13/2012 Ot 412 OLD MY OCARDIAL INFARCT 03/13/2012 Ot 414.01 COR ONARY ATHEROSCLEROSIS OF TRIBE CORON 03/13/2012 Ot 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 03/13/[address] PAIN NOS 03/13/2012 Ot V15.82 HIS TORY OF TOBACCO USE 03/13/2012 Ot V45.82 PER CUTANEOUS TRANSLUM CORON ANGIOPLASTY 03/13/2012 Ot V58.66 EDUAR G-TERM (CURRENT) USE OF ASPIRIN 03/13/2012 Ot V58.69 OTH MED,LT,CURRENT USE 04/08/2012 300.00 ANX IETY STATE UNSPECIFIED 04/08/2012 414.00 COR ONARY ATHEROSCLEROSIS OF UNSPECIFIED TYPE OF VESSEL TRIBE OR GRAFT 04/08/2012 780.52 INS OMNIA UNSPECIFIED 04/08/2012 V58.69 EDUAR G-TERM (CURRENT) USE OF OTHER MEDICATIONS 04/08/2012 V70.0 ROUT INE GENERAL MEDICAL EXAMINATION AT A HEALTH CARE FACILITY 04/08/2012 KIANNA DO BRYSON K 300.00 ANXIETY STATE UNSPECIFIED 04/08/2012 KIANNA RANDLE BRYSON K 414.00 CORONARY ATHEROSCLEROSIS OF UNSPECIFIED TYPE OF VESSEL TRIBE OR GRAFT 04/08/2012 KIANNA RANDLE BRYSON K 780.52 INSOMNIA UNSPECIFIED 04/08/2012 KIANNA RANDLE BRYSON K V58.69 LONG-TERM (CURRENT) USE OF OTHER MEDICATIONS 04/08/2012 KIANNA RANDLE BRYSON K V70.0 ROUTINE GENERAL MEDICAL EXAMINATION AT A HEALTH CARE FACILITY 04/08/2012 KIANNA DO BRYSON K 300.00 ANXIETY STATE UNSPECIFIED 04/08/2012 HUTCHISON DO BRYSON K 414.00 CORONARY ATHEROSCLEROSIS OF UNSPECIFIED TYPE OF VESSEL TRIBE OR GRAFT 04/08/2012 KIANNA DO BRYSON K 780.52 INSOMNIA UNSPECIFIED 04/08/2012 KIANNA DO BRYSON K V58.69 LONG-TERM (CURRENT) USE OF OTHER MEDICATIONS 04/08/2012 KIANNA RANDLE BRYSON K V70.0 ROUTINE GENERAL MEDICAL EXAMINATION AT A HEALTH CARE FACILITY 04/08/2012 KIANNA RANDLE BRYSON K 300.00 ANXIETY STATE UNSPECIFIED 04/08/2012 HUTCHISON DO BRYSON K 414.00 CORONARY ATHEROSCLEROSIS OF UNSPECIFIED TYPE OF VESSEL TRIBE OR GRAFT 04/08/2012 KIANNA RANDLE BRYSON K 780.52 INSOMNIA UNSPECIFIED 04/08/2012 HUTCHISON DO BRYSON K V58.69 LONG-TERM (CURRENT) USE OF OTHER MEDICATIONS 04/08/2012 HUTCHISON DO BRYSON K V70.0 ROUTINE GENERAL MEDICAL EXAMINATION AT A HEALTH CARE FACILITY 04/08/2012 HUTCHISON DO BRYSON K 300.00 ANXIETY STATE UNSPECIFIED 04/08/2012 BRYSON HUTCHISON DO 414.00 CORONARY ATHEROSCLEROSIS OF UNSPECIFIED TYPE OF VESSEL TRIBE OR GRAFT 04/08/2012 BRYSON HUTCHISON DO 780.52 INSOMNIA UNSPECIFIED 04/08/2012 BRYSON HUTCHISON DO V58.69 LONG-TERM (CURRENT) USE OF OTHER MEDICATIONS 04/08/2012 BRYSON HUTCHISON DO V70.0 ROUTINE GENERAL MEDICAL EXAMINATION AT A HEALTH CARE FACILITY 04/08/2012 300.00 ANX IETY STATE UNSPECIFIED 04/08/2012 414.00 COR ONARY ATHEROSCLEROSIS OF UNSPECIFIED TYPE OF VESSEL TRIBE OR GRAFT 04/08/2012 780.52 INS OMNIA UNSPECIFIED 04/08/2012 V58.69 EDUAR G-TERM (CURRENT) USE OF OTHER MEDICATIONS 04/08/2012 V70.0 ROUT INE GENERAL MEDICAL EXAMINATION AT A HEALTH CARE FACILITY 04/08/2012 300.00 ANX IETY STATE UNSPECIFIED 04/08/2012 414.00 COR ONARY ATHEROSCLEROSIS OF UNSPECIFIED TYPE OF VESSEL TRIBE OR GRAFT 04/08/2012 780.52 INS OMNIA UNSPECIFIED 04/08/2012 V58.69 EDUAR G-TERM (CURRENT) USE OF OTHER MEDICATIONS 04/08/2012 V70.0 ROUT INE GENERAL MEDICAL EXAMINATION AT A HEALTH CARE FACILITY 04/08/2012 300.00 ANX IETY STATE UNSPECIFIED 04/08/2012 414.00 COR ONARY ATHEROSCLEROSIS OF UNSPECIFIED TYPE OF VESSEL TRIBE OR GRAFT 04/08/2012 780.52 INS OMNIA UNSPECIFIED 04/08/2012 V58.69 EDUAR G-TERM (CURRENT) USE OF OTHER MEDICATIONS 04/08/2012 V70.0 ROUT INE GENERAL MEDICAL EXAMINATION AT A HEALTH CARE FACILITY 04/08/2012 BRYSON HUTCHISON DO 300.00 ANXIETY STATE UNSPECIFIED 04/08/2012 BRYSON HUTCHISON DO 414.00 CORONARY ATHEROSCLEROSIS OF UNSPECIFIED TYPE OF VESSEL TRIBE OR GRAFT 04/08/2012 BRYSON HUTCHISON DO 780.52 insomnia 04/08/2012 BRYSON HUTCHISON DO V58.69 LONG-TERM (CURRENT) USE OF OTHER MEDICATIONS 04/08/2012 BRYSON HUTCHISON DO V70.0 ROUTINE GENERAL MEDICAL EXAMINATION AT A HEALTH CARE FACILITY 04/08/2012 300.00 ANX IETY STATE UNSPECIFIED 04/08/2012 414.00 COR ONARY ATHEROSCLEROSIS OF UNSPECIFIED TYPE OF VESSEL TRIBE OR GRAFT 04/08/2012 780.52 ins omnia 04/08/2012 V58.69 EDUAR G-TERM (CURRENT) USE OF OTHER MEDICATIONS 04/08/2012 V70.0 ROUT INE GENERAL MEDICAL EXAMINATION AT A HEALTH CARE FACILITY 04/08/2012 300.00 ANX IETY STATE UNSPECIFIED 04/08/2012 414.00 COR ONARY ATHEROSCLEROSIS OF UNSPECIFIED TYPE OF VESSEL TRIBE OR GRAFT 04/08/2012 780.52 ins omnia 04/08/2012 V58.69 EDUAR G-TERM (CURRENT) USE OF OTHER MEDICATIONS 04/08/2012 V70.0 ROUT INE GENERAL MEDICAL EXAMINATION AT A [facility] CARE FACILITY 04/08/2012 DONTA MATSON PHD 300.00 ANXIETY STATE UNSPECIFIED 04/08/2012 DONTA MATSON PHD 414.00 CORONARY ATHEROSCLEROSIS OF UNSPECIFIED TYPE OF VESSEL TRIBE OR GRAFT 04/08/2012 DONTA MATSNO PHD 780.52 insomnia 04/08/2012 DONTA MATSON PHD V58.69 LONG-TERM (CURRENT) USE OF OTHER MEDICATIONS 04/08/2012 DONTA MATSON PHD V70.0 ROUTINE GENERAL MEDICAL EXAMINATION AT [facility] 04/08/2012 DONTA MATSON PHD 300.00 ANXIETY STATE UNSPECIFIED 04/08/2012 DONTA MATSON PHD 414.00 CORONARY ATHEROSCLEROSIS OF UNSPECIFIED TYPE OF VESSEL TRIBE OR GRAFT 04/08/2012 DONTA MATSON PHD 780.52 insomnia 04/08/2012 DONTA MATSON PHD V58.69 LONG-TERM (CURRENT) USE OF OTHER MEDICATIONS 04/08/2012 DONTA MATSON PHD V70.0 ROUTINE GENERAL MEDICAL EXAMINATION AT [facility] 04/08/2012 DONTA MATSON PHD 300.00 ANXIETY STATE UNSPECIFIED 04/08/2012 DONTA MATSON PHD 414.00 CORONARY ATHEROSCLEROSIS OF UNSPECIFIED TYPE OF VESSEL TRIBE OR GRAFT 04/08/2012 DONTA MATSON PHD 780.52 insomnia 04/08/2012 DONTA MATSON PHD V58.69 LONG-TERM (CURRENT) USE OF OTHER MEDICATIONS 04/08/2012 DONTA MATSON PHD V70.0 ROUTINE GENERAL MEDICAL EXAMINATION AT [facility] 04/08/2012 DONTA MATSON PHD 300.00 ANXIETY STATE UNSPECIFIED 04/08/2012 DONTA MATSON PHD 414.00 CORONARY ATHEROSCLEROSIS OF UNSPECIFIED TYPE OF VESSEL TRIBE OR GRAFT 04/08/2012 DONTA MATSON PHD 780.52 insomnia 04/08/2012 DONTA MATSON PHD V58.69 LONG-TERM (CURRENT) USE OF OTHER MEDICATIONS 04/08/2012 DONTA MATSON PHD V70.0 ROUTINE GENERAL MEDICAL EXAMINATION AT [facility] 04/08/2012 DONTA MATSON PHD 300.00 ANXIETY STATE UNSPECIFIED 04/08/2012 DONTA MATSON PHD 414.00 CORONARY ATHEROSCLEROSIS OF UNSPECIFIED TYPE OF VESSEL TRIBE OR GRAFT 04/08/2012 DONTA MATSON PHD 780.52 insomnia 04/08/2012 DONTA MATSON PHD V58.69 LONG-TERM (CURRENT) USE OF OTHER MEDICATIONS 04/08/2012 DONTA MATSON PHD V70.0 ROUTINE GENERAL MEDICAL EXAMINATION AT [facility] 04/08/2012 HUTCHISON DO BRYSON K 300.00 ANXIETY STATE UNSPECIFIED 04/08/2012 HUTCHISON DO, BRYSON K 414.00 CORONARY ATHEROSCLEROSIS OF UNSPECIFIED TYPE OF VESSEL TRIBE OR GRAFT 04/08/2012 HUTCHISON DO BRYSON K 780.52 insomnia 04/08/2012 HUTCHISON DO BRYSON K V58.69 LONG-TERM (CURRENT) USE OF OTHER MEDICATIONS 04/08/2012 HUTCHISON DO BRYSON K V70.0 ROUTINE GENERAL MEDICAL EXAMINATION AT A [facility] CARE [facility] 04/08/2012 HUTCHISON DO BRYSON K 300.00 ANXIETY STATE UNSPECIFIED 04/08/2012 HUTCHISON DO BRYSON K 414.00 CORONARY ATHEROSCLEROSIS OF UNSPECIFIED TYPE OF VESSEL TRIBE OR GRAFT 04/08/2012 HUTCHISON DO, BRYSON K 780.52 insomnia 04/08/2012 HUTCHISON DO, BRYSON K V58.69 LONG-TERM (CURRENT) USE OF OTHER MEDICATIONS 04/08/2012 HUTCHISON DO, BRYSON K V70.0 ROUTINE GENERAL MEDICAL EXAMINATION AT A HEALTH [facility]ARE [facility] 04/08/2012 HUTCHISON DO, BRYSON K 300.00 ANXIETY STATE UNSPECIFIED 04/08/2012 HUTCHISON DO, BRYSON K 414.00 CORONARY ATHEROSCLEROSIS OF UNSPECIFIED TYPE OF VESSEL TRIBE OR GRAFT 04/08/2012 HUTCHISON DO BRYSON K 780.52 insomnia 04/08/2012 HUTCHISON DO, BRYSON K V58.69 LONG-TERM (CURRENT) USE OF OTHER MEDICATIONS 04/08/2012 HUTCHISON DO, BRYSON K V70.0 ROUTINE GENERAL MEDICAL EXAMINATION AT A HEALTH CARE FACILITY 04/08/2012 HUTCHISON DO, BRYSON K 300.00 ANXIETY STATE UNSPECIFIED 04/08/2012 HUTCHISON DO, BRYSON K 414.00 CORONARY ATHEROSCLEROSIS OF UNSPECIFIED TYPE OF VESSEL TRIBE OR GRAFT 04/08/2012 HUTCHISON DO, BRYSON K 780.52 insomnia 04/08/2012 HUTCHISON DO, BRYSON K V58.69 LONG-TERM (CURRENT) USE OF OTHER MEDICATIONS 04/08/2012 HUTCHISON DO, BRYSON K V70.0 ROUTINE GENERAL MEDICAL EXAMINATION AT A HEALTH CARE FACILITY 04/08/2012 HUTCHISON DO, BRYSON K 300.00 ANXIETY STATE UNSPECIFIED 04/08/2012 HUTCHISON DO, BRYSON K 414.00 CORONARY ATHEROSCLEROSIS OF UNSPECIFIED TYPE OF VESSEL TRIBE OR GRAFT 04/08/2012 HUTCHISON DO, BRYSON K 780.52 insomnia 04/08/2012 HUTCHISON DO, BRYSON K V58.69 LONG-TERM (CURRENT) USE OF OTHER MEDICATIONS 04/08/2012 HUTCHISON DO, BRYSON K V70.0 ROUTINE GENERAL MEDICAL EXAMINATION AT A HEALTH CARE FACILITY 04/08/2012 HUTCHISON DO, BRYSON K 300.00 ANXIETY STATE UNSPECIFIED 04/08/2012 HUTHCISON DO, BRYSON K 414.00 CORONARY ATHEROSCLEROSIS OF UNSPECIFIED TYPE OF VESSEL TRIBE OR GRAFT 04/08/2012 HUTCHISON DO, BRYSON K 780.52 insomnia 04/08/2012 HUTCHISON DO, BRYSON K V58.69 LONG-TERM (CURRENT) USE OF OTHER MEDICATIONS 04/08/2012 HUTCHISON DO, BRYSON K V70.0 ROUTINE GENERAL MEDICAL EXAMINATION AT A HEALTH CARE FACILITY 04/08/2012 HUTCHISON DO, BRYSON K 300.00 ANXIETY STATE UNSPECIFIED 04/08/2012 HUTCHISON DO, BRYSON K 414.00 CORONARY ATHEROSCLEROSIS OF UNSPECIFIED TYPE OF VESSEL TRIBE OR GRAFT 04/08/2012 HUTCHISON DO, BRYSON K 780.52 insomnia 04/08/2012 HUTCHISON DO, BRYSON K V58.69 LONG-TERM (CURRENT) USE OF OTHER MEDICATIONS 04/08/2012 HUTCHISON DO, BRYSON K V70.0 ROUTINE GENERAL MEDICAL EXAMINATION AT A HEALTH CARE FACILITY 04/08/2012 HUTCHISON DO, BRYSON K 300.00 ANXIETY STATE UNSPECIFIED 04/08/2012 HUTCHISON DO, BRYSON K 414.00 CORONARY ATHEROSCLEROSIS OF UNSPECIFIED TYPE OF VESSEL TRIBE OR GRAFT 04/08/2012 KIANNA RANDLE BRYSON K 780.52 insomnia 04/08/2012 HUTCHISON DO BRYSON K V58.69 LONG-TERM (CURRENT) USE OF OTHER MEDICATIONS 04/08/2012 KIANNA RANDLE BRYSON K V70.0 ROUTINE GENERAL MEDICAL EXAMINATION AT A HEALTH CARE FACILITY 04/08/2012 HUTCHISON DO BRYSON K 300.00 ANXIETY STATE UNSPECIFIED 04/08/2012 HUTCHISON DO BRYSON K 414.00 CORONARY ATHEROSCLEROSIS OF UNSPECIFIED TYPE OF VESSEL TRIBE OR GRAFT 04/08/2012 KIANNA RANDLE BRYSON K 780.52 insomnia 04/08/2012 HUTCHISON DO BRYSON K V58.69 LONG-TERM (CURRENT) USE OF OTHER MEDICATIONS 04/08/2012 KIANNA RANDLE BRYSON K V70.0 ROUTINE GENERAL MEDICAL EXAMINATION AT A HEALTH CARE FACILITY 04/08/2012 BRYN GONZALES MD 300.00 ANXIETY STATE UNSPECIFIED 04/08/2012 BRYN GONZALES MD 414.00 CORONARY ATHEROSCLEROSIS OF UNSPECIFIED TYPE OF VESSEL TRIBE OR GRAFT 04/08/2012 BRYN GONZALES MD 780.52 insomnia 04/08/2012 BRYN GONZALES MD V58.69 LONG-TERM (CURRENT) USE OF OTHER MEDICATIONS 04/08/2012 BRYN GONZALES MD V70.0 ROUTINE GENERAL MEDICAL EXAMINATION AT A HEALTH CARE FACILITY 04/08/2012 BRYN GONZALES MD 300.00 ANXIETY STATE UNSPECIFIED 04/08/2012 BRYN GONZALES MD 414.00 CORONARY ATHEROSCLEROSIS OF UNSPECIFIED TYPE OF VESSEL TRIBE OR GRAFT 04/08/2012 BRYN GONZALES MD 780.52 insomnia 04/08/2012 BRYN GONZALES MD V58.69 LONG-TERM (CURRENT) USE OF OTHER MEDICATIONS 04/08/2012 BRYN GONZALES MD V70.0 ROUTINE GENERAL MEDICAL EXAMINATION AT A HEALTH CARE FACILITY 05/10/2012 724.2 LUMBAGO 05/10/2012 724.3 SCIATICA 05/10/2012 891.0 OPEN WOUND OF KNEE LEG (EXCEPT THIGH) AND ANKLE WITHOUT COMPLICATION 05/10/2012 BRYSON HUTCHISON DO K 724.2 LUMBAGO 05/10/2012 KRYSTINA HUTCHISON DOA K 724.3 SCIATICA 05/10/2012 KRYSTINA HUTCHISON DOA K 891.0 Open Wound Of Knee Leg (except Thigh) And Ankle Without Complication 05/10/2012 HUTCHISON DO, BRYSON K 724.2 LUMBAGO 05/10/2012 HUTCHISON DO, BRYSON K 724.3 SCIATICA 05/10/2012 HUTCHISON DO, BRYSON K 891.0 Open Wound Of Knee Leg (except Thigh) And Ankle Without Complication 05/10/2012 HUTCHISON DO, BRYSON K 724.2 LUMBAGO 05/10/2012 HUTCHISON DO, BRYSON K 724.3 SCIATICA 05/10/2012 HUTCHISON DO, BRYSON K 891.0 Open Wound Of Knee Leg (except Thigh) And Ankle Without Complication 05/10/2012 HUTCHISON DO, BRYSON K 724.2 LUMBAGO 05/10/2012 HUTCHISON DO, BRYSON K 724.3 SCIATICA 05/10/2012 HUTCHISON DO, BRYSON K 891.0 Open Wound Of Knee Leg (except Thigh) And Ankle Without Complication 05/10/2012 724.2 LUMBAGO 05/10/2012 724.3 SCIATICA 05/10/2012 891.0 Open Wound Of Knee Leg (except Thigh) And Ankle Without Complication 05/10/2012 724.2 LUMBAGO 05/10/2012 724.3 SCIATICA 05/10/2012 891.0 Open Wound Of Knee Leg (except Thigh) And Ankle Without Complication 05/10/2012 724.2 LUMBAGO 05/10/2012 724.3 SCIATICA 05/10/2012 891.0 Open Wound Of Knee Leg (except Thigh) And Ankle Without Complication 05/10/2012 HUTCHISON DO, BRYSON K 724.2 LUMBAGO 05/10/2012 HUTCHISON DO, BRYSON K 724.3 SCIATICA 05/10/2012 HUTCHISON DO, BRYSON K 891.0 Open Wound Of Knee Leg (except Thigh) And Ankle Without Complication 05/10/2012 724.2 LUMBAGO 05/10/2012 724.3 SCIATICA 05/10/2012 891.0 Open Wound Of Knee Leg (except Thigh) And Ankle Without Complication 05/10/2012 724.2 LUMBAGO 05/10/2012 724.3 SCIATICA 05/10/2012 891.0 Open Wound Of Knee Leg (except Thigh) And Ankle Without Complication 05/10/2012 DONTA MATSON PHD 724.2 LUMBAGO 05/10/2012 DANO PHD, DONTA A 724.3 SCIATICA 05/10/2012 [facility] PHD, DONTA A 891.0 Open Wound Of Knee Leg (except Thigh) And Ankle Withou t Complication 05/10/2012 [facility], DONTA A 724.2 LUMBAGO 05/10/2012[facility] PHD, DONTA A 724.3 SCIATICA 05/10/2012 [facility] PHD, DONTA A 891.0 Open Wound Of Knee Leg (except Thigh) And Ankle Withou t Complication 05/10/2012 [facility] PHD, DONTA A 724.2 LUMBAGO 05/10/2012 [facility] PHD, DONTA A 724.3 SCIATICA 05/10/2012 [facility] PHD, DONTA A 891.0 Open Wound Of Knee Leg (except Thigh) And Ankle Withou t Complication 05/10/2012 [facility] PHD, DONTA A 724.2 LUMBAGO 05/10/2012 [facility] PHD, DONTA A 724.3 SCIATICA 05/10/2012 [facility] PHD, DONTA A 891.0 Open Wound Of Knee Leg (except Thigh) And Ankle Withou t Complication 05/10/2012 [facility] PHD, DONTA A 724.2 LUMBAGO 05/10/2012 [facility] PHD, DONTA A 724.3 SCIATICA 05/10/2012 [facility] PHD, DONTA A 891.0 Open Wound Of Knee Leg (except Thigh) And Ankle Withou t Complication 05/10/2012 HUTCHISON DO, BRYSON K 724.2 LUMBAGO 05/10/2012 HUTCHISON DO, BRYSON K 724.3 SCIATICA 05/10/2012 HUTCHISON DO, BRYSON K 891.0 Open Wound Of Knee Leg (except Thigh) And Ankle Without Complication 05/10/2012 HUTCHISON DO, BRYSON K 724.2 LUMBAGO 05/10/2012 HUTCHISON DO, BRYSON K 724.3 SCIATICA 05/10/2012 HUTCHISON DO, BRYSON K 891.0 Open Wound Of Knee Leg (except Thigh) And Ankle Without Complication 05/10/2012 HUTCHISON DO, BRYSON K 724.2 LUMBAGO 05/10/2012 HUTCHISON DO, BRYSON K 724.3 SCIATICA 05/10/2012 HUTCHISON DO, BRYSON K 891.0 Open Wound Of Knee Leg (except Thigh) And Ankle Without Complication 05/10/2012 HUTCHISON DO, BRYSON K 724.2 LUMBAGO 05/10/2012 HUTCHISON DO, BRYSON K 724.3 SCIATICA 05/10/2012 HUTCHISON DO, BRYSON K 891.0 Open Wound Of Knee Leg (except Thigh) And Ankle Without Complication 05/10/2012 HUTCHISON DO, BRYSON K 724.2 LUMBAGO 05/10/2012 HUTCHISON DO, BRYSON K 724.3 SCIATICA 05/10/2012 HUTCHISON DO, BRYSON K 891.0 Open Wound Of Knee Leg (except Thigh) And Ankle Without Complication 05/10/2012 HUTCHISON DO, BRYSON K 724.2 LUMBAGO 05/10/2012 HUTCHISON DO, BRYSON K 724.3 SCIATICA 05/10/2012 HUTCHISON DO, BRYSON K 891.0 Open Wound Of Knee Leg (except Thigh) And Ankle Without Complication 05/10/2012 HUTCHISON DO, BRYSON K 724.2 LUMBAGO 05/10/2012 HUTCHISON DO, BRYSON K 724.3 SCIATICA 05/10/2012 HUTCHISON DO, BRYSON K 891.0 Open Wound Of Knee Leg (except Thigh) And Ankle Without Complication 05/10/2012 HUTCHISON DO, BRYSON K 724.2 LUMBAGO 05/10/2012 HUTCHISON DO, BRYSON K 724.3 SCIATICA 05/10/2012 HUTCHISON DO, BRYSON K 891.0 Open Wound Of Knee Leg (except Thigh) And Ankle Without Complication 05/10/2012 HUTCHISON DO, BRYSON K 724.2 LUMBAGO 05/10/2012 HUTCHISON DO, BRYSON K 724.3 SCIATICA 05/10/2012 HUTCHISON DO, BRYSON K 891.0 Open Wound Of Knee Leg (except Thigh) And Ankle Without Complication 05/10/2012 CHRISTIAN GRAJEDA, BRYN 724.2 LUMBAGO 05/10/2012 CHRISTIAN GRAJEDA, BRYN 724.3 SCIATICA 05/10/2012 CHRISTIAN GRAJEDA, BRYN 891.0 Open Wound Of Knee Leg (except Thigh) And Ankle Without Complication 05/10/2012 CHRISTIAN GRAJEDA, BRYN 724.2 LUMBAGO 05/10/2012 CHRISTIAN GRAJEDA, BRYN 724.3 SCIATICA 05/10/2012 CHRISTIAN GRAJEDA, [facility] 891.0 Open Wound Of Knee Leg (except Thigh) And Ankle Without Complication 07/18/2012 796.2 ELEV ATED BLOOD PRESSURE READING WITHOUT DIAGNOSIS OF HYPERTENSION 07/18/2012 V72.85 OTH ER SPECIFIED EXAMINATION 07/18/2012 KRYSTINA HUTCHISON DOA K 796.2 Elevated Blood Pressure Reading Without Diagnosis Of Hypertension 07/18/2012 HUTCHISON DO BRYSON K V72.85 OTHER SPECIFIED EXAMINATION 07/18/2012 HUTCHISON DO, BRYSON K 796.2 Elevated Blood Pressure Reading Without Diagnosis Of Hypertension 07/18/2012 HUTCHISON DO, BRYSON K V72.85 OTHER SPECIFIED EXAMINATION 07/18/2012 HUTCHISON DO, BRYSON K 796.2 Elevated Blood Pressure Reading Without Diagnosis Of Hypertension 07/18/2012 HUTCHISON DO, BRYSON K V72.85 OTHER SPECIFIED EXAMINATION 07/18/2012 HUTCHISON DO BRYSON K 796.2 Elevated Blood Pressure Reading Without Diagnosis Of Hypertension 07/18/2012 HUTCHISON DO BRYSON K V72.85 OTHER SPECIFIED EXAMINATION 07/18/2012 796.2 Elev ated Blood Pressure Reading Without Diagnosis Of Hypertension 07/18/2012 V72.85 OTH ER SPECIFIED EXAMINATION 07/18/2012 796.2 Elev ated Blood Pressure Reading Without Diagnosis Of Hypertension 07/18/2012 V72.85 OT ER SPECIFIED EXAMINATION 07/18/2012 796.2 Elev ated Blood Pressure Reading Without Diagnosis Of Hypertension 07/18/2012 V72.85 OT ER SPECIFIED EXAMINATION 07/18/2012 KRYSTINA HUTCHISON DOA K 796.2 Elevated Blood Pressure Reading Without Diagnosis Of Hypertension 07/18/2012 KIANNA RANDLE BRYSON K V72.85 OTHER SPECIFIED EXAMINATION 07/18/2012 796.2 Elev ated Blood Pressure Reading Without Diagnosis Of Hypertension 07/18/2012 V72.85 OTH ER SPECIFIED EXAMINATION 07/18/2012 796.2 Elev ated Blood Pressure Reading Without Diagnosis Of Hypertension 07/18/2012 V72.85 OT ER SPECIFIED EXAMINATION 07/18/2012 DONTA MATSON PHD 796.2 Elevated Blood Pressure Reading Without Diagnosis Of H ypertension 07/18/2012 DONTA MATSON PHD V72.85 OTHER SPECIFIED EXAMINATION 07/18/2012 DONTA MATSON PHD 796.2 Elevated Blood Pressure Reading Without Diagnosis Of H ypertension 07/18/2012 [facility] DONTA A V72.85 OTHER SPECIFIED EXAMINATION 07/18/2012 BOEOUT PHD, DONTA A 796.2 Elevated Blood Pressure Reading Without Diagnosis Of H ypertension 07/18/2012 BOESUKHWINDEROUT PHD, DONTA A V72.85 OTHER SPECIFIED EXAMINATION 07/18/2012 BOESUKHWINDEROUT PHD, DONTA A 796.2 Elevated Blood Pressure Reading Without Diagnosis Of H ypertension 07/18/2012 [facility], DONTA A V72.85 OTHER SPECIFIED EXAMINATION 07/18/2012 BOEOUT PHD, DONTA A 796.2 Elevated Blood Pressure Reading Without Diagnosis Of H ypertension 07/18/2012 [facility], DONTA A V72.85 OTHER SPECIFIED EXAMINATION 07/18/2012 HUTCHISON DO, BRYSON K 796.2 Elevated Blood Pressure Reading Without Diagnosis Of Hypertension 07/18/2012 HUTCHISON DO, BRYSON K V72.85 OTHER SPECIFIED EXAMINATION 07/18/2012 HUTCHISON DO, BRYSON K 796.2 Elevated Blood Pressure Reading Without Diagnosis Of Hypertension 07/18/2012 HUTCHISON DO, BRYSON K V72.85 OTHER SPECIFIED EXAMINATION 07/18/2012 HUTCHISON DO, BRYSON K 796.2 Elevated Blood Pressure Reading Without Diagnosis Of Hypertension 07/18/2012 HUTCHISON DO, BRYSON K V72.85 OTHER SPECIFIED EXAMINATION 07/18/2012 HUTCHISON DO, BRYSON K 796.2 Elevated Blood Pressure Reading Without Diagnosis Of Hypertension 07/18/2012 HUTCHISON DO, BRYSON K V72.85 OTHER SPECIFIED EXAMINATION 07/18/2012 HUTCHISON DO, BRYSON K 796.2 Elevated Blood Pressure Reading Without Diagnosis Of Hypertension 07/18/2012 HUTCHISON DO, BRYSON K V72.85 OTHER SPECIFIED EXAMINATION 07/18/2012 HUTCHISON DO, BRYSON K 796.2 Elevated Blood Pressure Reading Without Diagnosis Of Hypertension 07/18/2012 HUTCHISON DO, BRYSON K V72.85 OTHER SPECIFIED EXAMINATION 07/18/2012 HUTCHISON DO, BRYSON K 796.2 Elevated Blood Pressure Reading Without Diagnosis Of Hypertension 07/18/2012 HUTCHISON DO, BRYSON K V72.85 OTHER SPECIFIED EXAMINATION 07/18/2012 HUTCHISON DO, BRYSON K 796.2 Elevated Blood Pressure Reading Without Diagnosis Of Hypertension 07/18/2012 HUTCHISON DO, BRYSON K V72.85 OTHER SPECIFIED EXAMINATION 07/18/2012 HUTCHISON DO, BRYSON K 796.2 Elevated Blood Pressure Reading Without Diagnosis Of Hypertension 07/18/2012 HUTCHISON DO BRYSON K V72.85 OTHER SPECIFIED EXAMINATION 07/18/2012 BRYN GONZALES MD 796.2 Elevated Blood Pressure Reading Without Diagnosis Of Hypertension 07/18/2012 BRYN GONZALES MD V72.85 OTHER SPECIFIED EXAMINATION 07/18/2012 BRYN GONZALES MD 796.2 Elevated Blood Pressure Reading Without Diagnosis Of Hypertension 07/18/2012 BRYN GONZALES MD V72.85 OTHER SPECIFIED EXAMINATION 10/17/2012 HUTCHISON DO BRYSON K 401.1 HYPERTENSION, BENIGN ESSENTIAL 10/17/2012 HUTCHISON DO, BRYSON K 527.7 DISTURBANCE OF SALIVARY SECRETION 10/17/2012 HUTCHISON DO, BRYSON K 780.79 OTHER MALAISE AND FATIGUE 10/17/2012 HUTCHISON DO, BRYSON K 401.1 HYPERTENSION, BENIGN ESSENTIAL 10/17/2012 HUTCHISON DO, BRYSON K 527.7 DISTURBANCE OF SALIVARY SECRETION 10/17/2012 HUTCHISON DO, BRYSON K 780.79 OTHER MALAISE AND FATIGUE 10/17/2012 HUTCHISON DO, BRYSON K 401.1 HYPERTENSION, BENIGN ESSENTIAL 10/17/2012 HUTCHISON DO, BRYSON K 527.7 DISTURBANCE OF SALIVARY SECRETION 10/17/2012 HUTCHISON DO, BRYSON K 780.79 OTHER MALAISE AND FATIGUE 10/17/2012 HUTCHISON DO, BRYSON K 401.1 HYPERTENSION, BENIGN ESSENTIAL 10/17/2012 HUTCHISON DO, BRYSON K 527.7 DISTURBANCE OF SALIVARY SECRETION 10/17/2012 HUTCHISON DO, BRYSON K 780.79 OTHER MALAISE AND FATIGUE 10/17/2012 401.1 HYPE RTENSION, BENIGN ESSENTIAL 10/17/2012 527.7 DIST URBANCE OF SALIVARY SECRETION 10/17/2012 780.79 OTH ER MALAISE AND FATIGUE 10/17/2012 401.1 HYPE RTENSION, BENIGN ESSENTIAL 10/17/2012 527.7 DIST URBANCE OF SALIVARY SECRETION 10/17/2012 780.79 OTH ER MALAISE AND FATIGUE 10/17/2012 401.1 HYPE RTENSION, BENIGN ESSENTIAL 10/17/2012 527.7 DIST URBANCE OF SALIVARY SECRETION 10/17/2012 780.79 OTH ER MALAISE AND FATIGUE 10/17/2012 HUTCHISON DO BRYSON K 401.1 HYPERTENSION, BENIGN ESSENTIAL 10/17/2012 HUTCHISON DO, BRYSON K 527.7 DISTURBANCE OF SALIVARY SECRETION 10/17/2012 HUTCHISON DO, BRYSON K 780.79 OTHER MALAISE AND FATIGUE 10/17/2012 401.1 HYPE RTENSION, BENIGN ESSENTIAL 10/17/2012 527.7 DIST URBANCE OF SALIVARY SECRETION 10/17/2012 780.79 OTH ER MALAISE AND FATIGUE 10/17/2012 401.1 HYPE RTENSION, BENIGN ESSENTIAL 10/17/2012 527.7 DIST URBANCE OF SALIVARY SECRETION 10/17/2012 780.79 OT ER MALAISE AND FATIGUE 10/17/2012 DONTA MATSON PHD 401.1 HYPERTENSION, BENIGN ESSENTIAL 10/17/2012 DONTA MATSON PHD 527.7 DISTURBANCE OF SALIVARY SECRETION 10/17/2012 DONTA MATSON PHD 780.79 OTHER MALAISE AND FATIGUE 10/17/2012 [facility] 401.1 HYPERTENSION, BENIGN ESSENTIAL 10/17/2012 DONTA MATSON PHD 527.7 DISTURBANCE OF SALIVARY SECRETION 10/17/2012 DONTA MATSON PHD 780.79 OTHER MALAISE AND FATIGUE 10/17/2012 SAMMYDONTA CARDOSO PHD 401.1 HYPERTENSION, BENIGN ESSENTIAL 10/17/2012 DONTA MATSON PHD 527.7 DISTURBANCE OF SALIVARY SECRETION 10/17/2012 DONTA MATSON PHD 780.79 OTHER MALAISE AND FATIGUE 10/17/2012 SAMMYDONTA CARDOSO PHD 401.1 HYPERTENSION, BENIGN ESSENTIAL 10/17/2012 DONTA MATSON PHD 527.7 DISTURBANCE OF SALIVARY SECRETION 10/17/2012 DONTA MATSON PHD 780.79 OTHER MALAISE AND FATIGUE 10/17/2012 DONTA MATSON PHD 401.1 HYPERTENSION, BENIGN ESSENTIAL 10/17/2012 DONTA MATSON PHD 527.7 DISTURBANCE OF SALIVARY SECRETION 10/17/2012 DONTA MATSON PHD 780.79 OTHER MALAISE AND FATIGUE 10/17/2012 HUTCHISON DO, BRYSON K 401.1 HYPERTENSION, BENIGN ESSENTIAL 10/17/2012 HUTCHISON DO, BRYSON K 527.7 DISTURBANCE OF SALIVARY SECRETION 10/17/2012 HUTCHISON DO, BRYSON K 780.79 OTHER MALAISE AND FATIGUE 10/17/2012 HUTCHISON DO, BRYSON K 401.1 HYPERTENSION, BENIGN ESSENTIAL 10/17/2012 HUTCHISON DO, BRYSON K 527.7 DISTURBANCE OF SALIVARY SECRETION 10/17/2012 HUTCHISON DO, BRYSON K 780.79 OTHER MALAISE AND FATIGUE 10/17/2012 HUTCHISON DO, BRYSON K 401.1 HYPERTENSION, BENIGN ESSENTIAL 10/17/2012 HUTCHISON DO, BRYSON K 527.7 DISTURBANCE OF SALIVARY SECRETION 10/17/2012 HUTCHISON DO, BRYSON K 780.79 OTHER MALAISE AND FATIGUE 10/17/2012 HUTCHISON DO, BRYSON K 401.1 HYPERTENSION, BENIGN ESSENTIAL 10/17/2012 HUTCHISON DO, BRYSON K 527.7 DISTURBANCE OF SALIVARY SECRETION 10/17/2012 HUTCHISON DO, BYRSON K 780.79 OTHER MALAISE AND FATIGUE 10/17/2012 HUTCHISON DO, BRYSON K 401.1 HYPERTENSION, BENIGN ESSENTIAL 10/17/2012 HUTCHISON DO, BRYSON K 527.7 DISTURBANCE OF SALIVARY SECRETION 10/17/2012 HUTCHISON DO, BRYSON K 780.79 OTHER MALAISE AND FATIGUE 10/17/2012 HUTCHISON DO, BRYSON K 401.1 HYPERTENSION, BENIGN ESSENTIAL 10/17/2012 HUTCHISON DO, BRYSON K 527.7 DISTURBANCE OF SALIVARY SECRETION 10/17/2012 HUTCHISON DO, BRYSON K 780.79 OTHER MALAISE AND FATIGUE 10/17/2012 HUTCHISON DO, BRYSON K 401.1 HYPERTENSION, BENIGN ESSENTIAL 10/17/2012 HUTCHISON DO, BRYSON K 527.7 DISTURBANCE OF SALIVARY SECRETION 10/17/2012 HUTCHISON DO, BRYSON K 780.79 OTHER MALAISE AND FATIGUE 10/17/2012 HUTCHISON DO, BRYSON K 401.1 HYPERTENSION, BENIGN ESSENTIAL 10/17/2012 HUTCHISON DO, BRYSON K 527.7 DISTURBANCE OF SALIVARY SECRETION 10/17/2012 HUTCHISON DO, BRYSON K 780.79 OTHER MALAISE AND FATIGUE 10/17/2012 HUTCHISON DO, BRYSON K 401.1 HYPERTENSION, BENIGN ESSENTIAL 10/17/2012 HUTCHISON DO, BRYSON K 527.7 DISTURBANCE OF SALIVARY SECRETION 10/17/2012 HUTCHISON DO, BRYSON K 780.79 OTHER MALAISE AND FATIGUE 10/17/2012 BRYN GONZALES MD 401.1 HYPERTENSION, BENIGN ESSENTIAL 10/17/2012 BRYN GONZALES MD 527.7 DISTURBANCE OF SALIVARY SECRETION 10/17/2012 BRYN GONZALES MD 780.79 OTHER MALAISE AND FATIGUE 10/17/2012 BRYN GONZALES MD 401.1 HYPERTENSION, BENIGN ESSENTIAL 10/17/2012 BRYN GONZALES MD 527.7 DISTURBANCE OF SALIVARY SECRETION 10/17/2012 BRYN GONZALES MD 780.79 OTHER MALAISE AND FATIGUE 2012 HUTCHISON DO, BRYSON K 790.29 ABNORMAL GLUCOSE 2012 HUTCHISON DO, BRYSON K 790.95 ELEVATED C-REACTIVE PROTEIN (CRP) 2012 HUTCHISON DO, BRYSON K 790.29 ABNORMAL GLUCOSE 2012 HUTCHISON DO, BRYSON K 790.95 ELEVATED C-REACTIVE PROTEIN (CRP) 2012 HUTCHISON DO, BRYSON K 790.29 ABNORMAL GLUCOSE 2012 HUTCHISON DO, BRYSON K 790.95 ELEVATED C-REACTIVE PROTEIN (CRP) 2012 HUTCHISON DO, BRYSON K 790.29 ABNORMAL GLUCOSE 2012 HUTCHISON DO, BRYSON K 790.95 ELEVATED C-REACTIVE PROTEIN (CRP) 2012 790.29 ABN ORMAL GLUCOSE 2012 790.95 WILLIAM VATED C- REACTIVE PROTEIN (CRP) 2012 790.29 ABN ORMAL GLUCOSE 2012 790.95 WILLIAM VATED C- REACTIVE PROTEIN (CRP) 2012 790.29 ABN ORMAL GLUCOSE 2012 790.95 WILLIAM VATED C- REACTIVE PROTEIN (CRP) 2012 HUTCHISON DO, BRYSON K 790.29 ABNORMAL GLUCOSE 2012 HUTCHISON DO, BRYSON K 790.95 ELEVATED C-REACTIVE PROTEIN (CRP) 2012 790.29 ABN ORMAL GLUCOSE 2012 790.95 WILLIAM VATED C- REACTIVE PROTEIN (CRP) 2012 790.29 ABN ORMAL GLUCOSE 2012 790.95 WILLIAM VATED C- REACTIVE PROTEIN (CRP) 2012 DANO BARLOW, DONTA Rider 790.29 ABNORMAL GLUCOSE 2012 DANO BARLOW, DONTA Rider 790.95 ELEVATED C-REACTIVE PROTEIN (CRP) 2012 DANO BARLOW, DONTA Rider 790.29 ABNORMAL GLUCOSE 2012 DANO BARLOW, DONTA Rider 790.95 ELEVATED C-REACTIVE PROTEIN (CRP) 2012 [facility] PHD, DONTA A 790.29 ABNORMAL GLUCOSE 2012 [facility], DONTA A 790.95 ELEVATED C-REACTIVE PROTEIN (CRP) 2012 [facility], DONTA A 790.29 ABNORMAL GLUCOSE 2012 [facility], DONTA A 790.95 ELEVATED C-REACTIVE PROTEIN (CRP) 2012 [facility], DONTA A 790.29 ABNORMAL GLUCOSE 2012 [facility], DONTA A 790.95 ELEVATED C-REACTIVE PROTEIN (CRP) 2012 HUTCHISON DO, BRYSON K 790.29 ABNORMAL GLUCOSE 2012 HUTCHISON DO, BRYSON K 790.95 ELEVATED C-REACTIVE PROTEIN (CRP) 2012 HUTCHISON DO, BRYSON K 790.29 ABNORMAL GLUCOSE 2012 HUTCHISON DO, BRYSON K 790.95 ELEVATED C-REACTIVE PROTEIN (CRP) 2012 HUTCHISON DO, BRYSON K 790.29 ABNORMAL GLUCOSE 2012 HUTCHISON DO, BRYSON K 790.95 ELEVATED C-REACTIVE PROTEIN (CRP) 2012 HUTCHISON DO, BRYSON K 790.29 ABNORMAL GLUCOSE 2012 HUTCHISON DO, BRYSON K 790.95 ELEVATED C-REACTIVE PROTEIN (CRP) 2012 HUTCHISON DO, BRYSON K 790.29 ABNORMAL GLUCOSE 2012 HUTCHISON DO, BRYSON K 790.95 ELEVATED C-REACTIVE PROTEIN (CRP) 2012 HUTCHISON DO, BRYSON K 790.29 ABNORMAL GLUCOSE 2012 HUTCHISON DO, BRYSON K 790.95 ELEVATED C-REACTIVE PROTEIN (CRP) 2012 HUTCHISON DO, BRYSON K 790.29 ABNORMAL GLUCOSE 2012 HUTCHISON DO, BRYSON K 790.95 ELEVATED C-REACTIVE PROTEIN (CRP) 2012 HUTCHISON DO, BRYSON K 790.29 ABNORMAL GLUCOSE 2012 HUTCHISON DO, BRYSON K 790.95 ELEVATED C-REACTIVE PROTEIN (CRP) 2012 HUTCHISON DO, BRYSON K 790.29 ABNORMAL GLUCOSE 2012 HUTCHISON DO, BRYSON K 790.95 ELEVATED C-REACTIVE PROTEIN (CRP) 2012 CHRISTIAN GRAJEDA, BRYN 790.29 ABNORMAL GLUCOSE 2012 CHRISTIAN GRAJEDA, BRYN 790.95 ELEVATED C-REACTIVE PROTEIN (CRP) 2012 CHRISTIAN GRAJEDA, BRYN 790.29 ABNORMAL GLUCOSE 2012 CHRISTIAN GRAJEDA, BRYN 790.95 ELEVATED C-REACTIVE PROTEIN (CRP) 07/08/[address] PAIN 07/08/2013 DANO BARLOW, DONTA Rider 786.50 CHEST PAIN 07/08/2013 DANO BARLOW, DONTA A 786.50 CHEST PAIN 07/08/2013 DANO PHD, DONTA A 786.50 CHEST PAIN 07/08/2013 DANO BARLOW, DONTA A 786.50 CHEST PAIN 07/08/2013 DANO BARLOW, DONTA A 786.50 CHEST PAIN 07/08/2013 HUTCHISON DO, BRYSON K 786.50 CHEST PAIN 07/08/2013 HUTCHISON DO, BRYSON K 786.50 CHEST PAIN 07/08/2013 HUTCHISON DO, BRYSON K 786.50 CHEST PAIN 07/08/2013 HUTCHISON DO, BRYSON K 786.50 CHEST PAIN 07/08/2013 HUTCHISON DO, BRYSON K 786.50 CHEST PAIN 07/08/2013 HUTCHISON DO, BRYSON K 786.50 CHEST PAIN 07/08/2013 HUTCHISON DO, BRYSON K 786.50 CHEST PAIN 07/08/2013 HUTCHISON DO, BRYSON K 786.50 CHEST PAIN 07/08/2013 HUTCHISON DO, BRYSON K 786.50 CHEST PAIN 07/08/2013 CHRISTIAN GRAJEDA, BRYN 786.50 CHEST PAIN 07/08/2013 BRYN GONZALES MD 786.50 CHEST PAIN 07/09/2013 DONTA MATSNO PHD 296.32 MO DEPRESSIVE RECURRENT MODERATE 07/09/2013 DONTA MATSON PHD 296.32 MO DEPRESSIVE RECURRENT MODERATE 07/09/2013 DONTA MATSON PHD 296.32 MO DEPRESSIVE RECURRENT MODERATE 07/09/2013 DONTA MATSON PHD 296.32 MO DEPRESSIVE RECURRENT MODERATE 07/09/2013 DONTA MATSON PHD 296.32 MO DEPRESSIVE RECURRENT MODERATE 07/09/2013 HUTCHISON DO, BRYSON K 296.32 MO DEPRESSIVE RECURRENT MODERATE 07/09/2013 HUTCHISON DO, BRYSON K 296.32 MO DEPRESSIVE RECURRENT MODERATE 07/09/2013 HUTCHISON DO, BRYSON K 296.32 MO DEPRESSIVE RECURRENT MODERATE 07/09/2013 HUTCHISON DO, BRYSON K 296.32 MO DEPRESSIVE RECURRENT MODERATE 07/09/2013 HUTCHISON DO, BRYSON K 296.32 MO DEPRESSIVE RECURRENT MODERATE 07/09/2013 HUTCHISON DO, BRYSON K 296.32 MO DEPRESSIVE RECURRENT MODERATE 07/09/2013 HUTCHISON DO, BRYSON K 296.32 MO DEPRESSIVE RECURRENT MODERATE 07/09/2013 HUTCHISON DO, BRYSON K 296.32 MO DEPRESSIVE RECURRENT MODERATE 07/09/2013 HUTCHISON DO, BRYSON K 296.32 MO DEPRESSIVE RECURRENT MODERATE 07/09/2013 BRYN GONZALES MD 296.32 MO DEPRESSIVE RECURRENT MODERATE 07/09/2013 BRYN GONZALES MD 296.32 MO DEPRESSIVE RECURRENT MODERATE 12/11/2014 BRYN GONZALES MD 272.4 HYPERLIPIDEMIA 12/11/2014 BRYN GONZALES MD 401.9 HYPERTENSION, UNSPECIFIED ESSENTIAL 12/11/2014 BRYN GONZALES MD 272.4 HYPERLIPIDEMIA 12/11/2014 BRYN GONZALES MD 401.9 HYPERTENSION, UNSPECIFIED ESSENTIAL 01/11/2015 Ot 790.95 01/11/2015 Ot 272.4 01/11/2015 Ot 401.9 01/11/2015 Ot 414.00 01/11/2015 Ot 272.4 01/11/2015 Ot 401.9 01/11/2015 Ot 414.00 01/11/2015 Ot 272.4 01/11/2015 Ot 401.9 01/11/2015 Ot 414.00 01/19/2015 Ot 272.4 01/19/2015 Ot 401.9 01/19/2015 Ot 414.00 01/19/2015 Ot 272.4 01/19/2015 Ot 401.9 01/19/2015 Ot 414.00 01/29/2015 BRYN GONZALES MD 786.09 DYSPNEA 03/19/2016 Ot 790.95 WILLIAM VATED C- REACTIVE PROTEIN (CRP) 03/19/2016 Ot 272.4 HYPE RLIPIDEMIA NEC/NOS 03/19/2016 Ot 401.9 HYPE RTENSION NOS 03/19/2016 Ot 414.00 COR ON ATHEROSCLER NOS TYPE VESSEL, NATIV 03/19/2016 Ot 272.4 HYPE RLIPIDEMIA NEC/NOS 03/19/2016 Ot 401.9 HYPE RTENSION NOS 03/19/2016 Ot 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 2 OLD MYOCARDIAL INFARCTION 03/20/2016 SAUNDRA OLIVARES MD Ot Z95. 5 PRESENCE OF CORONARY ANGIOPLASTY IMPLANT 03/21/2016 Ot 790.95 WILLIAM VATED C- REACTIVE PROTEIN (CRP) 03/21/2016 Ot 272.4 HYPE RLIPIDEMIA NEC/NOS 03/21/2016 Ot 401.9 HYPE RTENSION NOS 03/21/2016 Ot 414.00 COR ON ATHEROSCLER NOS TYPE VESSEL, NATIV 03/21/2016 Ot 272.4 HYPE RLIPIDEMIA NEC/NOS 03/21/2016 Ot 401.9 HYPE RTENSION NOS 03/21/2016 Ot 414.00 COR ON ATHEROSCLER NOS TYPE VESSEL, NATIV 04/11/2016 Ot 790.95 WILLIAM VATED C- REACTIVE PROTEIN (CRP) 04/11/2016 Ot 272.4 HYPE RLIPIDEMIA NEC/NOS 04/11/2016 Ot 401.9 HYPE RTENSION NOS 04/11/2016 Ot 414.00 COR ON ATHEROSCLER NOS TYPE VESSEL, NATIV 04/11/2016 Ot 272.4 HYPE RLIPIDEMIA NEC/NOS 04/11/2016 Ot 401.9 HYPE RTENSION NOS 04/11/2016 Ot 414.00 COR ON ATHEROSCLER NOS TYPE VESSEL, NATIV 04/11/2016 Ot 790.95 WILLIAM VATED C- REACTIVE PROTEIN (CRP) 04/11/2016 Ot 272.4 HYPE RLIPIDEMIA NEC/NOS 04/11/2016 Ot 401.9 HYPE RTENSION NOS 04/11/2016 Ot 414.00 COR ON ATHEROSCLER NOS TYPE VESSEL, NATIV 04/11/2016 Ot 272.4 HYPE RLIPIDEMIA NEC/NOS 04/11/2016 Ot 401.9 HYPE RTENSION NOS 04/11/2016 Ot 414.00 COR ON ATHEROSCLER NOS TYPE VESSEL, NATIV 04/14/2016 Ot 790.95 WILLIAM VATED C- REACTIVE PROTEIN (CRP) 04/14/2016 Ot 272.4 HYPE RLIPIDEMIA NEC/NOS 04/14/2016 Ot 401.9 HYPE RTENSION NOS 04/14/2016 Ot 414.00 COR ON ATHEROSCLER NOS TYPE VESSEL, NATIV 04/14/2016 Ot 272.4 HYPE RLIPIDEMIA NEC/NOS 04/14/2016 Ot 401.9 HYPE RTENSION NOS 04/14/2016 Ot 414.00 COR ON ATHEROSCLER NOS TYPE VESSEL, NATIV 04/25/2016 Ot 790.95 WILLIAM VATED C- REACTIVE PROTEIN (CRP) 04/25/2016 Ot 272.4 HYPE RLIPIDEMIA NEC/NOS 04/25/2016 Ot 401.9 HYPE RTENSION NOS 04/25/2016 Ot 414.00 COR ON ATHEROSCLER NOS TYPE VESSEL, NATIV 04/25/2016 Ot 272.4 HYPE RLIPIDEMIA NEC/NOS 04/25/2016 Ot 401.9 HYPE RTENSION NOS 04/25/2016 Ot 414.00 COR ON ATHEROSCLER NOS TYPE VESSEL, NATIV 01/14/2020 Ot 272.4 HYPE RLIPIDEMIA NEC/NOS 01/14/2020 Ot 401.9 HYPE RTENSION NOS 01/14/2020 Ot 414.00 COR ON ATHEROSCLER NOS TYPE VESSEL, NATIV 01/14/2020 Ot 272.4 HYPE RLIPIDEMIA NEC/NOS 01/14/2020 Ot 401.9 HYPE RTENSION NOS 01/14/2020 Ot 414.00 COR ON ATHEROSCLER NOS TYPE VESSEL, NATIV Procedures Code Description [place] [address] ROUT INE VENIPUNCTURE 10/17/2012 03833 TEST OSTERONE FREE 10/17/2012 03551 CARD IOVASCULAR STRESS TEST 10/17/2012 64688 ESR/ SED RATE 10/17/2012 99434 CMP 10/17/2012 11947 LIPI D PANEL 10/17/2012 5231560 GF R CALC (RESULT ONLY) 10/17/2012 25274 VIT B 12 10/18/2012 60804 FOLATE 10/18/2012 55375 CRP 10/18/2012 34182 CRP HS (CARDIO) 10/18/2012 17921 BNP 10/18/2012 71526 ROUT INE VENIPUNCTURE 10/21/2012 40363 A1C (IN-HOUSE) 10/21/2012 96068 LIPI D PANEL 10/21/2012 13718 ROUT INE VENIPUNCTURE 11/14/2012 24651 LIPI D PANEL 11/14/2012 49783 CMP 07/08/2013 88845 LIPI D PANEL 07/08/2013 59087 PSYC H DIAGNOSTIC EVALUATION 07/10/2013 70438 PSYT X PT&/FAMILY 45 MINUTES 08/13/2013 81499 PSYT X PT&/FAMILY 45 MINUTES 09/03/2013 47569 PSYT X PT&/FAMILY 45 MINUTES 09/24/2013 32697 PSYT X PT&/FAMILY 45 MINUTES 10/21/2013 70538 ROUT INE VENIPUNCTURE 12/30/2013 92116 CMP 12/30/2013 57315 LIPI D PANEL 12/30/2013 2107861 GF R CALC (RESULT ONLY) 12/30/2013 13027 CAPI LLARY BLOOD DRAW 01/05/2014 46580 A1C (IN-HOUSE) 01/05/2014 33032 ROUT INE VENIPUNCTURE 05/18/2014 97049 BMP 05/18/2014 62637 EKG, TRACING (IN-HOUSE) 10/27/2014 90095 ROUT INE VENIPUNCTURE 10/27/2014 45788 CMP 10/27/2014 09313 LIPI D PANEL 10/27/2014 63091 MAGNESIUM 10/27/2014 15842 TSH 10/27/2014 66288 CBC 10/27/2014 CARDIOLOG BRYN GONZALES 10/27/2014 Results Test Result Range CBC With Differential/Platelet - 6 11:09 WBC 5.3 x10E3/uL 3.4-10.8 RBC 5.36 x10E6/uL 4.14-5.80 Hemoglobin 17.0 g/dL 12.6-17.7 Hematocrit 47.9 % 37.5-51.0 MCV 89 fL 79-97 MCH 31.7 pg 26.6-33.0 MCHC 35.5 g/dL 31.5-35.7 RDW 14.1 % 12.3-15.4 Platelets 171 x10E3/uL 150-379 Neutrophils 61 % Lymphs 28 % Monocytes 8 % Eos 2 % Basos 1 % Neutrophils (Absolute) 3.2 x10E3/uL 1.4- 7.0 Lymphs (Absolute) 1.5 x10E3/uL 0.7-3.1 Monocytes(Absolute) 0.4 x10E3/uL 0.1-0.9 Eos (Absolute) 0.1 x10E3/uL 0.0-0.4 Baso (Absolute) 0.1 x10E3/uL 0.0-0.2 Immature Granulocytes 0 % Immature Grans (Abs) 0.0 x10E3/uL 0.0-0. 1 Comp. Metabolic Panel (14) - 07/31/16 11 :09 Glucose, Serum 127 mg/dL 65-99 BUN 15 mg/dL 6-24 Creatinine, Serum 0.93 mg/dL 0.76-1.27 eGFR If NonAfricn Am 90 mL/min/1.73 >59 eGFR If Africn Am 104 mL/min/1.73 >5 9 BUN/Creatinine Ratio 16 9-20 Sodium, Serum 139 mmol/L 134-144 Potassium, Serum 4.4 mmol/L 3.5-5.2 Chloride, Serum 105 mmol/L 97-108 Carbon Dioxide, Total 21 mmol/L 18-29 Calcium, Serum 9.3 mg/dL 8.7-10.2 Protein, Total, Serum 7.0 g/dL 6.0-8.5 Albumin, Serum 4.4 g/dL 3.5-5.5 Globulin, Total 2.6 g/dL 1.5-4.5 A/G Ratio 1.7 1.1-2.5 Bilirubin, Total 0.5 mg/dL 0.0-1.2 Alkaline Phosphatase, S 58 IU/L 39-117 AST (SGOT) 41 IU/L 0-40 ALT (SGPT) 49 IU/L 0-44 Lipid Panel - 07/31/16 11:09 Cholesterol, Total 208 mg/dL 100-199 Triglycerides 140 mg/dL 0-149 HDL Cholesterol 39 mg/dL >39 VLDL Cholesterol Claudio 28 mg/dL 5-40 LDL Cholesterol Calc 141 mg/dL 0-99 C-Reactive Protein, Cardiac - 07/31/16 1 1:09 C-Reactive Protein, Cardiac 6.57 mg/L 0. 00-3.00 CMP - 11/22/18 12:21 GLUCOSE 150 mg/dL 65-99 UREA NITROGEN (BUN) 15 mg/dL 7-25 CREATININE 0.88 mg/dL 0.70-1.25 eGFR NON-AFR. MOLDOVAN 92 mL/min/1.73m2 > OR = 60 eGFR 107 mL/min/1.73m2 > OR = 60 BUN/CREATININE RATIO NOT APPLICABLE (calc) 6-22 SODIUM 139 mmol/L 135-146 POTASSIUM 4.2 mmol/L 3.5-5.3 CHLORIDE 106 mmol/L 98-110 CARBON DIOXIDE 23 mmol/L 20-32 CALCIUM 9.0 mg/dL 8.6-10.3 PROTEIN, TOTAL 7.1 g/dL 6.1-8.1 ALBUMIN 4.4 g/dL 3.6-5.1 GLOBULIN 2.7 g/dL (calc) 1.9-3.7 ALBUMIN/GLOBULIN RATIO 1.6 (calc) 1.0-2. 5 BILIRUBIN, TOTAL 0.9 mg/dL 0.2-1.2 ALKALINE PHOSPHATASE 50 U/L 40-115 AST 28 U/L 10-35 ALT 30 U/L 9-46 Complete blood count (CBC) with automate d white blood cell (WBC) differential - 01/14/20 17:21 Blood leukocytes automated count (number/volume) 7.9 10*3/uL 4.3-11.0 Blood erythrocytes automated count (number/volume) 5.48 10*6/uL 4.35-5.85 Venous blood hemoglobin measurement (mass/volume) 17.5 g/dL 13.3-17.7 Blood hematocrit (volume fraction) 49 % 40-54 Automated erythrocyte mean corpuscular volume 89 [ foz_us] 80-99 Automated erythrocyte mean corpuscular h emoglobin (mass per erythrocyte) 32 pg 25-34 Automated erythrocyte mean corpuscular h emoglobin concentration measurement (mass/volume) 36 g/dL 32-36 Automated erythrocyte distribution width ratio 13. 2 % 10.0- 14.5 Automated blood platelet count (count/volume) 171 10*3/uL 130-400 Automated blood platelet mean volume measurement 9.8 [foz_us] 7.4-10.4 Automated blood neutrophils/100 leukocytes 81 % 42-75 Automated blood lymphocytes/100 leukocytes 13 % 12-44 Blood monocytes/100 leukocytes 5 % 0-12 Automated blood eosinophils/100 leukocytes 1 % 0-10 Automated blood basophils/100 leukocytes 0 % 0-10 Blood neutrophils automated count (number/volume) 6.4 10*3 1.8-7.8 Blood lymphocytes automated count (number/volume) 1.0 10*3 1.0-4.0 Blood monocytes automated count (number/volume) 0. 4 10*3 0.0-1.0 Automated eosinophil count 0.0 10*3/uL 0 .0-0.3 Automated blood basophil count (count/volume) 0.0 10*3/uL 0.0-0.1 PT panel in platelet poor plasma by coag ulation assay - 01/14/20 17:21 Prothrombin time (PT) in platelet poor plasma by coagu lation assay 13.5 s 12.2-14.7 INR in platelet poor plasma or blood by coagulation as say 1.0 0.8-1.4 Activated partial thromboplastin time (a PTT) in platelet poor plasma bycoagulation assay - 01/14/20 17:21 Activated partial thromboplastin time (a PTT) in platelet poor plasma bycoagulation assay 27 s 24-35 Comprehensive metabolic panel - 01/14/20 17:21 Serum or plasma sodium measurement (moles/volume) 135 mmol/L 135-145 Serum or plasma potassium measurement (moles/volume) 4.2 mmol/L 3.6-5.0 Serum or plasma chloride measurement (moles/volume) 102 mmol/L 98-107 Carbon dioxide 19 mmol/L 21-32 Serum or plasma anion gap determination (moles/volume) 14 mmol/L 5-14 Serum or plasma urea nitrogen measurement (mass/volume ) 16 mg/dL 7-18 Serum or plasma creatinine measurement (mass/volume) 1.18 mg/dL 0.60-1.30 Serum or plasma urea nitrogen/creatinine mass ratio 14 NRG Serum or plasma creatinine measurement w ith calculation of estimated glomerular filtration rate > NRG Serum or plasma glucose measurement (mass/volume) 189 mg/dL 70-105 Serum or plasma calcium measurement (mass/volume) 10.1 mg/dL 8.5-10.1 Serum or plasma total bilirubin measurement (mass/volu me) 0.9 mg/dL 0.1-1.0 Serum or plasma alkaline phosphatase dominic surement (enzymatic activity/volume) 55 U/L 40-136 Serum or plasma aspartate aminotransfera se measurement (enzymatic activity/volume) 28 U/L 5-34 Serum or plasma alanine aminotransferase measurement (enzymatic activity/volume) 31 U/L 0-55 Serum or plasma protein measurement (mass/volume) 7.5 g/dL 6.4-8.2 Serum or plasma albumin measurement (mass/volume) 4.4 g/dL 3.2-4.5 CALCIUM CORRECTED 9.8 mg/dL 8.5-10.1 Magnesium - 01/14/20 17:21 Magnesium 1.4 mg/dL 1.6-2.4 Myoglobin, serum - 01/14/20 17:21 Myoglobin, serum 73.4 ng/mL 10.0-92.0 Serum or plasma troponin i.cardiac measu rement (mass/volume) - 01/14/20 17:21 Serum or plasma troponin i.cardiac measurement (mass/v olume) < ng/mL <0.028 Serum or plasma lithium measurement (mol es/volume) - 01/14/20 17:21 BNP PT < 10.0 <100.0 Encounters ACCT No. Visit Date/Time Discharge Status Pt. Type Provider Facility Loc./Unit Complaint [id number] 01/29/2015 10:07:00 01/29/2015 23:59: 59 CLS Outpatient BRYN GONZALES MD [id number] 11/30/2014 00:00:00 11/30/2014 23:59: 59 CLS Outpatient BRYN GONZALES MD [id number] 10/27/2014 11:04:00 10/27/2014 23:59: 59 CLS Outpatient KIANNA DOBRYSON [id number] 08/19/2014 00:00:00 08/19/2014 23:59: 59 CLS Outpatient HUTCHISON DOBRYSON [id number] 08/06/2014 12:50:00 08/06/2014 23:59: 59 CLS Outpatient KIANNA DOBRYSON [id number] 08/04/2014 15:52:00 08/04/2014 23:59: 59 CLS Outpatient KIANNA DOBRYSON [id number] 05/18/2014 14:34:00 05/18/2014 23:59: 59 CLS Outpatient KIANNA DOBRYSON [id number] 02/06/2014 13:23:00 02/06/2014 23:59: 59 CLS Outpatient HUTCHISON DOBRYSON [id number] 01/05/2014 14:52:00 01/05/2014 23:59: 59 CLS Outpatient HUTCHISON DOBRYSON [id number] 12/30/2013 12:06:00 12/30/2013 23:59: 59 CLS Outpatient HUTCHISON DOBRYSON [id number] 11/07/2013 15:27:00 11/07/2013 23:59: 59 CLS Outpatient HUTCHISON DOBRYSON [id number] 2013 12:51:00 2013 23:59: 59 CLS Outpatient DONTA MATSON PHD [facility] [id number] 09/23/2013 12:49:00 09/23/2013 23:59: 59 CLS Outpatient DONTA MATSON PHD [facility] [id number] 09/02/2013 12:54:00 09/02/2013 23:59: 59 CLS Outpatient DONTA MATSON PHD [facility] [id number] 08/12/2013 12:53:00 08/12/2013 23:59: 59 CLS Outpatient DONTA MATSON PHD [facility] [id number] 07/09/2013 10:56:00 07/09/2013 23:59: 59 CLS Outpatient DONTA MATSON PHD [facility] [id number] 01/02/2013 10:35:00 01/02/2013 23:59: 59 CLS Outpatient BRYSON HUTCHISON DO [id number] 12/19/2012 11:02:00 12/19/2012 23:59: 59 CLS Outpatient [id number] 11/28/2012 09:57:00 11/28/2012 23:59: 59 CLS Outpatient [id number] 11/14/2012 08:43:00 11/14/2012 23:59: 59 CLS Outpatient BRYSON HUTCHISON DO [id number] 11/07/2012 08:24:00 11/07/2012 23:59: 59 CLS Outpatient BRYSON HUTCHISON DO [id number] 11/01/2012 00:00:00 11/01/2012 23:59: 59 CLS Outpatient [id number] 10/21/2012 10:49:00 10/21/2012 23:59: 59 CLS Outpatient BRYSON HUTCHISON DO [id number] 10/17/2012 10:00:00 10/17/2012 23:59: 59 CLS Outpatient BRYSON HUTCHISON DO [id number] 07/18/2012 08:18:00 07/18/2012 23:59: 59 CLS Outpatient [id number] 07/08/2013 10:08:00 Document Registration [id number] 03/19/2013 10:24:00 Document Registration [id number] 01/16/2019 15:00:00 01/16/2019 23:59:5 9 CLS Outpatient LUCIAN[facility] [id number] 11/22/2018 11:40:00 Document Registration [id number] 01/14/2020 16:54:00 020 18:35:00 DIS Emergency JEANNETTE GRAJEDA, DARRELL [facility] ER CP [id number] 03/19/2016 19:32:00 13:05:00 DIS Inpatient ELISE GRAJEDA, SAUNDRA Chirinos [facility] ICU ACUTE ANGINAL SYMPTOMS [id number] 12/29/2014 11:34:00 Document Registration [id number] 12/23/2014 13:23:00 Document Registration [id number] 10/25/2012 08:40:00 Document Registration [id number] 03/11/2012 16:23:00 Document Registration [id number] 07/29/2011 14:26:00 Document Registration [id number] 06/27/2010 17:56:00 Document Registration [id number] 08/01/2016 13:05:00 Document Registration
== END 2020-01-14 18:35 | disposition left against medical advice (07) ==
LOC: EDUNIT# 16:53 → ER 16:54
DX: I25.110 Atherosclerotic heart disease of native coronary artery with unstable angina pectoris (principal); F17.210 Nicotine dependence, cigarettes, uncomplicated; I08.1 Rheumatic disorders of both mitral and tricuspid valves; K21.9 Gastro-esophageal reflux disease without esophagitis; M54.9 Dorsalgia, unspecified; M19.91 Primary osteoarthritis, unspecified site; I25.2 Old myocardial infarction; Z95.5 Presence of coronary angioplasty implant and graft
CPT/HCPCS: 36415; 71045; 80053; 83735; 83874; 83880; 84484; 85025; 85610; 85730; 93005

== ENCOUNTER 2021-08-20 15:46 | Observation (INO) | payer OTHER ==
[~2021-08-20] VITALS: Ht 177 cm; Wt 108.4 kg
[2021-08-20 15:59] LABS: BASOPHILS # (AUTO) 0.1 10^3/uL (0.0-0.1); BASOPHILS % (AUTO) 1 % (0-10); EOSINOPHILS # (AUTO) 0.1 10^3/uL (0.0-0.3); EOSINOPHILS % (AUTO) 1 % (0-10); HEMATOCRIT 48 % (40-54); HEMOGLOBIN 16.3 g/dL (13.3-17.7); LYMPHOCYTES # (AUTO) 1.9 10^3/uL (1.0-4.0); LYMPHOCYTES % (AUTO) 22 % (12-44); MEAN CORPUSCULAR HEMOGLOBIN 32 pg (25-34); MEAN CORPUSCULAR HGB CONC 34 g/dL (32-36); MEAN CORPUSCULAR VOLUME 93 fL (80-99); MEAN PLATELET VOLUME 9.5 fL (9.0-12.2); MONOCYTES # (AUTO) 0.6 10^3/uL (0.0-1.0); MONOCYTES % (AUTO) 7 % (0-12); NEUTROPHILS # (AUTO) 5.9 10^3/uL (1.8-7.8); NEUTROPHILS % (AUTO) 69 % (42-75); PLATELET COUNT 175 10^3/uL (130-400); WHITE BLOOD COUNT 8.6 10^3/uL (4.3-11.0)
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
[2021-08-20 16:12] LABS: CHLORIDE 100 MMOL/L (98-107); POTASSIUM 4.5 MMOL/L (3.6-5.0); SODIUM 135 MMOL/L (135-145)
[2021-08-20 16:14] LABS: CALCIUM 9.4 MG/DL (8.5-10.1); GLUCOSE 213 MG/DL (70-105)
[2021-08-20 16:15] LABS: CARBON DIOXIDE 22 MMOL/L (21-32)
[2021-08-20] MEDS ORDERED: morphine INJ 10 MG/ML 1ML (SYR OR VIAL) IVP STA (16:15)
[2021-08-20] MEDS ORDERED: ENOXAPARIN 100 MG/1 ML (LOVENOX) SYR SC ONE (16:15)
[2021-08-20 16:18] LABS: CREATININE SERUM 1.09 MG/DL (0.60-1.30); GFR ESTIMATED 68
[2021-08-20 16:19] LABS: BUN/CREATININE RATIO 15
[2021-08-20 16:20] LABS: CREATINE KINASE 102 U/L (30-200)
--- NOTE | 2021-08-20 16:25 | Diagnostic Imaging Report ---
Clinical indication: Patient with chest pain. Exam: Portable chest x-ray upright view. Comparisons: Chest x-ray dated 01/14/2020. Findings: Lungs/pleura: Lungs are clear. There is no pneumothorax. There is no pleural effusion. Mediastinum: Unremarkable. Pulmonary vasculature: Unremarkable. Heart: Unremarkable. Bones/extrathoracic soft tissue: Unremarkable. Impression: There is no radiographic evidence of acute cardiopulmonary process. Dictated by: Dictated on workstation # [id number]
[2021-08-20 18:07] VITALS: BP 128/82
[2021-08-20] MEDS ORDERED: RT-ALBUTEROL SULF 2.5 MG/3 ML PRE-MIX VIAL INH PRN (18:15)
[2021-08-20] MEDS ORDERED: DOCUSATE SODIUM 100 MG (COLACE) CAP PO PRN (21:00)
[2021-08-20] MEDS ORDERED: LOPERAMIDE 2 MG (IMODIUM) TABLET PO PRN (21:00)
[2021-08-20] MEDS ORDERED: morphine INJ 10 MG/ML 1ML (SYR OR VIAL) IVP PRN (21:00)
[2021-08-20] MEDS ORDERED: ONDANSETRON 4 MG (ZOFRAN) ORAL DISSOLVE TAB PO PRN (21:00)
[2021-08-20] MEDS ORDERED: ACETAMINOPHEN 500 MG TAB (TYLENOL) PO PRN (21:00)
[2021-08-20] MEDS ORDERED: HYDROcodone/APAP 5 MG/325 MG (LORTAB) TAB PO PRN (21:00)
[2021-08-20] MEDS ORDERED: ONDANSETRON 4 MG/2 ML (SDV) Z0FRAN IVP PRN (21:00)
[2021-08-20] MEDS ORDERED: CALCIUM CARBONATE 500 MG (TUMS) TAB.CHEW PO PRN (21:00)
[2021-08-20] MEDS ORDERED: ALPRAZolam 0.25 MG (XANAX) TAB PO PRN (21:00)
[2021-08-20] MEDS ORDERED: MELATONIN 3 MG TABLET PO PRN (21:00)
[2021-08-20] MEDS ORDERED: diphenhydrAMINE 25 MG TAB (BENADRYL) PO PRN (21:00)
[2021-08-20] MEDS ORDERED: CATHETER FLUSH 10 ML SYR IV PRN (21:30)
[2021-08-20] MEDS ORDERED: NITROGLYCERIN 0.4 MG SL TABS BTL 25'S SL PRN (21:30)
[2021-08-20] MEDS: polyethylene glycoL POWDER 17 GM (MIRALAX) PACK PO SCH (21:53)
[2021-08-20] MEDS: SENNA W/DOCUSATE (SENOKOT S) TABLET PO SCH (21:54)
[2021-08-20] MEDS: CATHETER FLUSH 10 ML SYR IV SCH (21:54)
[2021-08-21 04:57] LABS: BASOPHILS # (AUTO) 0.1 10^3/uL (0.0-0.1); BASOPHILS % (AUTO) 1 % (0-10); EOSINOPHILS # (AUTO) 0.1 10^3/uL (0.0-0.3); EOSINOPHILS % (AUTO) 1 % (0-10); HEMATOCRIT 48 % (40-54); HEMOGLOBIN 16.3 g/dL (13.3-17.7); LYMPHOCYTES # (AUTO) 2.2 10^3/uL (1.0-4.0); LYMPHOCYTES % (AUTO) 30 % (12-44); MEAN CORPUSCULAR HEMOGLOBIN 32 pg (25-34); MEAN CORPUSCULAR HGB CONC 34 g/dL (32-36); MEAN CORPUSCULAR VOLUME 92 fL (80-99); MEAN PLATELET VOLUME 9.7 fL (9.0-12.2); MONOCYTES # (AUTO) 0.5 10^3/uL (0.0-1.0); MONOCYTES % (AUTO) 7 % (0-12); NEUTROPHILS # (AUTO) 4.4 10^3/uL (1.8-7.8); NEUTROPHILS % (AUTO) 60 % (42-75); PLATELET COUNT 170 10^3/uL (130-400); WHITE BLOOD COUNT 7.4 10^3/uL (4.3-11.0)
[2021-08-21 05:12] LABS: ALBUMIN 3.9 GM/DL (3.2-4.5); POTASSIUM 4.5 MMOL/L (3.6-5.0)
[2021-08-21 05:14] LABS: CALCIUM 9.2 MG/DL (8.5-10.1)
[2021-08-21 05:15] LABS: TOTAL PROTEIN 6.9 GM/DL (6.4-8.2)
[2021-08-21 05:18] LABS: CREATININE SERUM 0.84 MG/DL (0.60-1.30)
--- NOTE | 2021-08-21 05:42 | History & Physical-Hospitalist ---
History of Present Illness HPI/Chief Complaint Chief complaint: Chest pain History of present illness: This is a 65-year-old white male with prior history of CAD and stents who presented to the ER with complaints of chest pain. The pain has been gradual last couple of months during his campaign to become [place], [place]. Due to prior history of stents cardiac catheterization was recommended and he reluctantly agreed. At this current time patient denies any pain. at the bedside. Check meds and labs. He does not use oxygen or CPAP at home. Source: patient, family Exam Limitations: no limitations Date Seen 08/21/21 Time Seen by a Provider: 11:30 Attending Physician Lili Welch DO [facility] Referring Physician Date of Admission Aug 20, 2021 at 16:48 Home Medications & Allergies Home Medications Reviewed patient Home Medication Reconciliation performed by pharmacy medication reconciliations wafer fabrication technician and/or nursing. Patients Allergies have been reviewed. Allergies Allergies Coded Allergies No Known Drug Allergies (Unverified06/27/10) Past Rmhwjpl-Zuxfmc-Quzwgp Hx Patient Social History Marrital Status: Employed/Student: retired Tobacco Use?: Yes Tobacco type used: Cigars Smoking Status: Former Smoker Use of E-Cig and/or Vaping dev: No Substance use?: No Alcohol Use?: Yes Alcohol type: Hard Liquor Alcohol Frequency: Several times a month Pt feels they are or have been: No Immunizations Up To Date First/Initial COVID19 Vaccinat: NONE Second COVID19 Vaccination Al: NONE Current Status Advance Directives: No Advance Directive Location: Home Communicates: Verbally Primary Language: Serbian Preferred Spoken Language: Serbian Is interpretation needed?: No Implanted or Applied Medical D: Stents Past Medical History Surgeries: Coronary Stent Currently Using CPAP: No Currently Using BIPAP: No Coronary Artery Disease, Heart Attack Sexually Transmitted Disease: No Gastroesophageal Reflux Arthritis, Back Injury Cataract Loss of Vision: Denies Hearing Impairment: Hard of Hearing Blood Disorders: No Family Medical History Cardiovascular disease 19 MOTHER Dementia 19 MOTHER FH: brain tumor 19 FATHER Myocardial infarction Review of Systems Constitutional: see HPI EENTM: no symptoms reported Respiratory: no symptoms reported Cardiovascular: chest pain Gastrointestinal: no symptoms reported Genitourinary: no symptoms reported Musculoskeletal: back pain Skin: no symptoms reported Psychiatric/Neurological: No Symptoms Reported All Other Systems Reviewed Negative Unless Noted: Yes Physical Exam Physical Exam Vital Signs Vital Signs - First Documented 08/20/21 08/20/21 15:46 18:07 Temp 35.9 Pulse 64 Resp 22 B/P (MAP) 128/82 (97) Pulse Ox 96 O2 Delivery Room Air FiO2 21 Capillary Refill : Less Than 3 Seconds Height, Weight, BMI Height: 5'9.00" Weight: 245lbs. 2.4oz. 111.059277pk; 34.02 BMI Method:Estimated General Appearance: No Apparent Distress, Obese Eyes: Right Eye Normal Inspection, Right Eye PERRL HEENT: PERRL/EOMI, Normal ENT Inspection, Pharynx Normal, Moist Mucous Membranes Neck: Full Range of Motion, Normal Inspection, Non Tender Respiratory: Chest Non Tender, Lungs Clear, Normal Breath Sounds, No Accessory Muscle Use, No Respiratory Distress Cardiovascular: Regular Rate, Rhythm, No Edema, No Gallop, No JVD, No Murmur, Normal Peripheral Pulses Gastrointestinal: Normal Bowel Sounds, No Organomegaly, No Pulsatile Mass, Non Tender, Soft Back: Normal Inspection, No CVA Tenderness, No Vertebral Tenderness Extremity: Normal Capillary Refill, Normal Inspection, Normal Range of Motion, Non Tender, No Calf Tenderness, No Pedal Edema Neurologic/Psychiatric: Alert, Oriented x3, No Motor/Sensory Deficits, Normal Mood/Affect Skin: Normal Color, Warm/Dry Lymphatic: No Adenopathy Results Results/Procedures Labs Laboratory Tests 08/20/21 15:49 08/21/21 04:40 Patient resulted labs reviewed. Assessment/Plan Admission Diagnosis Assessment: Chest pain CAD previous stents Former smoker Plan: Cardiac cath Appreciate cardiology Admission Status: Observation Diagnosis/Problems Diagnosis/Problems (1) Unstable angina Status: Acute Clinical Quality Measures AMI/AHF: ASA po Prior to arrival: Yes LILI WELCH DO Aug 21, 2021 05:42
[2021-08-21] MEDS ORDERED: ENOXAPARIN 100 MG/1 ML (LOVENOX) SYR SC SCH (06:00)
[2021-08-21] MEDS: CATHETER FLUSH 10 ML SYR IV SCH ×2 (06:10→08:33)
[2021-08-21] MEDS: polyethylene glycoL POWDER 17 GM (MIRALAX) PACK PO SCH (08:32)
[2021-08-21] MEDS: SENNA W/DOCUSATE (SENOKOT S) TABLET PO SCH (08:32)
[2021-08-21] MEDS ORDERED: ASPIRIN 81 MG CHEW (CHILDREN'S ASA) PO SCH (09:00)
--- NOTE | 2021-08-21 10:14 | Consultation-Cardiology ---
HPI-Cardiology Cardiology Consultation: Date of Consultation 08/21/2021 Date of Admission 08/21/2021 Attending Physician Lili Welch DO Admitting Physician [place] Consulting Physician FARTUN CISSE JR, MD HPI: Time Seen by a Provider: 10:13 Chief Complaint: Reason for consultation: Chest pain. I had the pleasure of seeing Jose Francisco on the cardiac stepdown unit at [facility] in [place], [place] this morning. He has a known history of coronary artery disease with previous stents in his left anterior descending coronary artery in 2009 followed by what sounds like was late stent thrombosis in 2011 treated with angioplasty to the previously placed stents, hyperlipidemia, cigar smoking, and obesity. He was previously following with one of my partners, Dr. Gross. However, when the pandemic hit, he had not returned for follow-up. He was well until yesterday when he was doing some yard work and developed left shoulder and arm pain. He took 1 sublingual nitroglycerin and his arm pain improved. He went back to the yard work but then the the arm pain returned. He took another nitroglycerin and the pain resolved. He then finished up working and went inside and while he was sitting in a chair he developed recurrent left arm pain that radiated to his chest. At that point, he asked his to bring him to the emergency room. He took a third nitroglycerin prior to leaving his house and another one in his car. He still has some residual chest and arm discomfort when he arrived. He was given some additional medication in the emergency room and his chest and arm pain finally resolved. This has not recurred. He denies any associated symptoms. He denies dyspnea, paroxysmal nocturnal dyspnea, orthopnea, palpitations, lightheadedness, syncope, or ankle edema. He quit smoking cigarettes after his heart attack in 2009 but now he smokes an occasional cigar. He had been on cholesterol medication in the past but states he had numerous different side effects and stopped the medication. The only medication he takes now is aspirin. Certain portions of this document may have been dictated utilizing voice recognition technology. Inherent to this technology, typographical and grammatical errors may exist. As much as I am diligent to identify and correct these mistakes, some errors may remain in the document. Review of Systems-Cardiology Review of Systems Other comments Review of 10 organ systems is as per the history of present illness, otherwise negative. All Other Systems Reviewed Negative Unless Noted: Yes KUX-Uymekp-Zktgav Hx Patient Social History Marrital Status: Smoking Status: Former Smoker 2nd Hand Smoke Exposure: Yes Have you traveled recently?: No Alcohol Use?: Yes Pt feels they are or have been: No Tobacco type used: Cigars Past Medical History PMH As described under Assessment. Family Medical History Family History: Cardiovascular disease 19 MOTHER Dementia 19 MOTHER FH: brain tumor 19 FATHER Myocardial infarction Allergies and Home Medications Allergies Coded Allergies: No Known Drug Allergies (Unverified , 06/27/10) Patient Home Medication List Home Medication List Reviewed: Yes Aspirin (Aspirin Ec 81 Mg) 81 Mg Tabec, 81 MG PO DAILY, (Reported) Entered as Reported by: SUSAN SAMANIEGO on 07/29/11 1453 Prasugrel Hydrochloride (Effient) 10 Mg Tablet, 10 MG PO DAILY, (Reported) Entered as Reported by: TREY NOWAK on 03/13/12 0840 Exam Vital Signs Vital Signs Date Time Temp Pulse Resp B/P (MAP) Pulse Ox O2 Delivery O2 Flow Rate FiO2 08/21/21 08:32 94 Room Air 08/21/21 08:29 37.1 64 16 146/80 08/20/21 18:07 21 Physical Exam General: Alert. No acute distress. Well nourished and appears stated age. He is obese. Eye: Extraocular movements are intact. Conjunctivae are clear. There are no xanthelasma. HENT: Normocephalic. Atraumatic. Carotid pulsations 2/2 without bruits. Neck: Jugular venous pressure does not appear elevated. No thyromegaly appreciated. Respiratory: Lungs are clear to auscultation. Respirations are non-labored. Breath sounds are equal. Symmetrical chest wall expansion. Cardiovascular: Normal rate. Regular rhythm. No murmur. No gallop. Point of maximal impulse is not appear displaced. Good pulses equal in all extremities. No edema. Gastrointestinal: Soft. Normal bowel sounds. Skin: Skin turgor is normal. There is no pallor. Musculoskeletal: No kyphosis or scoliosis appreciated. Neurologic: Alert and oriented to person, place, time. Cranial nerves 3-12 appear grossly intact. The patient has good motor tone strength in the upper and lower extremities bilaterally. Psychiatric: Cooperative. Appropriate mood & affect. Labs Laboratory Tests Test 08/20/21 15:49 08/20/21 20:10 08/20/21 20:28 08/21/21 04:40 Range/Units White Blood Count 8.6 7.4 4.3-11.0 10^3/uL Red Blood Count 5.14 5.15 4.30-5.52 10^6/uL Hemoglobin 16.3 16.3 13.3-17.7 g/dL Hematocrit 48 48 40-54 % Mean Corpuscular Volume 93 92 80-99 fL Mean Corpuscular Hemoglobin 32 32 25-34 pg Mean Corpuscular Hemoglobin Concent 34 34 32-36 g/dL Red Cell Distribution Width 12.8 12.9 10.0-14.5 % Platelet Count 175 170 130-400 10^3/uL Mean Platelet Volume 9.5 9.7 9.0-12.2 fL Immature Granulocyte % (Auto) 1 0 % Neutrophils (%) (Auto) 69 60 42-75 % Lymphocytes (%) (Auto) 22 30 12-44 % Monocytes (%) (Auto) 7 7 0-12 % Eosinophils (%) (Auto) 1 1 0-10 % Basophils (%) (Auto) 1 1 0-10 % Neutrophils # (Auto) 5.9 4.4 1.8-7.8 10^3/uL Lymphocytes # (Auto) 1.9 2.2 1.0-4.0 10^3/uL Monocytes # (Auto) 0.6 0.5 0.0-1.0 10^3/uL Eosinophils # (Auto) 0.1 0.1 0.0-0.3 10^3/uL Basophils # (Auto) 0.1 0.1 0.0-0.1 10^3/uL Immature Granulocyte # (Auto) 0.1 0.0 0.0-0.1 10^3/uL Prothrombin Time 14.0 12.2-14.7 SEC INR Comment 1.0 0.8-1.4 Activated Partial Thromboplast Time 27 24-35 SEC Sodium Level 135 135 135-145 MMOL/L Potassium Level 4.5 4.5 3.6-5.0 MMOL/L Chloride Level 100 102 98-107 MMOL/L Carbon Dioxide Level 22 21 21-32 MMOL/L Anion Gap 13 12 5-14 MMOL/L Blood Urea Nitrogen 16 17 7-18 MG/DL Creatinine 1.09 0.84 0.60-1.30 MG/DL Estimat Glomerular Filtration Rate 68 92 BUN/Creatinine Ratio 15 20 Glucose Level 213 H 137 H 70-105 MG/DL Calcium Level 9.4 9.2 8.5-10.1 MG/DL Total Creatine Kinase 102 30-200 U/L Troponin I < 0.028 < 0.028 <0.028 NG/ML Glucometer 200 H 70-110 MG/DL Corrected Calcium 9.3 8.5-10.1 MG/DL Total Bilirubin 1.0 0.1-1.0 MG/DL Aspartate Amino Transf (AST/SGOT) 28 5-34 U/L Alanine Aminotransferase (ALT/SGPT) 33 0-55 U/L Alkaline Phosphatase 55 40-136 U/L Total Protein 6.9 6.4-8.2 GM/DL Albumin 3.9 3.2-4.5 GM/DL Triglycerides Level 218 H <150 MG/DL Cholesterol Level 204 H < 200 MG/DL LDL Cholesterol Direct 154 H 1-129 MG/DL VLDL Cholesterol 44 H 5-40 MG/DL HDL Cholesterol 37 L 40-60 MG/DL ECG Impression ECG Comment Sinus rhythm with probable old anteroseptal myocardial infarction. Diagnosis/Problems Diagnosis/Problems (1) Coronary artery disease with unstable angina pectoris Assessment & Plan: He is having symptoms concerning for unstable angina. He has previous stents to the left anterior descending coronary artery. Fortunately, his troponins are negative and he does not have any evidence of ischemia on his resting electrocardiogram. Nonetheless, given his history and the nature of the symptoms, this is concerning for an unstable plaque. I recommend he continue on aspirin. I will start him on beta-jemima. He should also be taking statin medication but he has already told me he may not want to take statin medications. In light of the unstable nature of his symptoms with his known history, I recommend further evaluation with a cardiac catheterization. (2) Abnormal ECG Assessment & Plan: His electrocardiogram shows a probable old anterior infarct but no ischemia at rest. We will proceed as above. (3) Elevated blood pressure reading without diagnosis of hypertension Assessment & Plan: His blood pressure is mildly elevated. He does not report a history of hypertension. In light of the unstable angina, I will start him on low-dose beta-jemima. (4) Mixed hyperlipidemia Assessment & Plan: His goal LDL is less than 100 mg/dL. He is well above this goal. I recommend therapy with statin medication. He wants to take red yeast rice. He can try this and see how it works but I suspect he will not get good enough lowering of the LDL with red yeast rice alone. (5) Obesity Assessment & Plan: He needs to work on weight loss. FARTUN CISSE JR, MD Aug 21, 2021 10:14
[2021-08-21] MEDS ORDERED: CATHETER FLUSH 10 ML SYR IV PRN (10:45)
[2021-08-21] MEDS ORDERED: NS IV 1000 ML 1,000 ML IV ONE (10:45)
[2021-08-21] MEDS ORDERED: HEParin (CATH LAB) 2,000 ML IV ONE (11:54)
[2021-08-21] MEDS ORDERED: HEParin 1000 UNIT/ML (10ML VIAL) FOR BOLUS ONE (11:54)
[2021-08-21] MEDS ORDERED: LIDOCAINE 1% INJ 20 ML 20 ML VIAL ONE (11:54)
[2021-08-21] MEDS ORDERED: fentaNYL INJ 100 MCG/2 ML AMP ONE (11:59)
[2021-08-21] MEDS ORDERED: MIDAZOLAM 5 MG/5 ML (VERSED) VIAL ONE (11:59)
[2021-08-21] MEDS ORDERED: VERAPAMIL 5 MG/2 ML (CALAN) VIAL IV ONE (11:59)
[2021-08-21] MEDS ORDERED: NITRO DRIP 25000 MCG/D5W 250 ML IV ONE (12:00)
--- NOTE | 2021-08-21 12:05 | Pre-Op Note & Conscious Sedat ---
Pre-Operative Progress Note H&P Reviewed The H&P was reviewed, patient examined and no changes noted. Date H&P Reviewed: Aug 21, 2021 Time H&P Reviewed: 12:04 Pre-Op Diagnosis: Coronary artery disease with unstable angina Conscious Sedation Pre-Proced ASA Score 2 For ASA 3 and 4: Consider anesthesia and medical clearance. Also, for patients with a history of failed moderate sedation consider anesthesia. Airway Lungs Heart ASA score ASA 1: a normal healthy patient ASA 2: a patient with a mild systemic disease (mid diabetes, controlled hypertension, obesity ASA 3: a patient with a severe systemic disease that limits activity (angina, COPD, prior Myocardial infarction) ASA 4: a patient with an incapacitating disease that is a constant threat to life (CHF, renal failure) ASA 5: a moribund patient not expected to survive 24 hrs. (ruptured aneurysm) ASA 6: a declared brain- patient whose organs are being harvested. For emergent operations, add the letter E after the classification Mallampati Classification Grade 2 Sedation Plan Analgesia, Amnesia, Plan communicated to team members, Discussed options with patient/fam, Discussed risks with patient/fam The patient is an appropriate candidate to undergo the planned procedure, sedation, and anesthesia. I carefully explained the benefits and risks of the procedure to the patient and his and both are in agreement to proceed. The patient immediately re-assessed prior to indication. FARTUN CISSE JR, MD Aug 21, 2021 12:05
[2021-08-21] MEDS ORDERED: NS IV 1000 ML 1,000 ML ONE (12:22)
[2021-08-21] MEDS ORDERED: NS IV 1000 ML 1,000 ML IV SCH (13:00)
[2021-08-21] MEDS ORDERED: meTOprolol TARTRATE 25 MG (LOPRESSOR) TABLET ONE (13:15)
--- NOTE | 2021-08-21 13:31 | Cardiac Cath Report ---
CARDIAC CATHETERIZATION DATE OF PROCEDURE: 08/21/2021 INDICATION: Coronary artery disease with unstable angina. HISTORY: The patient is a 65 year old male with a known history of coronary artery disease with previous stents in the left anterior descending coronary artery in 2009 followed by what sounds like was late stent thrombosis in 2011 that was treated with balloon angioplasty only. He had been doing well until yesterday when he started developing exertional chest discomfort and presented to the hospital for further evaluation. He had negative enzyme levels. Due to his history with the unstable nature of his symptoms, he is now referred for further evaluation with a cardiac catheterization. PROCEDURES PERFORMED: 1. Left heart catheterization with hemodynamic measurements. 2. Diagnostic eyak coronary angiography. PROCEDURE DESCRIPTION: After informed consent and in the fasting state, left heart catheterization was performed through the right radial artery utilizing a 6 Iraqi system by percutaneous approach. Standard 5 Iraqi Nathaniel catheters were utilized for the diagnostic portion of the procedure. All catheters were exchanged over a guidewire. Following the procedure, a vascular band was applied to the radial artery access site and the sheath was removed with good hemostasis. RESULTS: HEMODYNAMICS: The aortic pressure was 127/79 mmHg. The left ventricular pressure was 120/0 mmHg with a left ventricular end-diastolic pressure of 5 mmHg. There was no significant pressure gradient upon pullback across aortic valve. CORONARY ANGIOGRAPHY: The coronary arteries were mildly calcified. Left main coronary artery: Free of significant disease. Left anterior descending coronary artery: There was a stent in the mid segment which was widely patent. There was a small first diagonal branch which contained an 80% stenosis with SANDRA-2 flow. However, this was a very small branch measuring no more than 1.5 mm in maximal diameter. The second diagonal branch is jailed by the stent in the left anterior descending coronary artery and contained a 90% stenosis in the ostium with SANDRA-2 flow. This was approx imately a 2.25 mm vessel. This was a bifurcation lesion with a Gloria classification of 0, 0, 1. Left circumflex coronary artery: There was a 50% stenosis in the ostium of the second obtuse marginal branch. This formed a bifurcation lesion with the main body of the left circumflex coronary artery and the first obtuse marginal branch with a Gloria classification of 0, 1, 0. There was SANDRA-3 flow. Right coronary artery: Dominant and free of significant disease. IMPRESSION: 1. Normal left heart pressures. 2. Patent stent in the mid left anterior descending coronary artery. There is severe disease in the second diagonal branch which is jailed by the stent. This would be difficult to treat with percutaneous intervention given the ostial location of the lesion that is also jailed. 3. There is moderate disease in the left circumflex system as outlined above. 4. The patient will be continued on aspirin and initiate therapy with beta- jemima and statin medication. If the beta-jemima does not keep his angina under control, I will consider adding an additional antianginal medication. 5. If he fails medical therapy with 2 antianginal medications, then we could consider high risk intervention of the first diagonal branch. Certain portions of this document may have been dictated utilizing voice recognition technology. Inherent to this technology, typographical and grammatical errors may exist. As much as I am diligent to identify and correct these mistakes, some errors may remain in the document. FARTUN CISSE JR, MD Aug 21, 2021 13:31
[2021-08-21] MEDS ORDERED: ROSU20TA32 PO (14:54)
[2021-08-21] MEDS ORDERED: NITR0.4T42 SL (14:54)
[2021-08-21] MEDS ORDERED: METO50TA7 PO (14:54)
--- NOTE | 2021-08-21 14:56 | Discharge Summary ---
Discharge Summary Hospital Course Was the Problem List Reviewed?: Yes Problems/Dx: (1) Coronary artery disease with unstable angina pectoris (2) Abnormal ECG (3) Elevated blood pressure reading without diagnosis of hypertension (4) Mixed hyperlipidemia (5) Obesity Hospital Course Date of Admission: Aug 20, 2021 at 16:48 Admission Diagnosis : Family Physician/Provider: [place] Date of Discharge: 08/21/21 Discharge Diagnosis: Chest pain without evidence of ACS with cardiac cathet erization requiring no intervention Hospital Course: Short course after he was admitted for chest pain due to CAD previous stent placement and cardiac catheterization performed no evidence of any intervention needed so he was discharged in improved condition. Labs and Pending Lab Test: Laboratory Tests 08/20/21 15:49: White Blood Count 8.6, Red Blood Count 5.14, Hemoglobin 16.3, Hematocrit 48, Mean Corpuscular Volume 93, Mean Corpuscular Hemoglobin 32, Mean Corpuscular Hemoglobin Concent 34, Red Cell Distribution Width 12.8, Platelet Count 175, Mean Platelet Volume 9.5, Immature Granulocyte % (Auto) 1, Neutrophils (%) (Auto) 69, Lymphocytes (%) (Auto) 22, Monocytes (%) (Auto) 7, Eosinophils (%) (Auto) 1, Basophils (%) (Auto) 1, Neutrophils # (Auto) 5.9, Lymphocytes # (Auto) 1.9, Monocytes # (Auto) 0.6, Eosinophils # (Auto) 0.1, Basophils # (Auto) 0.1, Immature Granulocyte # (Auto) 0.1, Prothrombin Time 14.0, INR Comment 1.0, Activated Partial Thromboplast Time 27, Sodium Level 135, Potassium Level 4.5, Chloride Level 100, Carbon Dioxide Level 22, Anion Gap 13, Blood Urea Nitrogen 16, Creatinine 1.09, Estimat Glomerular Filtration Rate 68, BUN/Creatinine Ratio 15, Glucose Level 213H, Calcium Level 9.4, Total Creatine Kinase 102, Troponin I < 0.028 08/20/21 20:10: Troponin I < 0.028 08/20/21 20:28: Glucometer 200H 08/21/21 04:40: White Blood Count 7.4, Red Blood Count 5.15, Hemoglobin 16.3, Hematocrit 48, Mean Corpuscular Volume 92, Mean Corpuscular Hemoglobin 32, Mean Corpuscular Hemoglobin Concent 34, Red Cell Distribution Width 12.9, Platelet Count 170, Mean Platelet Volume 9.7, Immature Granulocyte % (Auto) 0, Neutrophils (%) (Auto) 60, Lymphocytes (%) (Auto) 30, Monocytes (%) (Auto) 7, Eosinophils (%) (Auto) 1, Basophils (%) (Auto) 1, Neutrophils # (Auto) 4.4, Lymphocytes # (Auto) 2.2, Monocytes # (Auto) 0.5, Eosinophils # (Auto) 0.1, Basophils # (Auto) 0.1, Immature Granulocyte # (Auto) 0.0, Sodium Level 135, Potassium Level 4.5, Chloride Level 102, Carbon Dioxide Level 21, Anion Gap 12, Blood Urea Nitrogen 17, Creatinine 0.84, Estimat Glomerular Filtration Rate 92, BUN/Creatinine Ratio 20, Glucose Level 137H, Calcium Level 9.2, Corrected Calcium 9.3, Total Bilirubin 1.0, Aspartate Amino Transf (AST/SGOT) 28, Alanine Aminotransferase (ALT/SGPT) 33, Alkaline Phosphatase 55, Total Protein 6.9, Albumin 3.9, Triglycerides Level 218H, Cholesterol Level 204H, LDL Cholesterol Direct 154H, VLDL Cholesterol 44H, HDL Cholesterol 37L 08/21/21 10:52: Glucometer 160H Home Meds Active Metoprolol Succinate 50 Mg Tab.er.24h 50 Mg PO DAILY Nitroglycerin 0.4 Mg Tab.subl 0.4 Mg SL PRN PRN Rosuvastatin Calcium 20 Mg Tablet 20 Mg PO HS Reported Effient (Prasugrel Hydrochloride) 10 Mg Tablet 10 Mg PO DAILY Aspirin Ec 81 Mg (Aspirin) 81 Mg Tabec 81 Mg PO DAILY Assessment/Pt Instructions [facility] in 1 week Discharge Planning: <30 minutes discharge planning Discharge Instructions Discharge Diet: Cardiac Diet Discharge Physical Examination Vital Signs Vital Signs Date Time Temp Pulse Resp B/P (MAP) Pulse Ox O2 Delivery O2 Flow Rate FiO2 08/21/21 13:00 59 08/21/21 12:29 36.5 16 153/73 91 08/21/21 08:32 Room Air 08/20/21 18:07 21 General Appearance: No Apparent Distress, WD/WN, Chronically ill, Obese Allergies: Coded Allergies: No Known Drug Allergies (Unverified , 06/27/10) Discharge Summary Date of Admission Aug 20, 2021 at 16:48 Date of Discharge Discharge Date: Aug 21, 2021 Discharge Diagnosis (1) Coronary artery disease with unstable angina pectoris Assessment & Plan: He is having symptoms concerning for unstable angina. He has previous stents to the left anterior descending coronary artery. Fortunately, his troponins are negative and he does not have any evidence of ischemia on his resting electrocardiogram. Nonetheless, given his history and the nature of the symptoms, this is concerning for an unstable plaque. I recommend he continue on aspirin. I will start him on beta-jemima. He should also be taking statin medication but he has already told me he may not want to take statin medications. In light of the unstable nature of his symptoms with his known history, I recommend further evaluation with a cardiac catheterization. (2) Abnormal ECG Assessment & Plan: His electrocardiogram shows a probable old anterior infarct but no ischemia at rest. We will proceed as above. (3) Elevated blood pressure reading without diagnosis of hypertension Assessment & Plan: His blood pressure is mildly elevated. He does not report a history of hypertension. In light of the unstable angina, I will start him on low-dose beta-jemima. (4) Mixed hyperlipidemia Assessment & Plan: His goal LDL is less than 100 mg/dL. He is well above this goal. I recommend therapy with statin medication. He wants to take red yeast rice. He can try this and see how it works but I suspect he will not get good enough lowering of the LDL with red yeast rice alone. (5) Obesity Assessment & Plan: He needs to work on weight loss. Clinical Quality Measures AMI/AHF: ASA po Prior to arrival: Yes IDALIA CORNEJO DO Aug 21, 2021 14:56
[2021-08-21] MEDS ORDERED: ROSUVASTATIN 20 MG (CRESTOR) TABLET PO SCH (21:00)
[2021-08-22] MEDS ORDERED: meTOproloL SUCCINATE 50 MG (TOPROL XL) TAB PO SCH (09:00)
== END 2021-08-21 14:55 | disposition home or self-care (01) ==
LOC: EDUNIT# 15:48 → ER 15:49 → CSD 16:48 → UNDOADMOB 16:48 → CSD 17:48 → UNDODISOB 08-21 18:00
PROVIDERS: ADMIT Internal Medicine; ATTEND Internal Medicine
DX: I25.110 Atherosclerotic heart disease of native coronary artery with unstable angina pectoris (principal); R94.39 Abnormal result of other cardiovascular function study; R03.0 Elevated blood-pressure reading, without diagnosis of hypertension; E78.2 Mixed hyperlipidemia; E66.9 Obesity, unspecified; I25.2 Old myocardial infarction; K21.9 Gastro-esophageal reflux disease without esophagitis; M19.90 Unspecified osteoarthritis, unspecified site; Z79.82 Long term (current) use of aspirin; Z79.899 Other long term (current) drug therapy; Z87.891 Personal history of nicotine dependence; Z80.8 Family history of malignant neoplasm of other organs or systems
CPT/HCPCS: 71045; 80048; 80053; 80061; 82550; 82947 ×2; 84484; 85025 ×2; 85610; 85730; 93005 ×2; 93458; 96372; 96374; 99284; C1894; G0378; 36415

== ENCOUNTER → 2021-09-19 | Outpatient (CLI) | payer OTHER ==
[~2021-09-19] MED LIST changes: +METO50TA7 PO; +NITR0.4T42 SL; +ROSU20TA32 PO
== END ==
LOC: CARD 14:00
PROVIDERS: ATTEND Internal Medicine Cardiovascular Disease
DX: I34.0 Nonrheumatic mitral (valve) insufficiency (principal)
CPT/HCPCS: 93306

== ENCOUNTER 2021-12-14 17:49 | Inpatient (IN) | payer MEDICARE, OTHER ==
[~2021-12-14] VITALS: Ht 177.8 cm; Wt 103.5 kg
[2021-12-14] MEDS ORDERED: CLOPIDOGREL 300 MG (PLAVIX) TABLET PO ONE ×2 (18:04→18:15)
[2021-12-14] MEDS ORDERED: HEParin 1000 UNIT/ML (10ML VIAL) FOR BOLUS ONE (18:06)
[2021-12-14] MEDS ORDERED: MIDAZOLAM 5 MG/5 ML (VERSED) VIAL ONE (18:06)
[2021-12-14] MEDS ORDERED: fentaNYL INJ 100 MCG/2 ML AMP ONE (18:06)
[2021-12-14] MEDS ORDERED: LIDOCAINE 1% INJ 50 ML (XYLOCAINE) VIAL ONE (18:07)
[2021-12-14 18:14] LABS: BASOPHILS # (AUTO) 0.1 10^3/uL (0.0-0.1); BASOPHILS % (AUTO) 1 % (0-10); EOSINOPHILS # (AUTO) 0.1 10^3/uL (0.0-0.3); EOSINOPHILS % (AUTO) 2 % (0-10); HEMATOCRIT 47 % (40-54); HEMOGLOBIN 16.3 g/dL (13.3-17.7); LYMPHOCYTES # (AUTO) 2.1 10^3/uL (1.0-4.0); LYMPHOCYTES % (AUTO) 28 % (12-44); MEAN CORPUSCULAR HEMOGLOBIN 32 pg (25-34); MEAN CORPUSCULAR HGB CONC 35 g/dL (32-36); MEAN CORPUSCULAR VOLUME 93 fL (80-99); MEAN PLATELET VOLUME 9.7 fL (9.0-12.2); MONOCYTES # (AUTO) 0.5 10^3/uL (0.0-1.0); MONOCYTES % (AUTO) 7 % (0-12); NEUTROPHILS # (AUTO) 4.5 10^3/uL (1.8-7.8); NEUTROPHILS % (AUTO) 61 % (42-75); PLATELET COUNT 211 10^3/uL (130-400); WHITE BLOOD COUNT 7.4 10^3/uL (4.3-11.0)
--- NOTE | 2021-12-14 18:15 | Cardiology History & Physical ---
HPI-Cardiology Cardiology H&P Date of Admission 12/14/21 Primary Care Physician Center/[facility] Attending Physician Consulting Physician HPI CC: Chest pain HPI 66 yo man with onset of severe midsternal pain 2 hours prior to presentation, feeling of severe pressure, radiating to shoulders, associated with intermittent nausea and diaphoresis, more severe than he had experienced with a previous heart attack. He denies palp or syncope or swelling Review of Systems-Cardiology Review of Systems Constitutional: malaise; No weight loss, No weight gain Eyes: No vision change Ears/Nose/Throat: No recent hearing loss Respiratory: As described under HPI Cardiovascular: As described under HPI Gastrointestinal: As described under HPI Genitourinary: No dysuria, No hematuria Musculoskeletal: No back pain, No joint pain Skin: No rash, No ulcerations Psychiatric/Neurological: No seizure, No focal weakness, No syncope Hematologic: No bleeding abnormalities [id number] Hx Patient Social History 2nd Hand Smoke Exposure: Yes Alcohol Use?: Yes Tobacco type used: Cigarettes Past Medical History PMH As described under Assessment. Family Medical History Family History: Cardiovascular disease 19 MOTHER Dementia 19 MOTHER FH: brain tumor 19 FATHER Myocardial infarction Allergies and Home Medications Allergies Coded Allergies: No Known Drug Allergies (Unverified , 06/27/10) Patient Home Medication List Home Medication List Reviewed: Yes Aspirin (Aspirin Ec 81 Mg) 81 Mg Tabec, 81 MG PO DAILY, (Reported) Entered as Reported by: SUSAN SAMANIEGO on 07/29/11 1453 Metoprolol Succinate (Metoprolol Succinate) 50 Mg Tab.er.24h, 50 MG PO DAILY Prescribed by: FARTUN LENNON JR, MD on 08/21/21 1454 Nitroglycerin (Nitroglycerin) 0.4 Mg Tab.subl, 0.4 MG SL PRN PRN for CHEST PAIN (ANGINA) Prescribed by: FARTUN LENNON JR, MD on 08/21/21 1454 Rosuvastatin Calcium (Rosuvastatin Calcium) 20 Mg Tablet, 20 MG PO HS Prescribed by: FARTUN LENNON JR, MD on 08/21/21 1454 Physical Exam-Cardiology Physical Exam Vital Signs/I&O 12/14/21 12/14/21 17:51 17:51 Temp 35.4 Pulse 55 Resp 24 B/P (MAP) 143/85 (104) Pulse Ox 98 O2 Delivery Nasal Cannula Nasal Cannula O2 Flow Rate 3.00 3.00 Capillary Refill : Less Than 3 Seconds Constitutional: AAO x 3, well-developed, well-nourished HEENT: EOMI Neck: carotid pulses are 2 + bilaterally Respiratory: No accessory muscle use; other (fair to good, bilateral air entry) Cardiovascular: regular rate-rhythm, S1 and S2, systolic murmur (soft CHRISTO at card base) Gastrointestinal: No tender; distended; No guarding, No rebound Extremities: No clubbing, No cyanosis, No significant edema Neurologic/Psychiatric: other (moves all limbs equally) Skin: No rash on exposed areas, No ulcerations on exposed areas Data Review Labs Laboratory Tests 12/14/21 17:51: White Blood Count 7.4, Red Blood Count 5.06, Hemoglobin 16.3, Hematocrit 47, Mean Corpuscular Volume 93, Mean Corpuscular Hemoglobin 32, Mean Corpuscular Hemoglobin Concent 35, Red Cell Distribution Width 13.1, Platelet Count 211, Mean Platelet Volume 9.7, Immature Granulocyte % (Auto) 1, Neutrophils (%) (Auto) 61, Lymphocytes (%) (Auto) 28, Monocytes (%) (Auto) 7, Eosinophils (%) (Auto) 2, Basophils (%) (Auto) 1, Neutrophils # (Auto) 4.5, Lymphocytes # (Auto) 2.1, Monocytes # (Auto) 0.5, Eosinophils # (Auto) 0.1, Basophils # (Auto) 0.1, I mmature Granulocyte # (Auto) 0.1, Prothrombin Time 13.6, INR Comment 1.0, Activated Partial Thromboplast Time 28, Sodium Level 138, Potassium Level 4.4, Chloride Level 107, Carbon Dioxide Level 16L, Anion Gap 15H, Blood Urea Nitrogen 14, Creatinine 0.92, Estimat Glomerular Filtration Rate 92, BUN/Creatinine Ratio 15, Glucose Level 187H, Calcium Level 8.9, Corrected Calcium 9.1, Magnesium Level 1.5L, Total Bilirubin 0.7, Aspartate Amino Transf (AST/SGOT) 38H, Alanine Aminotransferase (ALT/SGPT) 47, Alkaline Phosphatase 60, Myoglobin 56.7, Troponin I < 0.028, Total Protein 7.1, Albumin 3.7 Laboratory Tests 12/14/21 17:51 A/P-Cardiology Assessment/Admission Diagnosis Ac STEMI, inf wall CAD and chronic angina - H/o LAD stenting several years ago - Last card cath 08/21/21 (Dr Lennon): patent LAD stent, jailed second diag with severe ostial disease treated medically, mod LCx dz, mild dz in dominant RCA Chronically 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 Quit smoking in 2009, now occ cigar Admission Status: Inpatient Order (span 2 midnights) Reason for Inpatient Admission: Ac STEMI Discussion and Recomendations Emergency card cath. Pt provides informed consent for card cath and possible ad hoc cor intervention. Further decisions based on card cath Clinical Quality Measures AMI/AHF: ASA po Prior to arrival: HEIDY Bhardwaj MD FACP FACC CCDS Dec 14, 2021 18:15
[2021-12-14 18:19] LABS: PROTHROMBIN TIME PATIENT 13.6 SEC (12.2-14.7)
[2021-12-14 18:21] LABS: ALBUMIN 3.7 GM/DL (3.2-4.5); POTASSIUM 4.4 MMOL/L (3.6-5.0)
[2021-12-14 18:23] LABS: CALCIUM 8.9 MG/DL (8.5-10.1)
[2021-12-14 18:24] LABS: TOTAL PROTEIN 7.1 GM/DL (6.4-8.2)
[2021-12-14 18:25] LABS: BILIRUBIN,TOTAL 0.7 MG/DL (0.1-1.0)
[2021-12-14 18:27] LABS: CREATININE SERUM 0.92 MG/DL (0.60-1.30)
[2021-12-14 18:31] LABS: MAGNESIUM 1.5 MG/DL (1.6-2.4)
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
[2021-12-14] MEDS ORDERED: oxyCODONE/APAP 5/325MG (PERCOCET 5) TABLET PO PRN (19:15)
[2021-12-14] MEDS ORDERED: ACETAMINOPHEN 325 MG TABLET PO PRN (19:15)
[2021-12-14] MEDS ORDERED: PATIENT MAY USE OWN MEDS, ALL PO SCH (19:15)
--- NOTE | 2021-12-14 19:28 | Diagnostic Imaging Report ---
HISTORY: Chest pain. COMPARISON: 08/20/2021. TECHNIQUE: Frontal view of the chest. FINDINGS: Interstitial markings appear more prominent than compared to the prior exam. There is mild atelectasis in the lung bases. There is no pleural effusion or pneumothorax. The cardiac silhouette is normal in size. IMPRESSION: Bibasilar atelectasis. Prominent interstitial markings may represent a mild interstitial edema. Dictated by: Dictated on workstation # [id number]
--- NOTE | 2021-12-14 20:47 | Tele-ICU Consult ---
Progress Note 66M with h/o HTN, HLD, CAD, prior PCI admitted with inferior wall STEMI after shoveling snow. Last cardiac cath was 08/21/21, at which time he had a patent LAD stent, jailed second diag with severe ostial disease treated medically, mod LCx dz, mild dz in dominant RCA. Taken for emergent cardiac cath, found to have LCx 100% s/p PCI with stent. LAD 60%, may require second look in a couple days. Patient is now asymptomatic and doing well. Sheath to be removed in about an yasmine r. - STEMI: s/p intervention with resolution of symptoms. Anticoag/antiplat per cardiology. Symptom/tele monitoring in ICU post cath. - hyperglycemia: glucose 187, not fasting. Check A1C with AM labs. - HLD: lipids with AM labs - HTN: No prior diagnosis/medication. Has been started on Toprol XL, per cards consideration of BOBO on discharge. Will provide PRNs if needed to maintain SBP<140 Focused Exam Height, Weight, BMI Height: 5'9.00" Weight: 245lbs. 2.4oz. 111.224302ck; 33.81 BMI Method:Estimated ABHISHEK PINEDA MD Dec 14, 2021 20:47
[2021-12-14] MEDS ORDERED: NS IV 1000 ML 1,000 ML ONE (21:28)
[2021-12-14] MEDS ORDERED: ATROPINE INJECTION 1 MG/10 ML SYR (ABBOTT) ONE (21:28)
[2021-12-14] MEDS: NS IV 1000 ML 1,000 ML IV SCH (21:36)
--- NOTE | 2021-12-14 22:54 | CARDIAC CATHETERIZATION ---
DATE OF SERVICE: 12/14/2021 CARDIAC CATHETERIZATION AND CORONARY INTERVENTION REPORT The patient is a 66-year-old gentleman, who is known to have coronary artery disease and who had stenting of the left anterior descending artery in or around 2009. Last cardiac catheterization was by Dr. Lennon in late 2020. Stent was found to be patent. A small caliber diagonal branch was found to be jailed by the stent and had severe ostial disease for which medical therapy was carried out. Left circumflex artery had moderate disease. Right coronary artery had mild disease. He now presented with acute ST elevation inferolateral myocardial infarction. Emergency cardiac catheterization was carried out after having obtained an informed consent from him. DESCRIPTION OF PROCEDURE: He was brought to the cardiac catheterization laboratory. Right groin was prepared and draped in the usual sterile fashion. Lidocaine 1% was used for local anesthesia. Modified Seldinger technique was used to advance a 6-Libyan sheath in the right femoral artery. A 6-Libyan JR4 guide catheter with side holes was used to engage the right coronary artery. This was because the electrocardiogram was suggestive of a lesion in the right coronary artery. Injection of the right coronary artery through the guide catheter did not indicate significant right coronary artery disease. This catheter was then removed. We then used 6-Libyan JL4 guide catheter to engage the left coronary system. This showed that the mid left circumflex artery was occluded. Intervention was then carried out that is described below. Following completion of intervention to the left circumflex artery, we used a 6-Libyan pigtail catheter for left heart catheterization and left ventricular angiography. At the end of the procedure, the sheath was sutured in place and the patient was transferred to the floor for manual sheath removal. PERCUTANEOUS INTERVENTION TO THE LEFT CIRCUMFLEX ARTERY: The left circumflex artery was completely occluded in its mid portion. We used a 6-Libyan JL4 guide catheter to engage the left coronary system and advanced a ChoICE floppy wire across the lesion and then carried out balloon angioplasty with a 2.0 x 20 mm balloon, which improved the flow from SANDRA 0 to SANDRA 3 in the distal vessel. We then stented the segment with Xience Skypoint 3.0 x 33 mm stent. It was deployed at 12 atmospheres. The stent balloon was then collapsed and pulled back to the proximal two-third of the stent and again inflated at 20 atmospheres. This was done because the proximal part of the stented segment appeared to be slightly larger than the distal segment. Subsequent angiography revealed 0% residual stenosis and flow throughout the vessel is normal. An obtuse marginal branch is jailed by the stent, but it does not exhibit any significant compromise. The angioplasty equipment was removed and sheath was sutured in place and the patient was transferred to the floor for manual sheath removal. HEMODYNAMICS: Left ventricular end-diastolic pressure following coronary angiography was 24 mmHg. There is no significant pressure gradient on pullback across the aortic valve. Ascending aortic pressure was 117/67 with a mean 89 mmHg. LEFT VENTRICULAR ANGIOGRAPHY: Left ventricular coronary angiography was carried out in right anterior oblique projection. Global left ventricular systolic function is well preserved. No significant regional wall motion abnormalities seen on this view. Left ventricular ejection fraction is 50% to 55%. CORONARY ANGIOGRAPHY: Left main coronary artery does not exhibit significant disease. Left anterior descending artery had a patent stent in its mid portion. The proximal part of the stent has 60% stenosis. Distal to the stent, the left anterior descending artery exhibits another 60% stenosis. A relatively small caliber diagonal branch is jailed by this stent. The diagonal branch is approximately 1.5 mm in size and exhibits 99% stenosis. This does not seem to have changed compared to previous study of late [address] Lennon. The left circumflex artery was completely occluded in its midportion. To this, successful percutaneous intervention was carried out that is described above. Following deployment of a Xience Skypoint 3.0 x 33 mm stent, there is no significant residual stenosis. The right coronary artery is dominant and has mild diffuse plaques. CONCLUSIONS: 1. Coronary artery disease primarily consisting of acute mid vessel occlusion of the left circumflex artery to which successful intervention was carried out. Following deployment of Skypoint 3.0 x 33 mm stent, there is no significant residual stenosis. An obtuse marginal branch is jailed by the stent, but does not exhibit significant compromise. The left anterior descending artery has a patent stent in its mid portion that had 60% stenosis in its proximal portion and there is also a 60% stenosis distal to the stent. The stent jails a small caliber diagonal branch that exhibits 99% ostial stenosis and there is a chronic lesion documented on a cardiac catheterization in 2020. The right coronary artery exhibits mild plaque. 2. Elevated left ventricular end-diastolic pressure (24 mmHg). 3. Well preserved global left ventricular systolic function with ejection fraction of 50% to 55%. DISCUSSION AND RECOMMENDATIONS: He is being hospitalized. Dual antiplatelet therapy has been initiated. Statin therapy has been initiated. Beta jemima therapy will be given as tolerated by blood pressure. Further decision will be based on his hospital course. Job ID: [id number] DocumentID: [id number] Dictated Date: 12/14/2021 19:25:37 Rv Repairer Date: 12/14/2021 22:53:44 Dictated By: HEIDY BANKS MD, MA, FACP, FACC,
[2021-12-15] MEDS: NS IV 1000 ML 1,000 ML IV SCH ×2 (00:41→21:55)
[2021-12-15 04:38] LABS: BASOPHILS # (AUTO) 0.1 10^3/uL (0.0-0.1); BASOPHILS % (AUTO) 1 % (0-10); LYMPHOCYTES % (AUTO) 12 % (12-44); PLATELET COUNT 165 10^3/uL (130-400)
[2021-12-15 04:40] LABS: EOSINOPHILS % (AUTO) 0 % (0-10); HEMATOCRIT 44 % (40-54); LYMPHOCYTES # (AUTO) 1.1 10^3/uL (1.0-4.0); MEAN CORPUSCULAR HEMOGLOBIN 32 pg (25-34); MEAN CORPUSCULAR HGB CONC 35 g/dL (32-36); MEAN CORPUSCULAR VOLUME 93 fL (80-99); MONOCYTES # (AUTO) 0.6 10^3/uL (0.0-1.0); MONOCYTES % (AUTO) 7 % (0-12); NEUTROPHILS # (AUTO) 7.1 10^3/uL (1.8-7.8); NEUTROPHILS % (AUTO) 80 % (42-75); WHITE BLOOD COUNT 8.9 10^3/uL (4.3-11.0)
[2021-12-15 05:03] LABS: ALBUMIN 3.6 GM/DL (3.2-4.5); POTASSIUM 4.3 MMOL/L (3.6-5.0)
[2021-12-15 05:04] LABS: CALCIUM 8.5 MG/DL (8.5-10.1)
[2021-12-15 05:05] LABS: TOTAL PROTEIN 6.9 GM/DL (6.4-8.2)
[2021-12-15 05:07] LABS: BILIRUBIN,TOTAL 0.8 MG/DL (0.1-1.0)
[2021-12-15 05:09] LABS: CREATININE SERUM 0.76 MG/DL (0.60-1.30)
[2021-12-15 05:12] LABS: MAGNESIUM 1.8 MG/DL (1.6-2.4)
[2021-12-15] MEDS: ASPIRIN 81 MG CHEW (CHILDREN'S ASA) PO SCH (09:00)
[2021-12-15] MEDS: CLOPIDOGREL 75 MG (PLAVIX) TABLET PO SCH (09:00)
--- NOTE | 2021-12-15 09:21 | Progress Note - Cardiology ---
Cardiology SOAP Progress Note Subjective: Sitting up in bed States he feels better today, just tired No c/o CP, palpitations, dyspnea Objective: I&O/Vital Signs 12/14/21 12/14/21 12/14/21 12/15/21 22:00 23:00 23:00 00:00 Temp 36.6 Pulse 66 65 Resp 14 20 B/P (MAP) 107/71 129/73 Pulse Ox 97 95 O2 Delivery Nasal Cannula Nasal Cannula Nasal Cannula Nasal Cannula O2 Flow Rate 2.00 2.00 2.00 2.00 12/15/21 12/15/21 12/15/21 12/15/21 00:00 01:00 01:00 02:00 Pulse 57 63 57 56 Resp 21 15 23 B/P (MAP) 132/74 123/68 119/65 Pulse Ox 96 94 94 O2 Delivery Nasal Cannula Nasal Cannula Nasal Cannula O2 Flow Rate 2.00 2.00 2.00 12/15/21 12/15/21 12/15/21 12/15/21 03:00 04:00 04:05 05:00 Pulse 64 80 57 Resp 14 12 19 B/P (MAP) 117/60 125/60 118/59 Pulse Ox 95 96 94 O2 Delivery Nasal Cannula Nasal Cannula Nasal Cannula Nasal Cannula O2 Flow Rate 2.00 2.00 2.00 2.00 12/15/21 12/15/21 12/15/21 12/15/21 06:00 07:00 07:00 07:30 Temp 36.7 Pulse 58 64 55 Resp 19 17 B/P (MAP) 119/67 129/70 Pulse Ox 95 93 O2 Delivery Nasal Cannula Nasal Cannula O2 Flow Rate 2.00 2.00 12/15/21 12/15/21 12/15/21 08:00 08:00 09:00 Pulse 58 71 Resp 11 25 B/P (MAP) 121/59 137/91 Pulse Ox 95 94 O2 Delivery Nasal Cannula Nasal Cannula Nasal Cannula O2 Flow Rate 2.00 2.00 2.00 12/15/21 00:00 Intake Total 1800 ml Output Total 700 ml Balance 1100 ml Weight (Pounds): 245 Weight (Ounces): 2.4 Weight (Calculated Kilograms): 111.720998 Side: right Condition: DP/PT pulses palpable, extremity w/d/p Bruising: mild bruising Constitutional: AAO x 3, well-developed, well-nourished Respiratory: No accessory muscle use; other (fair to good, bilateral air entry) Cardiovascular: regular rate-rhythm, S1 and S2, systolic murmur (soft CHRISTO at card base) Gastrointestional: No tender; distended; No guarding, No rebound Extremities: No clubbing, No cyanosis, No significant edema Neurologic/Psychiatric: other (moves all limbs equally) Skin: No rash on exposed areas, No ulcerations on exposed areas Results/Procedures: Labs Laboratory Tests 12/14/21 17:51: White Blood Count 7.4, Red Blood Count 5.06, Hemoglobin 16.3, Hematocrit 47, Mean Corpuscular Volume 93, Mean Corpuscular Hemoglobin 32, Mean Corpuscular Hemoglobin Concent 35, Red Cell Distribution Width 13.1, Platelet Count 211, Mean Platelet Volume 9.7, Immature Granulocyte % (Auto) 1, Neutrophils (%) (Auto) 61, Lymphocytes (%) (Auto) 28, Monocytes (%) (Auto) 7, Eosinophils (%) (Auto) 2, Basophils (%) (Auto) 1, Neutrophils # (Auto) 4.5, Lymphocytes # (Auto) 2.1, Monocytes # (Auto) 0.5, Eosinophils # (Auto) 0.1, Basophils # (Auto) 0.1, Immature Granulocyte # (Auto) 0.1, Prothrombin Time 13.6, INR Comment 1.0, Activated Partial Thromboplast Time 28, Sodium Level 138, Potassium Level 4.4, Chloride Level 107, Carbon Dioxide Level 16L, Anion Gap 15H, Blood Urea Nitrogen 14, Creatinine 0.92, Estimat Glomerular Filtration Rate 92, BUN/Creatinine Ratio 15, Glucose Level 187H, Calcium Level 8.9, Corrected Calcium 9.1, Magnesium Level 1.5L, Total Bilirubin 0.7, Aspartate Amino Transf (AST/SGOT) 38H, Alanine Aminotransferase (ALT/SGPT) 47, Alkaline Phosphatase 60, Myoglobin 56.7, Troponin I < 0.028, Total Protein 7.1, Albumin 3.7 12/14/21 17:59: SARS-CoV-2 RNA (RT-PCR) Not Detected 12/15/21 04:09: White Blood Count 8.9, Red Blood Count 4.67, Hemoglobin 15.0, Hematocrit 44, Mean Corpuscular Volume 93, Mean Corpuscular Hemoglobin 32, Mean Corpuscular Hemoglobin Concent 35, Red Cell Distribution Width 13.2, Platelet Count 165, Mean Platelet Volume 10.0, Immature Granulocyte % (Auto) 0, Neutrophils (%) (Auto) 80H, Lymphocytes (%) (Auto) 12, Monocytes (%) (Auto) 7, Eosinophils (%) (Auto) 0, Basophils (%) (Auto) 1, Neutrophils # (Auto) 7.1, Lymphocytes # (Auto) 1.1, Monocytes # (Auto) 0.6, Eosinophils # (Auto) 0.0, Basophils # (Auto) 0.1, Immature Granulocyte # (Auto) 0.0, Sodium Level 136, Potassium Level 4.3, Chloride Level 108H, Carbon Dioxide Level 16L, Anion Gap 12, Blood Urea Nitrogen 13, Creatinine 0.76, Estimat Glomerular Filtration Rate 100, BUN/Creatinine Ratio 17, Glucose Level 153H, Calcium Level 8.5, Corrected Calcium 8.8, Magnesium Level 1.8, Total Bilirubin 0.8, Aspartate Amino Transf (AST/SGOT) 255H , Alanine Aminotransferase (ALT/SGPT) 77H, Alkaline Phosphatase 60, Total Protein 6.9, Albumin 3.6, Percent Immature Platelet Fraction 2.5, Triglycerides Level 154H, Cholesterol Level 195, LDL Cholesterol Direct 156H, VLDL Cholesterol 31, HDL Cholesterol 30L Laboratory Tests 12/14/21 17:51 12/15/21 04:09 A/P: Assessment: Ac STEMI, inf wall - Most recent cardiac cath of 12-14-21: Coronary artery disease primarily con sisting of acute mid vessel occlusion of the left circumflex artery to which successful intervention was carried out. Following deployment of Skypoint 3.0 x 33 mm stent, there is no significant residual stenosis. An obtuse marginal branch is jailed by the stent, but does not exhibit significant compromise. The left anterior descending artery has a patent stent in its mid portion that had 60% stenosis in its proximal portion and there is also a 60% stenosis distal to the stent. The stent jails a small caliber diagonal branch that exhibits 99% ostial stenosis and there is a chronic lesion documented on a cardiac catheterization in 2020. The right coronary artery exhibits mild plaque. Blanco andrés left ventricular end-diastolic pressure (24 mmHg). Well preserved global left ventricular systolic function with ejection fraction of 50% to 55%. 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 Quit smoking in 2009, now occ cigar Plan: S/P cardiac cath with successful coronary intervention Continue current medication including DAPT Increase activity today Transfer to [facility] Clinical Quality Measures AMI/AHF: ASA po Prior to arrival: ADRIANA Vo Dec 15, 2021 09:21
--- NOTE | 2021-12-15 17:14 | Progress Note - Cardiology ---
Cardiology SOAP Progress Note Subjective: No cp or palp or syncope or shortness of breath or palp or syncope No groin or leg discomfort No n/v/d No focal weakness Objective: I&O/Vital Signs 12/15/21 12/15/21 12/15/21 12/15/21 06:00 07:00 07:00 07:30 Temp 36.7 Pulse 58 64 55 Resp 19 17 B/P (MAP) 119/67 129/70 Pulse Ox 95 93 O2 Delivery Nasal Cannula Nasal Cannula O2 Flow Rate 2.00 2.00 12/15/21 12/15/21 12/15/21 12/15/21 08:00 08:00 09:00 11:40 Pulse 58 71 Resp 11 25 B/P (MAP) 121/59 137/91 Pulse Ox 95 94 O2 Delivery Nasal Cannula Nasal Cannula Nasal Cannula Nasal Cannula O2 Flow Rate 2.00 2.00 2.00 2.00 12/15/21 12/15/21 12/15/21 12/15/21 12:00 12:00 13:00 15:45 Temp 36.2 36.4 Pulse 57 71 70 Resp 23 12 B/P (MAP) 118/68 145/76 Pulse Ox 93 94 O2 Delivery Nasal Cannula Room Air O2 Flow Rate 2.00 12/15/21 00:00 Intake Total 1800 ml Output Total 700 ml Balance 1100 ml Weight (Pounds): 245 Weight (Ounces): 2.4 Weight (Calculated Kilograms): 111.851541 Side: right Condition: DP/PT pulses palpable, extremity w/d/p Bruising: mild bruising Constitutional: AAO x 3, well-developed, well-nourished Respiratory: No accessory muscle use; other (fair to good, bilateral air entry) Cardiovascular: regular rate-rhythm, S1 and S2, systolic murmur (soft CHRISTO at card base) Gastrointestional: No tender; distended; No guarding, No rebound Extremities: No clubbing, No cyanosis, No significant edema Neurologic/Psychiatric: other (moves all limbs equally) Skin: No rash on exposed areas, No ulcerations on exposed areas Results/Procedures: Labs Laboratory Tests 12/14/21 17:51: White Blood Count 7.4, Red Blood Count 5.06, Hemoglobin 16.3, Hematocrit 47, Mean Corpuscular Volume 93, Mean Corpuscular Hemoglobin 32, Mean Corpuscular Hemoglobin Concent 35, Red Cell Distribution Width 13.1, Platelet Count 211, Mean Platelet Volume 9.7, Immature Granulocyte % (Auto) 1, Neutrophils (%) (Auto) 61, Lymphocytes (%) (Auto) 28, Monocytes (%) (Auto) 7, Eosinophils (%) (Auto) 2, Basophils (%) (Auto) 1, Neutrophils # (Auto) 4.5, Lymphocytes # (Auto) 2.1, Monocytes # (Auto) 0.5, Eosinophils # (Auto) 0.1, Basophils # (Auto) 0.1, Immature Granulocyte # (Auto) 0.1, Prothrombin Time 13.6, INR Comment 1.0, Activated Partial Thromboplast Time 28, Sodium Level 138, Potassium Level 4.4, Chloride Level 107, Carbon Dioxide Level 16L, Anion Gap 15H, Blood Urea Nitrogen 14, Creatinine 0.92, Estimat Glomerular Filtration Rate 92, BUN/Creatinine Ratio 15, Glucose Level 187H, Calcium Level 8.9, Corrected Calcium 9.1, Magnesium Level 1.5L, Total Bilirubin 0.7, Aspartate Amino Transf (AST/SGOT) 38H, Alanine Aminotransferase (ALT/SGPT) 47, Alkaline Phosphatase 60, Myoglobin 56.7, Troponin I < 0.028, Total Protein 7.1, Albumin 3.7 12/14/21 17:59: SARS-CoV-2 RNA (RT-PCR) Not Detected 12/15/21 04:09: White Blood Count 8.9, Red Blood Count 4.67, Hemoglobin 15.0, Hematocrit 44, Mean Corpuscular Volume 93, Mean Corpuscular Hemoglobin 32, Mean Corpuscular Hemoglobin Concent 35, Red Cell Distribution Width 13.2, Platelet Count 165, Mean Platelet Volume 10.0, Immature Granulocyte % (Auto) 0, Neutrophils (%) (Auto) 80H, Lymphocytes (%) (Auto) 12, Monocytes (%) (Auto) 7, Eosinophils (%) (Auto) 0, Basophils (%) (Auto) 1, Neutrophils # (Auto) 7.1, Lymphocytes # (Auto) 1.1, Monocytes # (Auto) 0.6, Eosinophils # (Auto) 0.0, Basophils # (Auto) 0.1, Immature Granulocyte # (Auto) 0.0, Sodium Level 136, Potassium Level 4.3, Chloride Level 108H, Carbon Dioxide Level 16L, Anion Gap 12, Blood Urea Nitrogen 13, Creatinine 0.76, Estimat Glomerular Filtration Rate 100, BUN/Creatinine Ratio 17, Glucose Level 153H, Calcium Level 8.5, Corrected Calcium 8.8, Magnesium Level 1.8, Total Bilirubin 0.8, Aspartate Amino Transf (AST/SGOT) 255H , Alanine Aminotransferase (ALT/SGPT) 77H, Alkaline Phosphatase 60, Total Protein 6.9, Albumin 3.6, Percent Immature Platelet Fraction 2.5, Triglycerides Level 154H, Cholesterol Level 195, LDL Cholesterol Direct 156H, VLDL Cholesterol 31, HDL Cholesterol 30L Laboratory Tests 12/14/21 17:51 12/15/21 04:09 A/P: Assessment: Ac STEMI, inf wall - Most recent cardiac cath of 12-14-21: Coronary artery disease primarily consisting of acute mid vessel occlusion of the left circumflex artery that was successfully stented with Skypoint 3.0 x 33 mm stent. An obtuse marginal branch is jailed by the stent, but does not exhibit significant compromise. The left anterior descending artery has a patent stent in its mid portion that had 60% stenosis in its proximal portion and there is also a 60% stenosis distal to the stent. The stent jails a small caliber diagonal branch that exhibits 99% ostial stenosis and this is a chronic lesion (documented on a cardiac catheterization in 2020). The right coronary artery exhibits mild plaque. Elevated left ventricular end-diastolic pressure (24 mmHg). Wel- preserved global left ventricular systolic function with ejection fraction of 50% to 55%. 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 Quit smoking in 2009, now occ cigar Plan: I discussed his CV issues and diagnostic and interventional procedures undertaken during this hosp with him in detail and answered questions in detail Continue current medication including DAPT Increase activity today Transfer to [facility] Clinical Quality Measures AMI/AHF: ASA po Prior to arrival: HEIDY Bhardwaj MD FACP [facility] Dec 15, 2021 17:14
[2021-12-16] MEDS ORDERED: ATOR80TA76 PO (07:53)
[2021-12-16] MEDS ORDERED: CLOP75TA28 PO (07:53)
[2021-12-16] MEDS ORDERED: MTP25TSR PO (07:53)
[2021-12-16] MEDS: ASPIRIN 81 MG CHEW (CHILDREN'S ASA) PO SCH (08:08)
[2021-12-16] MEDS: CLOPIDOGREL 75 MG (PLAVIX) TABLET PO SCH (08:08)
--- NOTE | 2021-12-16 08:40 | Progress Note - Cardiology ---
Cardiology SOAP Progress Note Subjective: Up ambulating in the room No c/o CP, SOB or palpitations He states he will NOT take any statin d/t previous issues with muscle pain He states he will NOT take any BB d/t previous issues with feeling his feet and hands were cold He feels his BP is controlled and does not wish to be on any anti-hypertensive medications at all Objective: I&O/Vital Signs 12/16/21 12/16/21 12/16/21 12/16/21 00:00 01:00 04:00 07:00 Temp 36.9 37.0 Pulse 60 61 12/16/21 12/16/21 08:00 08:19 Temp 36.8 Pulse 59 Resp 22 B/P (MAP) 128/66 Pulse Ox 92 92 O2 Delivery Room Air Room Air 12/16/21 00:00 Intake Total 1750 ml Output Total 700 ml Balance 1050 ml Weight (Pounds): 245 Weight (Ounces): 2.4 Weight (Calculated Kilograms): 111.449403 Side: right Condition: DP/PT pulses palpable, extremity w/d/p Bruising: mild bruising Constitutional: AAO x 3, well-developed, well-nourished Respiratory: No accessory muscle use; other (fair to good, bilateral air entry) Cardiovascular: regular rate-rhythm, S1 and S2, systolic murmur (soft CHRISTO at card base) Gastrointestional: No tender; distended; No guarding, No rebound Extremities: No clubbing, No cyanosis, No significant edema Neurologic/Psychiatric: other (moves all limbs equally) Skin: No rash on exposed areas, No ulcerations on exposed areas A/P: Assessment: Ac STEMI, inf wall - Most recent cardiac cath of 12-14-21: Coronary artery disease primarily consisting of acute mid vessel occlusion of the left circumflex artery that was successfully stented with Skypoint 3.0 x 33 mm stent. An obtuse marginal branch is jailed by the stent, but does not exhibit significant compromise. The left anterior descending artery has a patent stent in its mid portion that had 60% stenosis in its proximal portion and there is also a 60% stenosis distal to the stent. The stent jails a small caliber diagonal branch that exhibits 99% ostial stenosis and this is a chronic lesion (documented on a cardiac catheterization in 2020). The right coronary artery exhibits mild plaque. Elevated left ventricular end-diastolic pressure (24 mmHg). Wel- preserved global left ventricular systolic function with ejection fraction of 50% to 55%. 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 Quit smoking in 2009, now occ cigar Plan: I discussed his CV issues and diagnostic and interventional procedures undertaken during this hosp with him in detail and answered questions in detail Wants to go home today He states he will NOT take any statin d/t previous issues with muscle pain He states he will NOT take any BB d/t previous issues with feeling his feet and hands were cold He feels his BP is controlled and does not wish to be on any anti-hypertensive medications at all He verbalizes understanding of our recs, but continues to refuse Advise f/u with his primary check pilot, Dr. Lennon in one week Clinical Quality Measures AMI/AHF: ASA po Prior to arrival: ADRIANA Vo Dec 16, 2021 08:40
--- NOTE | 2021-12-16 11:44 | Discharge Inst-Cardiology ---
Discharge Inst-Cardiac Discharge Medications New Medications: Clopidogrel Bisulfate (Clopidogrel) 75 Mg Tablet 75 MG PO DAILY, #90 TAB 3 Refills Continued Medications: Aspirin (Aspirin Ec 81 Mg) 81 Mg Tabec 81 MG PO DAILY Nitroglycerin (Nitroglycerin) 0.4 Mg Tab.subl 0.4 MG SL PRN PRN for CHEST PAIN (ANGINA), #25 TAB 3 Refills Discontinued Medications: Metoprolol Succinate (Metoprolol Succinate) 50 Mg Tab.er.24h 50 MG PO DAILY, #30 TAB 11 Refills Rosuvastatin Calcium (Rosuvastatin Calcium) 20 Mg Tablet 20 MG PO HS, #30 TAB 6 Refills New, Converted or Re-Newed RX: Transmitted to Pharmacy Patient Instructions Patient Instructions: Please schedule follow up to see Dr. Lennon in one week ADRIANA STYLES Dec 16, 2021 11:44
[2021-12-16 12:30] VITALS: BP 128/66
--- NOTE | 2021-12-16 15:27 | Progress Note - Cardiology ---
Cardiology SOAP Progress Note Subjective: No cp or palp or syncope or shortness of breath No n/v/d No groin or leg discomfort Refuses to take beta-jemima or statin Objective: I&O/Vital Signs 12/16/21 12/16/21 12/16/21 12/16/21 04:00 07:00 08:00 08:19 Temp 37.0 36.8 Pulse 61 59 Resp 22 B/P (MAP) 128/66 Pulse Ox 92 92 O2 Delivery Room Air Room Air 12/16/21 12:30 Temp 36.8 Pulse 59 Resp 22 B/P (MAP) 128/66 Pulse Ox 92 O2 Delivery Room Air 12/16/21 00:00 Intake Total 1750 ml Output Total 700 ml Balance 1050 ml Weight (Pounds): 245 Weight (Ounces): 2.4 Weight (Calculated Kilograms): 111.756410 Side: right Condition: DP/PT pulses palpable, extremity w/d/p Bruising: mild bruising Constitutional: AAO x 3, well-developed, well-nourished Respiratory: No accessory muscle use; other (fair to good, bilateral air entry) Cardiovascular: regular rate-rhythm, S1 and S2, systolic murmur (soft CHRISTO at card base) Gastrointestional: No tender; distended; No guarding, No rebound Extremities: No clubbing, No cyanosis, No significant edema Neurologic/Psychiatric: other (moves all limbs equally) Skin: No rash on exposed areas, No ulcerations on exposed areas Results/Procedures: Labs Microbiology 12/14/21 MRSA Screen - Final, Complete MRSA not isolated A/P: Assessment: Ac STEMI, inf wall - Most recent cardiac cath of 12-14-21: Acute mid vessel occlusion of the left circumflex artery that was successfully stented with Skypoint 3.0 x 33 mm stent. An obtuse marginal branch is jailed by this stent, but does not exhibit significant compromise. The left anterior descending artery has a patent stent in its mid portion that had 60% stenosis in its proximal portion and there is also a 60% stenosis distal to the stent. The stent jails a small caliber diagonal branch that exhibits 99% ostial stenosis and this is a chronic lesion (documented on a cardiac catheterization in 2020). The right coronary artery exhibits mild plaque. Elevated left ventricular end-diastolic pressure (24 mmHg). Wel- preserved global left ventricular systolic function with ejection fraction of 50% to 55%. 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 Quit smoking in 2009, now occ cigar Plan: I had a long and detailed discussion with him regarding his diagnoses, treatments undertaken, and future management. I answered his questions in detail Wants to go home today He states he will NOT take any statin d/t previous issues with muscle pain He states he will NOT take any BB d/t previous issues with feeling his feet and hands were cold He feels his BP is controlled and does not wish to be on any anti-hypertensive medications at all He verbalizes understanding of our recs, but continues to refuse He does understand that dual antiplatelet therapy is critically important and states will comply Advise f/u with his primary exchange mechanic, Dr. Lennon in one week Clinical Quality Measures AMI/AHF: ASA po Prior to arrival: HEIDY Bhardwaj MD FACP [facility] Dec 16, 2021 15:27
--- NOTE | 2021-12-16 15:33 | Cardiology Discharge Summary ---
Diagnosis/Chief Complaint Date of Admission Dec 14, 2021 at 20:05 Date of Discharge Dec 16, 2021 at 12:50 Final/Discharge Diagnosis Ac STEMI, inf wall - Most recent cardiac cath of 12-14-21: Acute mid vessel occlusion of the left circumflex artery that was successfully stented with Skypoint 3.0 x 33 mm stent. An obtuse marginal branch is jailed by this stent, but does not exhibit significant compromise. The left anterior descending artery has a patent stent in its mid portion that had 60% stenosis in its proximal portion and there is a lso a 60% stenosis distal to the stent. The stent jails a small caliber diagonal branch that exhibits 99% ostial stenosis and this is a chronic lesion (documented on a cardiac catheterization in 2020). The right coronary artery exhibits mild plaque. Elevated left ventricular end-diastolic pressure (24 mmHg). Wel- preserved global left ventricular systolic function with ejection f raction of 50% to 55%. 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 Quit smoking in 2009, now occ cigar Chief Complaint/HPI Chief Complaint/HPI CC: Chest pain HPI 66 yo man with onset of severe midsternal pain 2 hours prior to presentation, feeling of severe pressure, radiating to shoulders, associated with intermittent nausea and diaphoresis, more severe than he had experienced with a previous heart attack. He denies palp or syncope or swelling Hospital Course: Please refer to our progress note of today's date Discharge Summary Procedures None. Discussion & Recommendations Home Medications Reviewed patient Home Medication Reconciliation performed by pharmacy medication reconciliations certified technician and/or nursing. Patients Allergies have been reviewed. Discharge Home Medications: Reviewed and agree with Discharge Medication list on patient's Discharge Instruction sheet Clinical Quality Measures AMI/AHF: ASA po Prior to arrival: No JOCELYN,ALI MD FACP FAC [facility]S Dec 16, 2021 15:33
== END 2021-12-16 12:50 | disposition home or self-care (01) | DRG 247 ==
LOC: EDUNIT# 17:49 → ER 17:51 → SDC 18:14 → ICU 20:05 → CSD 12-15 14:27
PROVIDERS: ADMIT Internal Medicine Cardiovascular Disease; ATTEND Internal Medicine Cardiovascular Disease
PROC: 4A023N7 Measurement of Cardiac Sampling and Pressure, Left Heart, Percutaneous Approach (ICD-10-PCS; principal; 2021-12-14)
PROC: 027034Z Dilation of Coronary Artery, One Artery with Drug-eluting Intraluminal Device, Percutaneous Approach (ICD-10-PCS; 2021-12-14)
PROC: B2111ZZ Fluoroscopy of Multiple Coronary Arteries using Low Osmolar Contrast (ICD-10-PCS; 2021-12-14)
PROC: B2151ZZ Fluoroscopy of Left Heart using Low Osmolar Contrast (ICD-10-PCS; 2021-12-14)
DX: I21.19 ST elevation (STEMI) myocardial infarction involving other coronary artery of inferior wall (principal); I25.118 Atherosclerotic heart disease of native coronary artery with other forms of angina pectoris; I10 Essential (primary) hypertension; E78.5 Hyperlipidemia, unspecified; E66.9 Obesity, unspecified; Z87.891 Personal history of nicotine dependence; Z79.82 Long term (current) use of aspirin; Z79.899 Other long term (current) drug therapy; Z95.5 Presence of coronary angioplasty implant and graft; K21.9 Gastro-esophageal reflux disease without esophagitis; I25.2 Old myocardial infarction; M19.90 Unspecified osteoarthritis, unspecified site; R73.9 Hyperglycemia, unspecified; Z20.822 Contact with and (suspected) exposure to COVID-19; Z68.32 Body mass index [BMI] 32.0-32.9, adult
CPT/HCPCS: 36415; 71045; 80053; 80061; 83036; 83735; 83874; 84484; 85025; 85610; 85730; 87081; 87636; 93005; 93041; 93306; 93458

== ENCOUNTER → 2022-02-28 | Outpatient (CLI) | payer MEDICARE ==
[~2022-02-28] MED LIST changes: +ATOR80TA76 PO; +CLOP75TA28 PO; +MTP25TSR PO
--- NOTE | 2022-02-28 12:21 | Diagnostic Imaging Report ---
EXAMINATION: CT abdomen and pelvis without contrast, 02/28/2022. TECHNIQUE: Multiple contiguous axial images were obtained through the abdomen and pelvis without the use of intravenous contrast. Auto Exposure Controls were utilized during the CT exam to meet ALARA standards for radiation dose reduction. INDICATION: Elevated PSA. FINDINGS: The visualized lung bases are clear other than a calcified granuloma at the left lung base medially. The nonopacified abdominal viscera limited given the lack of contrast. There is mild fatty infiltration within the liver which is otherwise unremarkable. The spleen is unremarkable. There is small nodularity, subcentimeter in nature, within the left adrenal gland, possibly adenoma but better characterized with dedicated adrenal protocol. The right adrenal gland is unremarkable in appearance. The pancreas appears normal. The kidneys demonstrate no nephrolithiasis or hydronephrosis. There is an exophytic hypodensity along the mid aspect of the lateral left kidney. This measures 1.5 cm in greatest dimension. Hounsfield units are consistent with a cyst. Left kidney is otherwise normal with no nephrolithiasis or hydronephrosis. Appendicoliths are noted within the appendix which is otherwise normal with no surrounding inflammatory change. There is diverticular disease without evidence for acute diverticulitis. Mild wall thickening of the urinary bladder is noted likely due to incomplete distention. Cystitis should be clinically excluded. There are bilateral fat-containing inguinal hernias, left greater than right. The prostate gland contains a few calcifications but otherwise unremarkable on this noncontrast examination. If further evaluation is warranted, dedicated MRI of the prostate gland could provide better characterization for underlying mass. There is no free fluid or free air within the abdomen or pelvis. Incidentally noted is a small fat-containing umbilical hernia. Atherosclerotic disease is also seen. There is no acute osseous abnormality. IMPRESSION: 1. No significant abnormality in the prostate gland on this noncontrast examination. See above discussion and recommendations. 2. Mild hepatic steatosis. 3. Small nodule in the left adrenal gland, better characterized with dedicated adrenal protocol CT. Other incidental findings as noted above. Dictated by: Dictated on workstation # [id number]
--- NOTE | 2022-02-28 17:11 | Diagnostic Imaging Report ---
INDICATION: Elevated PSA Whole-body bone scan performed in the routine fashion with 25.30 mCi of technetium 99m MDP. There is physiologic uptake of the tracer throughout the skeleton. Tracer is visualized in both kidneys as well as in the bladder. There is no significant area of abnormal uptake to suggest metastatic disease. There is mild degenerative change of both shoulders. IMPRESSION: No scintigraphic evidence of osseous metastatic disease. Dictated by: Dictated on workstation # [id number]
== END ==
LOC: CARD 11:00
PROVIDERS: ATTEND Urology
DX: K76.0 Fatty (change of) liver, not elsewhere classified (principal); E27.9 Disorder of adrenal gland, unspecified
CPT/HCPCS: 74176; 78306; A9503

== ENCOUNTER → 2022-03-21 | Outpatient (CLI) | payer MEDICARE, OTHER ==
[~2022-03-21] MED LIST changes: +CATHETER FLUSH 10 ML SYR IV PRN; +HOLD METFORMIN - RECEIVED CONTRAST 20 ML VIAL IV SCH; +IOHEXOL 350 MG/ML 100 ML (OMNIPAQUE 350) VIAL IV ONE; +NS 100 ML (IVPB) BAG IV ONE
[2022-03-21 09:51] LABS: CREATININE SERUM 0.84 MG/DL (0.60-1.30)
--- NOTE | 2022-03-21 12:07 | Diagnostic Imaging Report ---
EXAMINATION: CT abdomen with and without intravenous contrast. TECHNIQUE: Precontrast acquisitions were acquired through the abdomen. Multiple contiguous axial images were obtained through the abdomen after the administration of intravenous contrast. All CT scans use one or more of the following dose optimizing techniques: automated exposure control, MA and/or KvP adjustment based on patient size and exam type or iterative reconstruction. HISTORY: Adrenal nodule. COMPARISON: 02/28/2022 FINDINGS: Limited views of the lower thorax are unremarkable. The liver is normal without focal lesion. There is no biliary ductal dilation. Gallbladder is normal. Pancreas is normal. Spleen is normal. There is a 1.0 cm left adrenal nodule. The absolute and relative washout values are consistent with an adenoma. There is a simple cyst in left kidney. No suspicious renal lesions. There is no hydronephrosis. Visualized bowel is normal in caliber without obstruction or inflammation. No free fluid or air. No abdominal lymphadenopathy. Aorta is normal in caliber without aneurysm. There are no suspicious osseus lesions. IMPRESSION: 1. Left adrenal nodule has absolute and relative washout characteristics in keeping with an adenoma. No specific follow-up needed. Dictated by: Dictated on workstation # [id number]
== END ==
LOC: RAD 09:13
PROVIDERS: ATTEND Urology
DX: D35.02 Benign neoplasm of left adrenal gland (principal)
CPT/HCPCS: 36415; 74170; 82565; 84520

== ENCOUNTER 2023-01-08 10:36 | Outpatient (RCR) | payer MEDICARE ==
[~2023-01-08 10:36] MED LIST changes: -CATHETER FLUSH 10 ML SYR IV PRN; -HOLD METFORMIN - RECEIVED CONTRAST 20 ML VIAL IV SCH; -IOHEXOL 350 MG/ML 100 ML (OMNIPAQUE 350) VIAL IV ONE; -NS 100 ML (IVPB) BAG IV ONE
== END 2023-01-19 | disposition home or self-care (01) ==
LOC: ONC 10:36
PROVIDERS: ATTEND Radiology Radiation Oncology
DX: C61 Malignant neoplasm of prostate (principal); F17.290 Nicotine dependence, other tobacco product, uncomplicated
CPT/HCPCS: 99205

== ENCOUNTER 2023-04-10 15:07 | Day surgery (SDC) | payer MEDICARE ==
[~2023-04-10] VITALS: Ht 177.8 cm; Wt 102.7 kg
[2023-04-10] MEDS ORDERED: LIDOCAINE 1% INJ 20 ML VIAL ONE (15:11)
[2023-04-10] MEDS ORDERED: HEParin (CATH LAB) 2,000 ML IV ONE (15:12)
[2023-04-10] MEDS ORDERED: NS IV 1000 ML 1,000 ML ONE (15:12)
[2023-04-10] MEDS ORDERED: MIDAZOLAM 5 MG/5 ML (VERSED) VIAL ONE (15:13)
[2023-04-10] MEDS ORDERED: NITRO DRIP 25000 MCG/D5W 250 ML IV ONE (15:13)
[2023-04-10] MEDS ORDERED: fentaNYL INJ 100 MCG/2 ML AMP ONE (15:13)
[2023-04-10] MEDS ORDERED: HEParin 1000 UNIT/ML (10ML VIAL) FOR BOLUS ONE (15:13)
[2023-04-10] MEDS ORDERED: VERAPAMIL 5 MG/2 ML (CALAN) VIAL IV ONE (15:19)
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
[2023-04-10] MEDS ORDERED: morphine INJ 10 MG/ML 1ML (SYR OR VIAL) IVP STA (15:50)
[2023-04-10 15:51] LABS: BASOPHILS # (AUTO) 0.1 10^3/uL (0.0-0.1); BASOPHILS % (AUTO) 1 % (0-10); EOSINOPHILS # (AUTO) 0.1 10^3/uL (0.0-0.3); EOSINOPHILS % (AUTO) 1 % (0-10); HEMATOCRIT 47 % (40-54); HEMOGLOBIN 16.3 g/dL (13.3-17.7); LYMPHOCYTES # (AUTO) 1.6 10^3/uL (1.0-4.0); LYMPHOCYTES % (AUTO) 17 % (12-44); MEAN CORPUSCULAR HEMOGLOBIN 32 pg (25-34); MEAN CORPUSCULAR HGB CONC 35 g/dL (32-36); MEAN CORPUSCULAR VOLUME 93 fL (80-99); MEAN PLATELET VOLUME 9.5 fL (9.0-12.2); MONOCYTES # (AUTO) 0.5 10^3/uL (0.0-1.0); MONOCYTES % (AUTO) 5 % (0-12); NEUTROPHILS # (AUTO) 7.1 10^3/uL (1.8-7.8); NEUTROPHILS % (AUTO) 76 % (42-75); PLATELET COUNT 185 10^3/uL (130-400); WHITE BLOOD COUNT 9.3 10^3/uL (4.3-11.0)
--- NOTE | 2023-04-10 15:55 | Diagnostic Imaging Report ---
INDICATION: Chest pain. TECHNIQUE: Frontal chest obtained at 03:40 p.m. and compared to 12/14/2021. FINDINGS: Heart is normal in size. Mediastinal silhouette is unremarkable. There is mild central vascular congestion without focal infiltrate or pneumothorax or pleural fluid. IMPRESSION: Mild central vascular congestion, without focal infiltrate or pneumothorax or pleural fluid. Dictated by: Dictated on workstation # [id number]
[2023-04-10 16:06] LABS: ALBUMIN 4.3 GM/DL (3.2-4.5); CHLORIDE 107 MMOL/L (98-107); POTASSIUM 3.8 MMOL/L (3.6-5.0); SODIUM 140 MMOL/L (135-145)
[2023-04-10 16:07] LABS: CALCIUM 9.6 MG/DL (8.5-10.1)
[2023-04-10 16:08] LABS: GLUCOSE 161 MG/DL (70-105); TOTAL PROTEIN 7.6 GM/DL (6.4-8.2)
[2023-04-10 16:09] VITALS: BP 162/92
[2023-04-10 16:09] LABS: CARBON DIOXIDE 18 MMOL/L (21-32)
[2023-04-10 16:10] LABS: BILIRUBIN,TOTAL 0.6 MG/DL (0.1-1.0)
[2023-04-10 16:12] LABS: ALKALINE PHOSPHATASE 67 U/L (40-136); CREATININE SERUM 1.18 MG/DL (0.60-1.30); GFR ESTIMATED 68; PROTHROMBIN TIME PATIENT 13.4 SEC (12.2-14.7)
[2023-04-10 16:13] LABS: BUN/CREATININE RATIO 14
--- NOTE | 2023-04-10 16:14 | Consultation-Cardiology ---
HPI-Cardiology Cardiology Consultation Date of Consultation 04/10/23 Date of Admission Time Seen by Provider: 16:10 Indication: Chest pain HPI 67 years old gentleman with history of coronary artery disease, multiple interventions in the past. Has stopped his Plavix about 5 days ago in preparation for seeding of his prostate. He started to have chest pain this afternoon called ambulance and came into the emergency room initial EKG showed some changes noted by the ambulance, on arrival to the hospital while he was still having an active chest pain, did not have any active EKG changes. On my evaluation he was still having chest pain radiating to the left arm. No shortness of breath. No palpitation Home Medications & Allergies Allergies: Coded Allergies: No Known Drug Allergies (Unverified , 06/27/10) Home Medication List Reviewed: Yes EFC-Qrhklm-Cnytot Hx Patient Social History Marital Status: Employed/Student: employed Smoking Status: Current Everyday Smoker Type Used: Pipe 2nd Hand Smoke Exposure: Yes Recent Hopitalizations: Yes (BROKEN BACK TWICE, LT LATERAL ANKLE LIGAMENT) Alcohol Use?: Yes Substance type: Marijuana Past Medical History Discussed below Family Medical History Family History: Cardiovascular disease 19 MOTHER Dementia 19 MOTHER FH: brain tumor 19 FATHER Myocardial infarction Review of Systems-General Review of Systems Constitutional: see HPI, diaphoresis EENTM: see HPI, no symptoms reported Respiratory: no symptoms reported, see HPI, dyspnea on exertion Cardiovascular: see HPI, chest pain Gastrointestinal: no symptoms reported, see HPI Genitourinary: no symptoms reported, see HPI Musculoskeletal: no symptoms reported Skin: see HPI Psychiatric/Neurological: No Symptoms Reported Reviewed Test Results Reviewed Test Results Lab Laboratory Tests Test 04/10/23 15:47 Range/Units White Blood Count 9.3 4.3-11.0 10^3/uL Red Blood Count 5.03 4.30-5.52 10^6/uL Hemoglobin 16.3 13.3-17.7 g/dL Hematocrit 47 40-54 % Mean Corpuscular Volume 93 80-99 fL Mean Corpuscular Hemoglobin 32 25-34 pg Mean Corpuscular Hemoglobin Concent 35 32-36 g/dL Red Cell Distribution Width 13.5 10.0-14.5 % Platelet Count 185 130-400 10^3/uL Mean Platelet Volume 9.5 9.0-12.2 fL Immature Granulocyte % (Auto) 0 % Neutrophils (%) (Auto) 76 H 42-75 % Lymphocytes (%) (Auto) 17 12-44 % Monocytes (%) (Auto) 5 0-12 % Eosinophils (%) (Auto) 1 0-10 % Basophils (%) (Auto) 1 0-10 % Neutrophils # (Auto) 7.1 1.8-7.8 10^3/uL Lymphocytes # (Auto) 1.6 1.0-4.0 10^3/uL Monocytes # (Auto) 0.5 0.0-1.0 10^3/uL Eosinophils # (Auto) 0.1 0.0-0.3 10^3/uL Basophils # (Auto) 0.1 0.0-0.1 10^3/uL Immature Granulocyte # (Auto) 0.0 0.0-0.1 10^3/uL Sodium Level 140 135-145 MMOL/L Potassium Level 3.8 3.6-5.0 MMOL/L Chloride Level 107 98-107 MMOL/L Carbon Dioxide Level 18 L 21-32 MMOL/L Anion Gap 15 H 5-14 MMOL/L Glucose Level 161 H 70-105 MG/DL Calcium Level 9.6 8.5-10.1 MG/DL Corrected Calcium 9.4 8.5-10.1 MG/DL Total Bilirubin 0.6 0.1-1.0 MG/DL Total Protein 7.6 6.4-8.2 GM/DL Albumin 4.3 3.2-4.5 GM/DL Physical Exam Physical Exam Vital Signs Vital Signs - First Documented 04/10/23 15:07 Temp 35.3 Pulse 52 Resp 16 B/P (MAP) 151/78 (102) Pulse Ox 94 O2 Delivery Room Air Capillary Refill : Less Than 3 Seconds Height, Weight, BMI Height: 5'9.00" Weight: 245lbs. 2.4oz. 111.668817vd; 32.00 BMI Method:Estimated General Appearance: No Apparent Distress, WD/WN Eyes: Bilateral Eye Normal Inspection, Bilateral Eye PERRL, Bilateral Eye EOMI HEENT: Normal ENT Inspection Neck: Normal Inspection; No JVD Respiratory: Chest Non Tender, Lungs Clear, Normal Breath Sounds, No Accessory Muscle Use Cardiovascular: Regular Rate, Rhythm, No Edema, No Murmur, Normal Peripheral Pulses, Other (Borderline heart rate in the low 50s) Gastrointestinal: Normal Bowel Sounds, Non Tender, Soft Back: Normal Inspection, No CVA Tenderness, No Vertebral Tenderness Extremity: Normal Inspection, No Pedal Edema Neurologic/Psychiatric: Alert, Oriented x3 Skin: Normal Color, Diaphoresis Lymphatic: No Adenopathy A/P-Cardiology Admission Diagnosis Chest pain Non-ST elevation myocardial infarction Hypertension Hyperlipidemia Assessment/Plan Chest pain, acute non-ST elevation myocardial infarction Planning to proceed with emergency cardiac catheterization possible PTCA Coronary artery disease, multiple intervention in the past. Cardiac catheterization February 2012 with 95% stenosis in the proximal stent in the LAD, had balloon angioplasty 3 x 20 mm with good results Cardiac catheterization and July 2021 showed patent stent in the mid LAD severe disease of the second diagonal branch was jailed by the stent, treated conservatively Cardiac catheterization was done in November 2021 after having an acute myocardial infarction, had deployment of Skypoint 3 x 33 stent in the circumflex artery that was occluded. The LAD stent was patent, the second diagonal artery was severely diseased did not change compared to the previous study Hypertension, restart home medication monitor blood pressure Hyperlipidemia, intolerant to statin Prostate cancer, following with Dr. Zavala, scheduled for radioactive seeds placement this week BMI 32. Clinical Quality Measures AMI/AHF: ASA po Prior to arrival: Yes (324 MG) BRYN GONZALES MD Apr 10, 2023 16:14
[2023-04-10 16:15] LABS: ALANINE AMINOTRANSFERASE 29 U/L (0-55); MAGNESIUM 1.5 MG/DL (1.6-2.4)
--- NOTE | 2023-04-10 16:15 | Cardiac Procedure Note-CS/ASA ---
Pre-Procedure Note Pre-Op Procedure Note Date of Available H&P: Apr 10, 2023 Date H&P Reviewed: Apr 10, 2023 Time H&P Reviewed: 16:14 History & Physical: H&P Reviewed, Patient Examed, No changes noted Pre-Operative Diagnosis: NSTMI Moderate Sedation PreProcedure Time 16:15 ASA Score 3 Airway Lungs Heart ASA score ASA 1: a normal healthy patient ASA 2: a patient with a mild systemic disease (mid diabetes, controlled hypertension, obesity ASA 3: a patient with a severe systemic disease that limits activity (angina, COPD, prior Myocardial infarction) ASA 4: a patient with an incapacitating disease that is a constant threat to life (CHF, renal failure) ASA 5: a moribund patient not expected to survive 24 hrs. (ruptured aneurysm) ASA 6: a declared brain- patient whose organs are being harvested. For emergent operations, add the letter E after the classification Mallampati Classification Grade 3 Sedation Plan Analgesia, Amnesia, Plan communicated to team members, Discussed options with patient/fam, Discussed risks with patient/fam The patient is an appropriate candidate to undergo the planned procedure, sedation, and anesthesia. The patient immediately re-assessed prior to indication. BRYN GONZALES MD Apr 10, 2023 16:15
[2023-04-10] MEDS ORDERED: CLOPIDOGREL 300 MG (PLAVIX) TABLET PO ONE (16:53)
--- NOTE | 2023-04-10 17:07 | Cardiac Cath Report ---
Cardiac Cath Report Physician (s)/Internal Controls Analyst (s) Physician BRYN GONZALES MD Pre-Procedure Diagnosis Pre-Procedure Diagnosis: NSTMI Post-Procedure Note Procedure Start Date: Apr 10, 2023 Name of Procedure: Left heart catheterization Balloon angioplasty to the mid LAD Findings/Procedure Note PROCEDURE NOTE: 67-year-old gentleman with history of coronary artery disease, admitted with acute chest pain and dynamic EKG changes, on my evaluation he was having significant chest pain radiating to the left arm, decision was made to proceed with cardiac catheterization after discussing it with the patient and his . After explaining the procedure to the patient, all pros and cons were explained, all questions were answered. The patient signed the consent and then he was placed in the cardiac catheterization laboratory. Groin was prepped in SL fashion local anesthesia was used. Sheath placed in the right radial artery, Belle catheter was advanced and prolapsed to the left ventricular cavity, pressure was measured left ventriculogram was done, pullback LV to aorta was done, engage the right and left coronary system. Patient had 90% in-stent restenosis in the mid LAD. Nathaniel left guide was used, 6000 units of heparin were given, BMW wire was advanced and parked in the distal LAD then I attempted balloon angioplasty with 3 x 20 trek balloon. Patient had watermelon seed effect on the balloon and it kept sliding did about 20 inflations at low pressure until we were able to capture the lesion and dilated up to 10 josue. Angiogram postintervention showed excellent result with 0% residual stenosis. At the end of the procedure the sheath was removed. Vascular band was used FINDINGS: Hemodynamics LV 105/11 end-diastolic pressure of 11 Aorta 108/82 mean of 58 ANATOMY: Left Main is free of obstructive disease Left Anterior Descending has 90% in-stent restenosis, successful balloon angio plasty using 3 x 20 mm trek balloon with multiple inflation, 0% residual stenosis. Second diagonal artery has been jailed and has 90% stenosis, small artery did not private branch exchange repairer the past 5 years Left Circumflex is moderate in size with patent stent, nondominant artery Right Coronary Artery is dominant artery, small to moderate in size with no obstructive disease LV Gram was done showing normal left ventricular size, ejection fraction 60%, no segmental wall motion abnormality PERCUTANEOUS INTERVENTION: Pre stenosis 90% Post Stenosis 0% Pre SANDRA flow 2 Post SANDRA flow 3 Dominance right coronary artery CONCLUSION: Unstable angina, non-ST elevation myocardial infarction with 90% in-stent restenosis in the mid LAD successful balloon angioplasty with no residual stenosis Severe stenosis at the ostial second diagonal artery that has been jailed with the stent over 5 years ago, did not change compared to the previous study. Patent stent in the circumflex artery with no obstructive disease No obstructive disease in the right coronary artery Normal left ventricular size and systolic function, ejection fraction 60% DISCUSSION AND RECOMMENDATION: Restart aspirin and Plavix, restart ezetimibe and fenofibrate and monitor tolerance and response Anesthesia Type: Conscious Sedation Estimated blood loss (mL): 20 ml Contrast Amount: 65 ml Post-Procedure Diagnosis Post-operative diagnosis: Non-ST elevation myocardial infarction Coronary artery disease Hypertension Hyperlipidemia BRYN GONZALES MD Apr 10, 2023 17:07
[2023-04-10] MEDS: NS IV 1000 ML 1,000 ML IV SCH (17:35)
[2023-04-10] MEDS ORDERED: eZETimibe 10 MG (ZETIA) TABLET PO SCH (21:00)
[2023-04-10] MEDS ORDERED: FENOFIBRATE, MICRO 67 MG (LOFIBRA) CAPSULE PO SCH (21:00)
[2023-04-11] MEDS: NS IV 1000 ML 1,000 ML IV SCH (01:19)
[2023-04-11 05:52] LABS: CHOLESTEROL 207 MG/DL (< 200); HDL CHOLESTEROL 33 MG/DL (40-60); TRIGLYCERIDES 189 MG/DL (<150); VLDL CHOLESTEROL 38 MG/DL (5-40)
[2023-04-11] MEDS ORDERED: EMPAGLIFLOZIN 10 MG TABLET (JARDIANCE) PO SCH (09:00)
[2023-04-11] MEDS ORDERED: PANTOPRAZOLE 40 MG (PROTONIX) TAB PO SCH (09:00)
[2023-04-11] MEDS ORDERED: ASPIRIN E.C. 81 MG (ECOTRIN) TAB PO SCH (09:00)
[2023-04-11] MEDS ORDERED: CLOPIDOGREL 75 MG (PLAVIX) TABLET PO SCH (09:00)
--- NOTE | 2023-04-11 09:58 | Cardiology Progress Note ---
Subjective Date Seen by Provider: Apr 11, 2023 Time Seen by Provider: 08:20 Subjective/Events-last exam Patient is sitting up in bed, eating breakfast. Denies any further episode of chest pain. Objective-Cardiology Exam Last Set of Vital Signs Vital Signs 04/11/23 07:42 Temp 36.3 Pulse 76 Resp 12 B/P (MAP) 177/104 (128) Pulse Ox 97 O2 Delivery Room Air I&O Intake and Output 04/11/23 00:00 Intake Total 1700 ml Output Total 700 ml Balance 1000 ml Intake Oral 100 ml IV Total 1600 ml Output Urine Total 700 ml Daily Weight Change No General: Alert, Oriented X3, Cooperative HEENT: Atraumatic, PERRLA Neck: Supple Lungs: Clear to Auscultation Heart: Regular Rate, Normal S1, Normal S2 Results Lab Laboratory Tests 04/10/23 15:47 A/P-Cardiology Admission Diagnosis Chest pain Non-ST elevation myocardial infarction Hypertension Hyperlipidemia Assessment/Plan Chest pain, acute non-ST elevation myocardial infarction Underwent cardiac catheterization with balloon angioplasty to mid LAD as discussed below Started on ASA and Plavix Coronary artery disease, multiple intervention in the past. Cardiac catheterization February 2012 with 95% stenosis in the proximal stent in the LAD, had balloon angioplasty 3 x 20 mm with good results Cardiac catheterization and July 2021 showed patent stent in the mid LAD severe disease of the second diagonal branch was jailed by the stent, treated conservatively Cardiac catheterization was done in November 2021 after having an acute myocardial infarction, had deployment of Skypoint 3 x 33 stent in the circumflex artery that was occluded. The LAD stent was patent, the second diagonal artery was severely diseased did not change compared to the previous study Cardiac catheterization done April 10, 2023, non-ST elevation myocardial infarction with 90% in-stent restenosis in the mid LAD successful balloon angioplasty with no residual stenosis Severe stenosis at the ostial second diagonal artery that has been jailed with t he stent over 5 years ago, did not change compared to the previous study. Patent stent in the circumflex artery with no obstructive disease No obstructive disease in the right coronary artery Normal left ventricular size and systolic function, ejection fraction 60% Hypertension, continue to monitor blood pressure. Hyperlipidemia, intolerant to statin Prostate cancer, following with Dr. Zavala, scheduled for radioactive seeds placement this week. BMI 32. Supervisory-Addendum Brief Supervisory Addendum Participated in pt care: history, MDM, physical Personally performed: exam, history, MDM Care discussed with: MARI Results interpretation: Verified all documentation Notes: Patient was seen and evaluated with Mario, examination performed, management plan was discussed, agree with the current scribed note, I made few changes to the note using Italic font Patient was seen at bedside, laying down comfortably, feeling better Discussed the need to be on aspirin and Plavix for at least 6 weeks after the balloon angioplasty to the LAD Discussed compliance with medication Arrange for follow-up with Dr. Hull in 2 to 4 weeks Hospital course: Patient was hospitalized and emergency cardiac catheterization was done, balloon angioplasty done to the LAD Planning for discharge and follow-up with primary wrapper layer and examiner soft work Final diagnosis Non-ST elevation myocardial infarction Coronary artery disease Hypertension Hyperlipidemia MARIO LARSON Apr 11, 2023 09:58 BRYN GONZALES MD Apr 11, 2023 11:12
[2023-04-11] MEDS ORDERED: EMPA10TA PO (10:38)
[2023-04-11] MEDS ORDERED: EZET10TA49 PO (10:38)
[2023-04-11] MEDS ORDERED: CLOP75TA28 PO (10:38)
[2023-04-11] MEDS ORDERED: PANT40TA52 PO (10:38)
[2023-04-11] MEDS ORDERED: FENO67CA14 PO (10:38)
--- NOTE | 2023-04-11 11:10 | Discharge Inst-Post CATH ---
Discharge Inst-CATH/EP Problems Reviewed?: Yes Post Cardiac Cath/EP D/C Inst Follow Up/Plan Appointment with Dr. Alva's office in 2 to 4 weeks <b>CARDIAC CATH/EP PROCEDURE DISCHARGE INSTRUCTIONS</b> ACTIVITY * Go Home directly and rest. * Limit activity of the leg (or wrist if it was used) for 7 days including ae robics, swimming, jogging, bicycling, etc. * Restrict stair-climbing for 7 days if possible, if not, climb up with your non-cath leg, then bring together on the same step. * Avoid lifting, pushing, pulling or excessive movement of the affected extrem ity for 7 days. * Customary sexual activity may be resumed after 2 days-use caution not to use a position that strains or causes pain to the affected extremity. * No driving for 24 hours. * NO SMOKING. * Avoid straining for bowel movements for 7 days. * Gentle walking on level ground is allowed. * Returning to work will depend on the type of procedure and the results. Your doctor will discuss this with you. CALL YOUR DOCTOR FOR ANY OF THE FOLLOWING: *If bleeding from the puncture site occurs- Apply gentle pressure to site with clean cloth and call your doctor or EMS. * If a knot or lump forms under the skin, increases in size, or causes pain. * If bruising appears to be worsening or moving further down your leg instead of disappearing. * Temperature above 101 F. CARE OF YOUR GROIN INCISION; * Bruising or purple discoloration of the skin near the puncture site is common. * You may shower only, no bathtub bathing for 5 days. Be careful to avoid slipping as your leg may feel stiff. * If a closure device was used on your femoral artery, please see the attached guide regarding care of the device and your leg. * Leave dressing on FOR 24 hours. CARE OF YOUR WRIST INCISION; * Bruising or purple discoloration of the skin near the puncture site is common. * You may shower. * DO NOT submerge wrist. * Leave dressing on FOR 24 hours. BRYN GONZALES MD Apr 11, 2023 11:10
--- NOTE | 2023-04-11 12:39 | Short Stay Summary-Hospitalist ---
History of Present Illness HPI/Chief Complaint Jose Francisco Skelton is a 67 year old male with PMH CAD, HTN, HLD, prostate cancer, who presented with chest pain. He has been off his Plavix for several days prior to a prostate procedure. He began having chest pain radiating to his arm and came to the ER. Cardiology took him to the cath lab radiology technician and performed a balloon angioplasty. I evaluated him after his intervention. He is no longer having any chest pain. He denies shortness of breath. He is feeling like he is almost back to normal now. Source: patient Exam Limitations: no limitations Date Seen 04/11/23 Time Seen by a Provider: 09:25 Attending Physician [facility] PCP Admitting Physician: Attending Physician: Romain Gross MD Referring Physician Date of Admission Home Medications & Allergies Home Medications Reviewed patient Home Medication Reconciliation performed by pharmacy medication reconciliations diploma pharmacy technician and/or nursing. Patients Allergies have been reviewed. Allergies Allergies Coded Allergies No Known Drug Allergies (Unverified06/27/10) Past Phptusu-Dfyned-Pthfan Hx Patient Social History Marrital Status: Employed/Student: employed Tobacco Use?: Yes Tobacco type used: Cigars, Cigarettes Smoking Status: Current Everyday Smoker Use of E-Cig and/or Vaping dev: No Substance use?: Yes Substance type: Marijuana Substance frequency: Couple times a week Alcohol Use?: Yes Alcohol type: Hard Liquor Alcohol Frequency: Several times a month Pt feels they are or have been: No Immunizations Up To Date First/Initial COVID19 Vaccinat: NONE Second COVID19 Vaccination Al: NONE Tetanus Booster (TDap): More Than 5 Years Hepatitis A: No Hepatitis B: No Current Status Advance Directives: No Communicates: Verbally Primary Language: Djib[place]ian Preferred Spoken Language: [place]ib[place]ian Is interpretation needed?: No Sensory deficits: Vision impairment, Hearing impairment Implanted or Applied Medical D: Stents Past Medical History Surgeries: Coronary Stent Currently Using CPAP: No Currently Using BIPAP: No Coronary Artery Disease, Heart Attack Sexually Transmitted Disease: No Gastroesophageal Reflux Arthritis, Back Injury Cataract Loss of Vision: Denies Hearing Impairment: Hard of Hearing Blood Disorders: No Family Medical History Cardiovascular disease 19 MOTHER Dementia 19 MOTHER FH: brain tumor 19 FATHER Myocardial infarction Review of Systems Constitutional: no symptoms reported Respiratory: no symptoms reported Cardiovascular: chest pain Gastrointestinal: no symptoms reported Physical Exam Physical Exam Vital Signs Vital Signs - First Documented 04/10/23 15:07 Temp 35.3 Pulse 52 Resp 16 B/P (MAP) 151/78 (102) Pulse Ox 94 O2 Delivery Room Air Capillary Refill : Less Than 3 Seconds Height, Weight, BMI Height: 5'9.00" Weight: 245lbs. 2.4oz. [id number]; 32.48 BMI Method:Estimated General Appearance: No Apparent Distress, Obese Eyes: Bilateral Eye Normal Inspection, Bilateral Eye PERRL, Bilateral Eye EOMI HEENT: PERRL/EOMI, Pharynx Normal Neck: Normal Inspection, Supple Respiratory: Chest Non Tender, Lungs Clear, Normal Breath Sounds, No Respirat ory Distress Cardiovascular: Regular Rate, Rhythm, No Edema, No Murmur Gastrointestinal: Normal Bowel Sounds, Non Tender, Soft Extremity: Normal Inspection, Non Tender, No Pedal Edema Neurologic/Psychiatric: Alert, Oriented x3, Normal Mood/Affect Skin: Normal Color, Warm/Dry Results Results/Procedures Labs Laboratory Tests 04/10/23 15:47 Patient resulted labs reviewed. Imaging: Reviewed Imaging Report Short Stay Diagnosis Discharge Diagnosis-Short Stay Admission Diagnosis Chest pain Final Discharge Diagnosis NSTEMI Conclusion Plan NSTEMI Coronary stent restenosis CAD HTN HLD Obesity Cardiology performed balloon angioplasty 04/10 Resume ASA and Plavix Continue Fenofibrate and Ezetimibe Follow up with Cardiology as scheduled Diagnosis/Problems Diagnosis/Problems (1) NSTEMI (non-ST elevated myocardial infarction) Status: Acute (2) Coronary stent restenosis Status: Acute Qualifiers: Qualified Codes: T82.855A - Stenosis of coronary artery stent, initial encounter (3) HTN (hypertension) Status: Chronic (4) HLD (hyperlipidemia) Status: Chronic (5) Obesity Status: Chronic (6) CAD (coronary artery disease) Status: Acute Qualifiers: Clinical Quality Measures AMI/AHF: ASA po Prior to arrival: Yes (324 MG) ISABEL MAYBERRY MD Apr 11, 2023 12:39
== END 2023-04-11 11:45 | disposition home or self-care (01) ==
LOC: EDUNIT# 15:07 → ER 15:08 → CATH 15:37 → CSD 17:14 → CATH 04-11 11:45
PROVIDERS: ATTEND Internal Medicine Cardiovascular Disease
DX: I21.4 Non-ST elevation (NSTEMI) myocardial infarction (principal); T82.855A Stenosis of coronary artery stent, initial encounter; I10 Essential (primary) hypertension; E78.5 Hyperlipidemia, unspecified; E66.9 Obesity, unspecified; I25.110 Atherosclerotic heart disease of native coronary artery with unstable angina pectoris; F17.210 Nicotine dependence, cigarettes, uncomplicated; F17.290 Nicotine dependence, other tobacco product, uncomplicated; Z95.5 Presence of coronary angioplasty implant and graft; Z28.310 Unvaccinated for COVID-19; C61 Malignant neoplasm of prostate; Z68.32 Body mass index [BMI] 32.0-32.9, adult
CPT/HCPCS: 71045; 80053; 80061; 83735; 83874; 84484 ×2; 85025; 85610; 85730; 93005; 93041; 93454; 99284; C1725; C1769 ×2; C1887 ×2; C1894; C9606; 36415